=== PATIENT | female | born 1995 | race Caucasian/White ===

== ENCOUNTER 2018-08-06 12:05 | Emergency (ER) | payer OTHER ==
--- NOTE | 2018-08-06 12:29 | ERPHSYRPT ---
- History of Present Illness Time Seen by Provider: 08/06/18 12:22 Historian: patient, family Exam Limitations: no limitations Physician History: The patient is a 22-year-old morbidly obese female with her grandmother complaining of diarrhea and vomiting with abdominal pain that began this morning before going to work. Abdominal pain is in the mid abdomen. She had at least 6 loose stools this morning. She had 2 episodes of vomiting. She denies fever or chills. When she was at work, she was lightheaded. Her past medical history is significant for "stomach issues", polycystic ovarian disease , morbid obesity, GERD, and pilonidal cyst removal. Timing/Duration: today Activities at Onset: none Quality: aching Abdominal Pain Onset Location: epigastric Pain Radiation: no radiation Severity of Pain-Max: moderate Severity of Pain-Current: mild Modifying Factors: Improves With: nothing Associated Symptoms: diarrhea, nausea, vomiting, No fever/chills Previous symptoms: no prior history - Review of Systems Constitutional: No Fever, No Chills Eyes: No Symptoms Ears, Nose, & Throat: No Symptoms Respiratory: No Cough, No Dyspnea Cardiac: No Chest Pain, No Edema, No Syncope Abdominal/Gastrointestinal: Abdominal Pain, Nausea, Vomiting, Diarrhea Genitourinary Symptoms: No Dysuria Musculoskeletal: No Back Pain, No Neck Pain Skin: No Symptoms Neurological: No Dizziness, No Focal Weakness, No Sensory Changes Psychological: No Symptoms Endocrine: No Symptoms Hematologic/Lymphatic: No Symptoms Immunological/Allergic: No Symptoms All Other Systems: Reviewed and Negative - Nursing Vital Signs Nursing Vital Signs: Initial Vital Signs Temperature 98.4 F 08/06/18 12:20 Pulse Rate 106 H 08/06/18 12:20 Respiratory Rate 18 08/06/18 12:20 Blood Pressure 139/88 08/06/18 12:20 O2 Sat by Pulse Oximetry 98 08/06/18 12:20 Pain Scale Pain Intensity 2 - Physical Exam General Appearance: no apparent distress, alert, obese Eye Exam: PERRL/EOMI, eyes nml inspection Ears, Nose, Throat Exam: normal ENT inspection, pharynx normal, moist mucous membranes Neck Exam: normal inspection, non-tender, supple, full range of motion Respiratory Exam: normal breath sounds, lungs clear, No respiratory distress Cardiovascular Exam: regular rate/rhythm, normal heart sounds Gastrointestinal/Abdomen Exam: tenderness (epigastric) Pelvic Exam: not done Rectal Exam: not done Back Exam: normal inspection, normal range of motion, No CVA tenderness, No vertebral tenderness Extremity Exam: normal inspection, normal range of motion, pelvis stable Neurologic Exam: alert, 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, cooperative, normal mood/affect, nml cerebellar function, sensation nml, No motor deficits Skin Exam: normal color, warm, dry SpO2 Interpretation: normal Oxygen Delivery: Room Air Ordered Tests: Active Orders 24 hr Category Date Time Status IV Insertion STAT Care 08/06/18 12:33 Active BMP Stat Lab 08/06/18 13:10 Completed CBC W DIFF Stat Lab 08/06/18 13:10 Completed CULTURE,URINE Stat Lab 08/06/18 12:36 Received HCG QUALITATIVE,SERUM Stat Lab 08/06/18 13:10 Completed Lactic Acid Stat Lab 08/06/18 12:33 Completed UA W/RFX UR CULTURE Stat Lab 08/06/18 12:36 Completed Medication Summary Discontinued Medications Generic Name Dose Route Start Last Admin Trade Name Freq PRN Reason Stop Dose Admin Diphenoxylate HCl/Atropine 1 tablet 08/06/18 12:34 08/06/18 13:11 Lomotil PO 08/06/18 12:35 1 tablet STAT ONE Administration Diphenoxylate HCl/Atropine Confirm 08/06/18 13:05 Lomotil Administered 08/06/18 13:06 Dose 1 tablet .ROUTE .STK-MED ONE Sodium Chloride 1,000 mls @ 999 mls/hr 08/06/18 12:33 08/06/18 13:12 Sodium Chloride 0.9% 1000 Ml IV 08/06/18 13:33 999 mls/hr .Q1H1M STA Administration Sodium Chloride Confirm 08/06/18 13:05 Sodium Chloride 0.9% 1000 Ml Administered 08/06/18 13:06 Dose 1,000 mls @ ud .ROUTE .STK-MED ONE Morphine Sulfate 4 mg 08/06/18 13:02 08/06/18 13:11 Morphine Sulfate 4 Mg Inj IV 08/06/18 13:03 4 mg STAT ONE Administration Morphine Sulfate Confirm 08/06/18 13:05 Morphine Sulfate 4 Mg Inj Administered 08/06/18 13:06 Dose 4 mg .ROUTE .STK-MED ONE Ondansetron HCl 4 mg 08/06/18 12:33 08/06/18 13:12 Zofran 4 Mg/2 Ml Vial IV 08/06/18 12:34 4 mg STAT ONE Administration Ondansetron HCl Confirm 08/06/18 13:05 Zofran 4 Mg/2 Ml Vial Administered 08/06/18 13:06 Dose 4 mg .ROUTE .STK-MED ONE Lab/Rad Data: Laboratory Result Diagrams 08/06/18 13:10 08/06/18 13:10 Laboratory Results 08/06/18 08/06/18 08/06/18 Range/Units 13:10 13:10 13:10 WBC 12.5 H (4.0-10.5) K/mm3 RBC 5.47 H (4.1-5.4) M/mm3 Hgb 14.7 (12.0-16.0) gm/dl Hct 43.7 (35-47) % MCV 79.9 (78-100) fl MCH 26.8 (26-32) pg MCHC 33.6 (32-36) g/dl RDW 13.6 (11.5-14.0) % Plt Count 350 (150-450) K/mm3 MPV 9.9 H (6-9.5) fl Gran % 60.5 (36.0-66.0) % Eos # (Auto) 0.71 H (0-0.5) Absolute Lymphs (auto) 3.69 (1.0-4.6) Absolute Monos (auto) 0.50 (0.0-1.3) Lymphocytes % 29.6 (24.0-44.0) % Monocytes % 4.0 (0.0-12.0) % Eosinophils % 5.7 H (0.00-5.0) % Basophils % 0.2 (0.0-0.4) % Absolute Granulocytes 7.54 H (1.4-6.9) Basophils # 0.02 (0-0.4) Sodium 138 (137-145) mmol/L Potassium 4.2 (3.5-5.1) mmol/L Chloride 104 (98-107) mmol/L Carbon Dioxide 24 (22-30) mmol/L Anion Gap 14.5 (5-15) MEQ/L BUN 19 H (7-17) mg/dL Creatinine 0.78 (0.52-1.04) mg/dL Estimated GFR > 60.0 ML/MIN Glucose 90 (74-106) mg/dL Lactic Acid (0.4-2.0) Calcium 9.4 (8.4-10.2) mg/dL Serum , Qual NEGATIVE (Negative) Urine Color (YELLOW) Urine Appearance (CLEAR) Urine pH (5-6) Ur Specific [place] (1.005-1.025) Urine Protein (Negative) Urine Ketones (NEGATIVE) Urine Blood (0-5) Raman/ul Urine Nitrite (NEGATIVE) Urine Bilirubin (NEGATIVE) Urine Urobilinogen (0-1) mg/dL Ur Leukocyte Esterase (NEGATIVE) Urine WBC (Auto) (0-5) /HPF Urine RBC (Auto) (0-2) /HPF U Epithel Cells (Auto) (FEW) /HPF Urine Bacteria (Auto) (NEGATIVE) /HPF Urine Mucus (Auto) (NEGATIVE) /HPF Urine Culture Reflexed (NO) Urine Glucose (NEGATIVE) mg/dL 08/06/18 08/06/18 Range/Units 12:36 12:33 WBC (4.0-10.5) K/mm3 RBC (4.1-5.4) M/mm3 Hgb (12.0-16.0) gm/dl Hct (35-47) % MCV (78-100) fl MCH (26-32) pg MCHC (32-36) g/dl RDW (11.5-14.0) % Plt Count (150-450) K/mm3 MPV (6-9.5) fl Gran % (36.0-66.0) % Eos # (Auto) (0-0.5) Absolute Lymphs (auto) (1.0-4.6) Absolute Monos (auto) (0.0-1.3) Lymphocytes % (24.0-44.0) % Monocytes % (0.0-12.0) % Eosinophils % (0.00-5.0) % Basophils % (0.0-0.4) % Absolute Granulocytes (1.4-6.9) Basophils # (0-0.4) Sodium (137-145) mmol/L Potassium (3.5-5.1) mmol/L Chloride (98-107) mmol/L Carbon Dioxide (22-30) mmol/L Anion Gap (5-15) MEQ/L BUN (7-17) mg/dL Creatinine (0.52-1.04) mg/dL Estimated GFR ML/MIN Glucose (74-106) mg/dL Lactic Acid 1.3 (0.4-2.0) Calcium (8.4-10.2) mg/dL Serum , Qual (Negative) Urine Color YELLOW (YELLOW) Urine Appearance SLIGHTLY CLOUDY (CLEAR) Urine pH 6.0 (5-6) Ur Specific [place] 1.021 (1.005-1.025) Urine Protein NEGATIVE (Negative) Urine Ketones NEGATIVE (NEGATIVE) Urine Blood NEGATIVE (0-5) Raman/ul Urine Nitrite NEGATIVE (NEGATIVE) Urine Bilirubin NEGATIVE (NEGATIVE) Urine Urobilinogen NEGATIVE (0-1) mg/dL Ur Leukocyte Esterase TRACE (NEGATIVE) Urine WBC (Auto) 3-5 (0-5) /HPF Urine RBC (Auto) 0-2 (0-2) /HPF U Epithel Cells (Auto) RARE (FEW) /HPF Urine Bacteria (Auto) FEW (NEGATIVE) /HPF Urine Mucus (Auto) SLIGHT (NEGATIVE) /HPF Urine Culture Reflexed YES (NO) Urine Glucose NEGATIVE (NEGATIVE) mg/dL - Progress Progress: improved Counseled pt/family regarding: lab results, diagnosis - Departure Time of Disposition: 15:34 Departure Disposition: Home Clinical Impression: Gastroenteritis Condition: Stable Critical Care Time: No Referrals: SOLIS LANGSTON MD [Primary Care Provider] - Additional Instructions: You have vomiting and diarrhea. You were given loperamide, Zofran 4 mg, morphine 4 mg, and fluids by IV in the ER. Follow-up with your primary medical doctor as needed. Begin your diet with of liquid diet and advance as tolerated.
[2018-08-06] MEDS ORDERED: Zofran 4 MG/2 ML VIAL IV ONE (12:33)
[2018-08-06] MEDS ORDERED: Sodium Chloride 0.9% 1000 ML 1,000 ML IV STA (12:33)
[2018-08-06] MEDS ORDERED: Lomotil PO ONE (12:34)
[2018-08-06] MEDS ORDERED: MORPHINE SULFATE 4 MG INJ IV ONE (13:02)
[2018-08-06] MEDS ORDERED: Sodium Chloride 0.9% 1000 ML 1,000 ML ONE (13:05)
[2018-08-06] MEDS ORDERED: MORPHINE SULFATE 4 MG INJ ONE (13:05)
[2018-08-06] MEDS ORDERED: Lomotil ONE (13:05)
[2018-08-06] MEDS ORDERED: Zofran 4 MG/2 ML VIAL ONE (13:05)
[2018-08-06 13:25] LABS: BASOPHIL % 0.2 % (0.0-0.4); Basophil (Absolute #) 0.02 (0-0.4); Eosinophil % 5.7 % (0.00-5.0); Eosinophil (Absolute #) 0.71 (0-0.5); Granulocyte Absolute (ANC) 7.54 (1.4-6.9); Granulocytes % 60.5 % (36.0-66.0); Hematocrit 43.7 % (35-47); Hemoglobin 14.7 gm/dl (12.0-16.0); Lymphocyte (Absolute #) 3.69 (1.0-4.6); Lymphocytes % 29.6 % (24.0-44.0); Mean Cell Volume 79.9 fl (78-100); Mean Corpuscular Hgb Concent. 33.6 g/dl (32-36); Mean Platelet Volume 9.9 fl (6-9.5); Platelet Count 350 K/mm3 (150-450); Red Blood Count 5.47 M/mm3 (4.1-5.4); Red Cell Distribution Width 13.6 % (11.5-14.0); White Blood Count 12.5 K/mm3 (4.0-10.5)
[2018-08-06 13:29] LABS: Appearance SLIGHTLY CLOUDY (CLEAR); Bilirubin NEGATIVE (NEGATIVE); Blood NEGATIVE Ery/ul (0-5); Glucose NEGATIVE (NEGATIVE); Ketones NEGATIVE (NEGATIVE); Leukocyte Esterase TRACE (NEGATIVE); Nitrite NEGATIVE (NEGATIVE); Protein,Urine Dip NEGATIVE (Negative); Specific Gravity 1.021 (1.005-1.025); Urobilinogen NEGATIVE mg/dL (0-1)
[2018-08-06 13:30] LABS: Mean Corpuscular Hemoglobin 26.8 pg (26-32)
[2018-08-06 13:48] LABS: ANION GAP 14.5 MEQ/L (5-15); BLOOD UREA NITROGEN 19 mg/dL (7-17); CHLORIDE 104 mmol/L (98-107); Calcium 9.4 mg/dL (8.4-10.2); Carbon Dioxide 24 mmol/L (22-30); Creatinine 1 0.78 mg/dL (0.52-1.04); Glucose 90 mg/dL (74-106); Potassium 4.2 mmol/L (3.5-5.1); SODIUM 138 mmol/L (137-145)
[2018-08-06 15:15] VITALS: O2SAT 99
[2018-08-06 15:44] VITALS: BP 120/53; PULSE 84
== END 2018-08-06 15:45 | disposition home or self-care (01) ==
LOC: ED 12:05
DX: K52.9 Noninfective gastroenteritis and colitis, unspecified (principal); R11.2 Nausea with vomiting, unspecified; R10.13 Epigastric pain
CPT/HCPCS: 36000; 36415; 80048; 81001; 83605; 84703; 85025; 87086; 96360; 96361; 96374; 96375; 99284; J2270; J2405; A9270-GY

== ENCOUNTER 2019-07-01 10:10 | Emergency (ER) | payer OTHER ==
[2019-07-01 10:24] VITALS: BP 115/74; PULSE 102; O2SAT 97
--- NOTE | 2019-07-01 10:40 | ERPHSYRPT ---
- History of Present Illness Time Seen by Provider: 07/01/19 10:25 Source: patient Exam Limitations: no limitations Patient Subjective Stated Complaint: Began coughing yesterday, yellow sputum, small amount, hard to catch breath, has made her vomit due to coughing so hard Triage Nursing Assessment: Pt walked into the ER, coughing, tachycardic, afebrile, posterior lung sounds clear throughout, pulses normal, denies pain, denies any other symptoms except cough causing her to be short of breath Physician History: 23 y/o obese white female smoker presents with productive cough of yellow sputum for one day. pt gets bronchitis and pneumonia frequently. denies cp, denies fever, denies abd pain. Timing/Duration: day(s) (1) Cough Quality/Degree: mild, productive cough (yellow) Possible Cause: frequent episodes (5 times a year) Modifying Factors: Improves With: coughing, deep breath Associated Symptoms: cough, No shortness of breath Allergies/Adverse Reactions: ciprofloxacin [From Cipro] Allergy (Verified 07/01/19 10:24) famotidine [From Pepcid] Allergy (Verified 07/01/19 10:24) omeprazole Allergy (Verified 07/01/19 10:24) ranitidine Allergy (Verified 07/01/19 10:24) - Review of Systems Constitutional: No Symptoms Eyes: No Symptoms Ears, Nose, & Throat: No Symptoms Respiratory: Cough Cardiac: No Symptoms Abdominal/Gastrointestinal: No Symptoms Genitourinary Symptoms: No Symptoms Musculoskeletal: No Symptoms Skin: No Symptoms Neurological: No Symptoms Psychological: No Symptoms Endocrine: No Symptoms Hematologic/Lymphatic: No Symptoms Immunological/Allergic: No Symptoms All Other Systems: Reviewed and Negative - Past Medical History Pertinent Past Medical History: Yes Neurological History: No Pertinent History ENT History: No Pertinent History Cardiac History: No Pertinent History Respiratory History: No Pertinent History Endocrine Medical History: No Pertinent History Musculoskeletal History: No Pertinent History GI Medical History: GERD History: No Pertinent History Psycho-Social History: No Pertinent History Female Reproductive Disorders: No Pertinent History - Past Surgical History Past Surgical History: Yes Neuro Surgical History: No Pertinent History Cardiac: No Pertinent History Respiratory: No Pertinent History Gastrointestinal: No Pertinent History Genitourinary: No Pertinent History Musculoskeletal: No Pertinent History Female Surgical History: No Pertinent History Other Surgical History: EGG,Colonoscopy, polynoidal cyst removed - Social History Smoking Status: Current every day smoker How long have you smoked: 8 years Exposure to second hand smoke: Yes Drug Use: none Patient Lives Alone: No - Female History Hx Last Menstrual Period: doesn't have periods Hx Now: No (unsure) - Nursing Vital Signs Nursing Vital Signs: Initial Vital Signs Temperature 97.9 F 07/01/19 10:14 Pulse Rate 102 H 07/01/19 10:14 Blood Pressure 115/74 07/01/19 10:14 O2 Sat by Pulse Oximetry 97 07/01/19 10:14 Pain Scale Pain Intensity 0 - Physical Exam General Appearance: no apparent distress, alert, obese Eye Exam: PERRL/EOMI, eyes nml inspection Ears, Nose, Throat Exam: normal ENT inspection, moist mucous membranes Neck Exam: normal inspection, non-tender, supple, full range of motion Respiratory Exam: normal breath sounds, lungs clear, airway intact, No chest tenderness, No respiratory distress Cardiovascular Exam: regular rate/rhythm, normal heart sounds, normal peripheral pulses Gastrointestinal/Abdomen Exam: soft, normal bowel sounds, No tenderness, No guarding Pelvic Exam: not done Rectal Exam: not done Back Exam: normal inspection, normal range of motion, No CVA tenderness, No vertebral tenderness Extremity Exam: normal inspection, normal range of motion, pelvis stable Neurologic Exam: alert, 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, cooperative, discharge coordinator II-XII nml as tested Skin Exam: normal color, warm, dry Lymphatic Exam: No adenopathy SpO2 Interpretation: normal SpO2: 97 O2 Delivery: Room Air - Progress Progress: unchanged Air Movement: good Blood Culture(s) Obtained: No Antibiotics given: No Counseled pt/family regarding: diagnosis, need for follow-up - Departure Departure Disposition: Home Clinical Impression: Bronchitis Condition: Stable Critical Care Time: No Additional Instructions: stop smoking. drink plenty of fluids. follow up with primary doctor for further management Forms: Work/School Release Form Prescriptions: Azithromycin 250 mg [Zithromax 250 MG TABLET] 250 mg PO ZPACK #6 tablet Hydrocodone Bit/Acetaminophen [Hydrocodone-Acetaminophen Soln] 10 ml PO Q6H # 120 ml Prednisone 10 mg [Deltasone 10 mg] 10 mg PO TID #12 tablet
== END 2019-07-01 10:53 | disposition home or self-care (01) ==
LOC: ED 10:10
DX: J40 Bronchitis, not specified as acute or chronic (principal)
CPT/HCPCS: 99283

== ENCOUNTER 2019-08-05 10:19 | Emergency (ER) | payer OTHER ==
[2019-08-05 10:41] VITALS: BP 120/73; PULSE 73; O2SAT 97
[2019-08-05] MEDS ORDERED: TORAdol 30 mg Injection IM ONE (10:43)
[2019-08-05] MEDS ORDERED: Norflex 60 MG/2 ML IM ONE (10:45)
--- NOTE | 2019-08-05 10:46 | ERPHSYRPT ---
- History of Present Illness Time Seen by Provider: 08/05/19 10:45 Source: patient Exam Limitations: no limitations Patient Subjective Stated Complaint: pt reports headache beginning 12/19, states she woke with a sore throat, states she did see a doctor and had a negative strep screen. pt reports pain is to the frontal head and left temporal region. pt reports possibility of . Triage Nursing Assessment: pt is aox3, pt speech is clear, appropriate, pupils perrl, afebrile, resps easy and non labored, radial pulses strong and equal, pt skin pink warm dry. Physician History: pt reports headache beginning tuesday08/01/19, states she woke with a sore throat, states she did see a doctor and had a negative strep screen. pt reports pain is to the frontal head and left temporal region. pt reports possibility of . Quality: aching Head Pain Location: frontal Severity of Pain-Max: moderate Severity of Pain-Current: moderate Recent Head Trauma: frequent headaches Allergies/Adverse Reactions: ciprofloxacin [From Cipro] Allergy (Verified 08/05/19 10:41) famotidine [From Pepcid] Allergy (Verified 08/05/19 10:41) omeprazole Allergy (Verified 08/05/19 10:41) ranitidine Allergy (Verified 08/05/19 10:41) Hx Tetanus, Diphtheria Vaccination/Date Given: (unk) Hx Influenza Vaccination/Date Given: No Hx Pneumococcal Vaccination/Date Given: No Immunizations Up to Date: Yes - Review of Systems Constitutional: No Fever, No Chills Eyes: No Symptoms Ears, Nose, & Throat: No Symptoms Respiratory: No Cough, No Dyspnea Cardiac: No Chest Pain, No Edema, No Syncope Abdominal/Gastrointestinal: No Abdominal Pain, No Nausea, No Vomiting, No Diarrhea Genitourinary Symptoms: No Dysuria Musculoskeletal: No Back Pain, No Neck Pain Skin: No Rash Neurological: Headache, No Dizziness, No Focal Weakness, No Sensory Changes Psychological: No Symptoms Endocrine: No Symptoms All Other Systems: Reviewed and Negative - Past Medical History Pertinent Past Medical History: Yes Neurological History: No Pertinent History ENT History: No Pertinent History Cardiac History: No Pertinent History Respiratory History: No Pertinent History Endocrine Medical History: No Pertinent History Musculoskeletal History: No Pertinent History GI Medical History: GERD History: No Pertinent History Psycho-Social History: No Pertinent History Female Reproductive Disorders: No Pertinent History Other Medical History: pt reports hormonal imbalance, states she does not menstruate, has seen a specialist and her hormones are at "menopause level" - Past Surgical History Past Surgical History: Yes Neuro Surgical History: No Pertinent History Cardiac: No Pertinent History Respiratory: No Pertinent History Gastrointestinal: No Pertinent History Genitourinary: No Pertinent History Musculoskeletal: No Pertinent History Female Surgical History: No Pertinent History Other Surgical History: EGG,Colonoscopy, polynoidal cyst removed - Social History Smoking Status: Current every day smoker How long have you smoked: 8 years Exposure to second hand smoke: Yes Drug Use: none Patient Lives Alone: No - Female History Hx Now: Yes (possible) - Nursing Vital Signs Nursing Vital Signs: Initial Vital Signs Temperature 98.1 F 08/05/19 10:25 Pulse Rate 73 08/05/19 10:25 Respiratory Rate 20 08/05/19 10:25 Blood Pressure 120/73 08/05/19 10:25 O2 Sat by Pulse Oximetry 97 08/05/19 10:25 Pain Scale Pain Intensity 9 - Physical Exam General Appearance: no apparent distress Eye Exam: PERRL/EOMI Ears, Nose, Throat Exam: normal ENT inspection, moist mucous membranes Neck Exam: normal inspection, supple, full range of motion, No meningismus Respiratory Exam: normal breath sounds, lungs clear Cardiovascular Exam: regular rate/rhythm, normal heart sounds Gastrointestinal/Abdominal Exam: soft, No tenderness, No distention Back Exam: normal inspection, normal range of motion Mental Status 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: alert, 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, 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 Exam: normal speech, PERRL, No facial droop Coordination/Gait Exam: normal cerebellar function Motor/Sensory Exam: no motor deficit, no sensory deficit Skin Exam: normal color, warm, dry, No rash SpO2: 97 - Course Nursing assessment & vital signs reviewed: Yes Ordered Tests: Active Orders 24 hr Category Date Time Status CBC W DIFF Stat Lab 08/05/19 11:10 Completed HCG QUALITATIVE,SERUM Stat Lab 08/05/19 11:10 Completed UA W/RFX UR CULTURE Stat Lab 08/05/19 11:06 Completed Medication Summary Discontinued Medications Generic Name Dose Route Start Last Admin Trade Name Freq PRN Reason Stop Dose Admin Ketorolac Tromethamine 60 mg 08/05/19 10:43 08/05/19 10:56 Toradol 30 Mg Injection IM 10/06/19 10:44 60 mg STAT ONE Administration Ketorolac Tromethamine Confirm 08/05/19 10:51 Toradol 30 Mg Injection Administered 08/05/19 10:52 Dose 60 mg .ROUTE .STK-MED ONE Nalbuphine HCl 5 mg 08/05/19 11:48 Nalbuphine Hcl 10 Mg/1 Ml Injection IM 08/05/19 11:49 STAT ONE Orphenadrine Citrate 60 mg 08/05/19 10:45 08/05/19 10:56 Norflex 60 Mg/2 Ml IM 08/05/19 10:46 60 mg STAT ONE Administration Orphenadrine Citrate Confirm 08/05/19 10:52 Norflex 60 Mg/2 Ml Administered 08/05/19 10:53 Dose 60 mg .ROUTE .STK-MED ONE Lab/Rad Data: Laboratory Result Diagrams 08/05/19 11:10 Laboratory Results 08/05/19 08/05/19 08/05/19 Range/Units 11:10 11:10 11:06 WBC 7.8 (4.0-10.5) K/mm3 RBC 5.44 H (4.1-5.4) M/mm3 Hgb 15.2 (12.0-16.0) gm/dl Hct 45.1 (35-47) % MCV 82.9 (78-100) fl MCH 27.9 (26-32) pg MCHC 33.7 (32-36) g/dl RDW 13.9 (11.5-14.0) % Plt Count 290 (150-450) K/mm3 MPV 9.4 (6-9.5) fl Gran % 53.2 (36.0-66.0) % Eos # (Auto) 0.20 (0-0.5) Absolute Lymphs (auto) 2.77 (1.0-4.6) Absolute Monos (auto) 0.64 (0.0-1.3) Lymphocytes % 35.6 (24.0-44.0) % Monocytes % 8.2 (0.0-12.0) % Eosinophils % 2.6 (0.00-5.0) % Basophils % 0.4 (0.0-0.4) % Absolute Granulocytes 4.15 (1.4-6.9) Basophils # 0.03 (0-0.4) Serum , Qual NEGATIVE (Negative) Urine Color YELLOW (YELLOW) Urine Appearance CLEAR (CLEAR) Urine pH 5.0 (5-6) Ur Specific [place] 1.024 (1.005-1.025) Urine Protein NEGATIVE (Negative) Urine Ketones NEGATIVE (NEGATIVE) Urine Blood NEGATIVE (0-5) Raman/ul Urine Nitrite NEGATIVE (NEGATIVE) Urine Bilirubin NEGATIVE (NEGATIVE) Urine Urobilinogen NEGATIVE (0-1) mg/dL Ur Leukocyte Esterase NEGATIVE (NEGATIVE) Urine WBC (Auto) 6-10 (0-5) /HPF Urine RBC (Auto) 0-2 (0-2) /HPF U Epithel Cells (Auto) RARE (FEW) /HPF Urine Bacteria (Auto) RARE (NEGATIVE) /HPF Urine Mucus (Auto) SLIGHT (NEGATIVE) /HPF Urine Culture Reflexed NO (NO) Urine Glucose NEGATIVE (NEGATIVE) mg/dL - Progress Progress: improved Counseled pt/family regarding: lab results, diagnosis, need for follow-up - Departure Departure Disposition: Home Clinical Impression: UTI (urinary tract infection) Qualifiers: Urinary tract infection type: site unspecified Hematuria presence: without hematuria Qualified Code(s): N39.0 - Urinary tract infection, site not specified Migraine Qualifiers: Migraine type: with aura Status migrainosus presence: without status migrainosus Intractability: intractable Qualified Code(s): G43.119 - Migraine with aura, intractable, without status migrainosus Condition: Stable Critical Care Time: No Referrals: Provider,Unknown [Primary Care Provider] - Instructions: Headache, Adult (DC), Migraine Headache (DC), Urinary Tract Infection, Adult (DC) Additional Instructions: HEADACHE 1. After discharge from the emergency department, you should rest at home in a cool, dark, quiet place for 12-24 hours. 2. If any of the following signs or symptoms are noticed, you should be re- evaluated right away: A. Visual changes B. Stiff Neck C. Change in quality or location of pain D. Fever E. Recurrent vomiting 3. If pain medications were prescribed or given, they may cause drowsiness. URINARY TRACT INFECTION 1. You will need to drink plenty of fluids in order to keep your urinary system flushed. These fluids should mainly consist of water and juices. 2. Take medications as directed. You need to completely finish any antiobiotic prescription given. 3. Try to avoid coffee, tea, alcohol, and seasoned foods as they may cause bladder irritation. 4. If signs and symptoms persist after 3-4 days, you will need to follow up with your family physician. 5. Female Patients: A. Avoid intercourse for 3-4 days. B. Empty bladder before and after intercourse to reduce risk of re- infection. C. After emptying bladder, wipe from front to back to reduce the risk of re- infection. Discharge/Care Plan MONTY TOWNSEND was seen on 08/05/19 in the Emergency Room. The patient was counseled regarding Diagnosis,Lab results, Imaging studies, need for follow up and when to return to the Emergency Room. Prescriptions given: Discharge Note I have spoken with the patient and/or caregivers. I have explained the patient' s condition, diagnosis and treatment plan based on the information available to me at this time. I have answered the patient's and/or caregiver's questions and addressed any concerns. The patient and/or caregivers have as good understanding of the patient's diagnosis, condition and treatment plan as can be expected at this point. The vital signs have been stable. The patient's condition is stable and appropriate for discharge from the emergency department. The patient will pursue further outpatient evaluation with the primary care physician or other designated or consulting physician as outlined in the discharge instructions. The patient and/or caregivers are agreeable to this plan of care and follow-up instructions have been explained in detail. The patient and/or caregivers have received these instruction. The patient/and or caregivers are aware that any significant change in condition or worsening of symptoms should prompt an immediate return to this or the closest emergency department or call 911. MONTY TOWNSEND was seen on 08/05/19 n the Emergency Room. At that time you were treated for an emergent condition, during your visit Laboratory, Radiology and/ or other procedures may have been ordered. It is very important that you follow- up with your Primary Care Physician Unknown Provider within the next 24-48 hours to review your Emergency Room visit and the final results of testing that was ordered. Some test results such as Urine Cultures, Blood Cultures, and other cultures if ordered will not be finalized for 24-48 hours. If you do not have a Primary Care Provider please call the medical records department at [phone] ext [phone] to obtain a copy of your results or you may sign into our patient portal to obtain these results by visiting us @ [email or web address] and completing the following steps: 1. Click on the Patient Portal link 2. Click the Patient Self Enrollment Link to complete the enrollment form and entering your 3. Once the enrollment form is completed you will receive an email with a temporary ID and password at the email address you provided. 4. Next choose a user name and password. Your user name must be at least 4 characters long and your password must be at least 4 characters long. 5. Choose a security question from the list and provide your answer to the question. If you already have signed into the Health Portal you may access your Health Care Information 23/05 by the following steps: 1. Login to our website @ [email or web address] 2. Enter your original user name and password. FAQS The [facility] Health Portal is an online tool that contains your Lab Results, Radiology Reports, Visit History, Discharge Instructions and Health Summary Lab and Radiology Results will not be available for 72 hours on the portal. The Portal is a secure site, passwords are encryted and URLs are re-written so they cannot be copied and pasted. You and authorized family members are the only ones who can access your Portal. Also there is a timeout feature that protects your information if you leave the Portal page open. If you have technical difficulty please use the Contact Us link on the page this will allow you to submit any questions you have regarding the Portal or you may contact the Medical Record Department at [phone]. Prescriptions: Smz/Tmp Ds Tablet [Bactrim Ds Tablet] 1 udtab PO BID #20 tablet Naproxen 375 mg [Naprosyn 375 mg] 375 mg PO Q8H #30 tablet
[2019-08-05] MEDS ORDERED: TORAdol 30 mg Injection ONE (10:51)
[2019-08-05] MEDS ORDERED: Norflex 60 MG/2 ML ONE (10:52)
[2019-08-05 11:29] LABS: Absolute Neutrophil Ct (ANC) 4.15 (1.4-6.9); BASOPHIL % 0.4 % (0.0-0.4); Basophil (Absolute #) 0.03 (0-0.4); Eosinophil % 2.6 % (0.00-5.0); Hematocrit 45.1 % (35-47); Hemoglobin 15.2 gm/dl (12.0-16.0); Lymphocyte (Absolute #) 2.77 (1.0-4.6); Lymphocytes % 35.6 % (24.0-44.0); Mean Cell Volume 82.9 fl (78-100); Mean Corpuscular Hemoglobin 27.9 pg (26-32); Mean Corpuscular Hgb Concent. 33.7 g/dl (32-36); Mean Platelet Volume 9.4 fl (6-9.5); Monocyte (Absolute #) 0.64 (0.0-1.3); Monocytes % 8.2 % (0.0-12.0); Neutrophil % 53.2 % (36.0-66.0); Platelet Count 290 K/mm3 (150-450); Red Blood Count 5.44 M/mm3 (4.1-5.4); Red Cell Distribution Width 13.9 % (11.5-14.0); White Blood Count 7.8 K/mm3 (4.0-10.5)
[2019-08-05 11:36] LABS: Appearance CLEAR (CLEAR); Bacteria RARE /HPF (NEGATIVE); Bilirubin NEGATIVE (NEGATIVE); Blood NEGATIVE Ery/ul (0-5); Epithelial Cells RARE /HPF (FEW); Glucose NEGATIVE (NEGATIVE); Ketones NEGATIVE (NEGATIVE); Leukocyte Esterase NEGATIVE (NEGATIVE); Mucus SLIGHT /HPF (NEGATIVE); Nitrite NEGATIVE (NEGATIVE); Protein,Urine Dip NEGATIVE (Negative); RBC 0-2 /HPF (0-2); Specific Gravity 1.024 (1.005-1.025); Urobilinogen NEGATIVE mg/dL (0-1)
[2019-08-05] MEDS ORDERED: NALBUPHINE HCL 10 MG/1 ML INJECTION IM ONE (11:48)
== END 2019-08-05 12:09 | disposition home or self-care (01) ==
LOC: ED 10:19
DX: N39.0 Urinary tract infection, site not specified (principal); G43.119 Migraine with aura, intractable, without status migrainosus
CPT/HCPCS: 36415; 81001; 81025; 85025; 96372; 99284; J1885; J2360

== ENCOUNTER 2019-10-14 06:43 | Emergency (ER) | payer OTHER ==
[2019-10-14] MEDS ORDERED: Norflex 60 MG/2 ML IM ONE (07:16)
[2019-10-14] MEDS ORDERED: TORAdol 30 mg Injection IM ONE (07:16)
--- NOTE | 2019-10-14 07:20 | ERPHSYRPT ---
- History of Present Illness Time Seen by Provider: 10/14/19 07:18 Source: patient Exam Limitations: no limitations Patient Subjective Stated Complaint: pt states that she had a headache for the past 3 days, pt states that she has taken OTC medication with no relief, pt states that she went to her PCP on tuesday and had fever, pt states that she has had a headache like this in the past that last for 7 days and did not want it to last that long, pt states that light and sound affect her headache, pt states that headache is worse with sudden movement Triage Nursing Assessment: pt ambulated into the er, pt axo x4, pt states 7/10 pain to head, pt is holding her head, pupils 3 mm and PERRL, vital wnl Physician History: pt states that she had a headache for the past 3 days, pt states that she has taken OTC medication with no relief, pt states that she went to her PCP on tuesday and had fever, pt states that she has had a headache like this in the past that last for 7 days and did not want it to last that long, pt states that light and sound affect her headache, pt states that headache is worse with sudden movement Timing/Duration: day(s) (3 days) Quality: throbbing Head Pain Location: global Severity of Pain-Max: moderate Severity of Pain-Current: moderate Recent Head Trauma: frequent headaches Associated Symptoms: denies symptoms Previous symptoms: same symptoms as today Allergies/Adverse Reactions: ciprofloxacin [From Cipro] Allergy (Verified 10/14/19 07:08) famotidine [From Pepcid] Allergy (Verified 10/14/19 07:08) omeprazole Allergy (Verified 10/14/19 07:08) ranitidine Allergy (Verified 10/14/19 07:08) Hx Tetanus, Diphtheria Vaccination/Date Given: (unk) Hx Influenza Vaccination/Date Given: No Hx Pneumococcal Vaccination/Date Given: No - Review of Systems Constitutional: No Fever, No Chills Eyes: No Symptoms Ears, Nose, & Throat: No Symptoms Respiratory: No Cough, No Dyspnea Cardiac: No Chest Pain, No Edema, No Syncope Abdominal/Gastrointestinal: No Abdominal Pain, No Nausea, No Vomiting, No Diarrhea Genitourinary Symptoms: No Dysuria Musculoskeletal: No Back Pain, No Neck Pain Skin: No Rash Neurological: Headache, No Dizziness, No Focal Weakness, No Sensory Changes Psychological: No Symptoms Endocrine: No Symptoms All Other Systems: Reviewed and Negative - Past Medical History Pertinent Past Medical History: Yes Neurological History: No Pertinent History ENT History: No Pertinent History Cardiac History: No Pertinent History, Other Respiratory History: No Pertinent History Endocrine Medical History: No Pertinent History Musculoskeletal History: No Pertinent History GI Medical History: GERD History: No Pertinent History Psycho-Social History: No Pertinent History Female Reproductive Disorders: No Pertinent History Other Medical History: pt reports hormonal imbalance, states she does not menstruate, has seen a specialist and her hormones are at "menopause level", heart murmur - Past Surgical History Past Surgical History: Yes Neuro Surgical History: No Pertinent History Cardiac: No Pertinent History Respiratory: No Pertinent History Gastrointestinal: No Pertinent History Genitourinary: No Pertinent History Musculoskeletal: No Pertinent History Female Surgical History: No Pertinent History Other Surgical History: EGG,Colonoscopy, polynoidal cyst removed - Social History Smoking Status: Current every day smoker How long have you smoked: 8 years Exposure to second hand smoke: Yes Drug Use: marijuana Patient Lives Alone: No - Female History Hx Last Menstrual Period: unknown Hx Now: (possible) - Nursing Vital Signs Nursing Vital Signs: Initial Vital Signs Temperature 97.7 F 10/14/19 06:49 Pulse Rate 92 H 10/14/19 06:49 Respiratory Rate 16 10/14/19 06:49 Blood Pressure 132/71 10/14/19 06:49 Pain Scale Pain Intensity 7 - Physical Exam General Appearance: no apparent distress Eye Exam: PERRL/EOMI Ears, Nose, Throat Exam: normal ENT inspection, moist mucous membranes Neck Exam: normal inspection, supple, full range of motion, No meningismus Respiratory Exam: normal breath sounds, lungs clear Cardiovascular Exam: regular rate/rhythm, normal heart sounds Gastrointestinal/Abdominal Exam: soft, No tenderness, No distention Back Exam: normal inspection, normal range of motion Mental 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, 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, 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 Exam: normal speech, PERRL, No facial droop Coordination/Gait Exam: normal cerebellar function Motor/Sensory Exam: no motor deficit, no sensory deficit Skin Exam: normal color, warm, dry, No rash - Course Nursing assessment & vital signs reviewed: Yes Ordered Tests: Medication Summary Discontinued Medications Generic Name Dose Route Start Last Admin Trade Name Freq PRN Reason Stop Dose Admin Ketorolac Tromethamine 60 mg 10/14/19 07:16 10/14/19 07:30 Toradol 30 Mg Injection IM 10/14/19 07:17 60 mg STAT ONE Administration Ketorolac Tromethamine Confirm 10/14/19 07:25 Toradol 30 Mg Injection Administered 10/14/19 07:26 Dose 60 mg .ROUTE .STK-MED ONE Orphenadrine Citrate 60 mg 10/14/19 07:16 10/14/19 07:29 Norflex 60 Mg/2 Ml IM 10/14/19 07:17 60 mg STAT ONE Administration Orphenadrine Citrate Confirm 10/14/19 07:25 Norflex 60 Mg/2 Ml Administered 10/14/19 07:26 Dose 60 mg .ROUTE .STK-MED ONE - Progress Progress: improved Air Movement: good Blood Culture(s) Obtained: No Antibiotics given: No Counseled pt/family regarding: diagnosis, need for follow-up - Departure Departure Disposition: Home Clinical Impression: Migraine Qualifiers: Migraine type: unspecified Status migrainosus presence: without status migrainosus Intractability: not intractable Qualified Code(s): G43.909 - Migraine, unspecified, not intractable, without status migrainosus Condition: Stable Critical Care Time: No Referrals: Provider,Unknown [Primary Care Provider] - Instructions: Headache, Adult (DC), Migraine Headache (DC) Additional Instructions: Discharge/Care Plan MONTY TOWNSEND was seen on 10/14/19 in the Emergency Room. The patient was counseled regarding Diagnosis,Lab results, Imaging studies, need for follow up and when to return to the Emergency Room. Prescriptions given: Discharge Note I have spoken with the patient and/or caregivers. I have explained the patient' s condition, diagnosis and treatment plan based on the information available to me at this time. I have answered the patient's and/or caregiver's questions and addressed any concerns. The patient and/or caregivers have as good understanding of the patient's diagnosis, condition and treatment plan as can be expected at this point. The vital signs have been stable. The patient's condition is stable and appropriate for discharge from the emergency department. The patient will pursue further outpatient evaluation with the primary care physician or other designated or consulting physician as outlined in the discharge instructions. The patient and/or caregivers are agreeable to this plan of care and follow-up instructions have been explained in detail. The patient and/or caregivers have received these instruction. The patient/and or caregivers are aware that any significant change in condition or worsening of symptoms should prompt an immediate return to this or the closest emergency department or call 911. Forms: Work/School Release Form Prescriptions: Naproxen 375 mg [Naprosyn 375 mg] 375 mg PO Q8H #30 tablet
[2019-10-14] MEDS ORDERED: TORAdol 30 mg Injection ONE (07:25)
[2019-10-14] MEDS ORDERED: Norflex 60 MG/2 ML ONE (07:25)
[2019-10-14 09:43] VITALS: BP 131/73; PULSE 78; O2SAT 99
== END 2019-10-14 08:04 | disposition home or self-care (01) ==
LOC: ED 06:43
DX: G43.909 Migraine, unspecified, not intractable, without status migrainosus (principal)
CPT/HCPCS: 96372; 99284; J1885; J2360

== ENCOUNTER 2020-05-13 22:05 | Emergency (ER) | payer OTHER ==
--- NOTE | 2020-05-13 22:10 | ERPHSYRPT ---
- History of Present Illness Time Seen by Provider: 05/13/20 22:10 Source: patient Exam Limitations: no limitations Physician History: This is an obese 24-year-old white female who presents with left earache that woke her up yesterday morning. Patient was seen at an urgent care clinic. She was given a prescription for Augmentin. She started that yesterday. She has had 3 doses of the antibiotic. Plain Tylenol is not helping with the pain. Patient happened to be given a shot intramuscularly of a steroid. Is unclear whether she received a long-acting steroid injection versus a short acting steroid injection. Timing/Duration: abrupt onset (Yesterday morning) Severity: moderate ENT Location: ear (L) Associated Symptoms: ear pain (L), No cough, No fever, No sore throat (This is) Allergies/Adverse Reactions: ranitidine Allergy (Mild, Verified 05/13/20 22:23) ciprofloxacin [From Cipro] Allergy (Verified 05/13/20 22:23) famotidine [From Pepcid] Allergy (Verified 05/13/20 22:23) omeprazole Allergy (Verified 05/13/20 22:23) Home Medications: Amoxicillin/Potassium Clav [Augmentin 875-125 Tablet] 1 tab PO BID 05/13/20 [History] Hx Tetanus, Diphtheria Vaccination/Date Given: (unk) Hx Influenza Vaccination/Date Given: No Hx Pneumococcal Vaccination/Date Given: No Travel Risk - International Travel Have you traveled outside of the country in past 3 weeks: No - Coronavirus Screening Are you exhibiting any of the following symptoms?: No Close contact with a COVID-19 positive Pt in past 14-21 Days: No - Review of Systems Constitutional: No Symptoms Eyes: No Symptoms Ears, Nose, & Throat: Ear Pain Respiratory: No Symptoms Cardiac: No Symptoms Abdominal/Gastrointestinal: No Symptoms Genitourinary Symptoms: No Symptoms Musculoskeletal: No Symptoms Skin: No Symptoms Neurological: No Symptoms Psychological: No Symptoms Endocrine: No Symptoms Hematologic/Lymphatic: No Symptoms Immunological/Allergic: No Symptoms All Other Systems: Reviewed and Negative - Past Medical History Pertinent Past Medical History: Yes Neurological History: No Pertinent History ENT History: No Pertinent History Cardiac History: No Pertinent History, Other Respiratory History: No Pertinent History Endocrine Medical History: No Pertinent History Musculoskeletal History: No Pertinent History GI Medical History: GERD History: No Pertinent History Psycho-Social History: No Pertinent History Female Reproductive Disorders: No Pertinent History Other Medical History: pt reports hormonal imbalance, states she does not menstruate, has seen a specialist and her hormones are at "menopause level", heart murmur - Past Surgical History Past Surgical History: Yes Neuro Surgical History: No Pertinent History Cardiac: No Pertinent History Respiratory: No Pertinent History Gastrointestinal: No Pertinent History Genitourinary: No Pertinent History Musculoskeletal: No Pertinent History Female Surgical History: No Pertinent History Other Surgical History: EGG,Colonoscopy, polynoidal cyst removed - Social History Smoking Status: Current every day smoker How long have you smoked: 8 years Exposure to second hand smoke: Yes Drug Use: marijuana Patient Lives Alone: No - Nursing Vital Signs Nursing Vital Signs: Initial Vital Signs Temperature 97.1 F 05/13/20 22:14 Pulse Rate 93 H 05/13/20 22:14 Respiratory Rate 18 05/13/20 22:14 Blood Pressure 178/117 05/13/20 22:14 O2 Sat by Pulse Oximetry 96 05/13/20 22:14 Pain Scale Pain Intensity 6 - Physical Exam General Appearance: mild distress, alert, anxiety, obese Eye Exam: bilateral eye: normal inspection, PERRL, EOMI Ear Exam: right ear: other (Cerumen obscuring the canal and tympanic membrane), left ear: auricle normal, TM red Nasal Exam: normal inspection Throat Exam: normal, pharynx normal, moist mucus membranes, No dental tenderness Neck Exam: normal inspection, non-tender, supple, full range of motion, trachea midline Cardiovascular/Respiratory Exam: chest non-tender, normal breath sounds, regular rate/rhythm, heart sounds normal, no respiratory distress Abdominal Exam: non-tender, soft, No guarding, No tenderness Neurologic Exam: alert, 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, cooperative, sanitary chemist II-XII nml as tested, normal mood/affect, nml cerebellar function, nml station & gait, sensation nml Skin Exam: normal color, warm, dry O2 Delivery: Room Air - Course Nursing assessment & vital signs reviewed: Yes - Progress Progress: improved, pain not gone completely Counseled pt/family regarding: diagnosis, need for follow-up - Departure Departure Disposition: Home Clinical Impression: Left otitis media Condition: Stable Critical Care Time: No Referrals: Provider,Unknown [Primary Care Provider] - Additional Instructions: Take your antibiotic as prescribed. May add ibuprofen 600 mg orally with food 3 times a day for the next 5 days if there are no contraindications and you are not allergic. Follow-up with your primary care physician for further management of your symptoms. Prescriptions: Hydrocodone/APAP 5/325 [[place] 5/325 mg] 1 each PO Q8H PRN PRN #6 tablet MDD 3 PRN Reason: Pain
[2020-05-13 22:23] VITALS: BP 178/117; PULSE 93; O2SAT 96
[2020-05-13] MEDS ORDERED: Rocephin 1000 MG INJ IM ONE (22:35)
[2020-05-13] MEDS ORDERED: NORCO 5/325 MG PO ONE ×2 (22:35→22:36)
[2020-05-13] MEDS ORDERED: Rocephin 1000 MG INJ ONE (22:36)
[2020-05-13] MEDS ORDERED: NORCO 5/325 MG ONE (22:36)
== END 2020-05-13 22:57 ==
LOC: ED 22:05
DX: H66.92 Otitis media, unspecified, left ear (principal)
CPT/HCPCS: 96372; 99283; J0696; A9270-GY

== ENCOUNTER 2020-07-30 09:30 | Emergency (ER) | payer OTHER ==
[2020-07-30 09:58] VITALS: O2SAT 98
--- NOTE | 2020-07-30 10:57 | XRAY ---
Indication: Pain following injury. Comparison: None 3 nonweightbearing views left foot obtained. No bony, articular, or soft tissue abnormalities.
--- NOTE | 2020-07-30 11:36 | ERPHSYRPT ---
- History of Present Illness Time Seen by Provider: 07/30/20 09:55 Source: patient Exam Limitations: no limitations Patient Subjective Stated Complaint: L foot injury Triage Nursing Assessment: pt to ED c/o L foot pain after having yady laboy dropped on her foot 0200 this morning. states pain and swelling have worsened since injury. pt is ambulatory to ED but walks with limp. rates 7/10 aching pain that occasionally shoots down to L big toe when ambulating. swelling noted and brusing to top of foot. extremely tender to touch. Method of Injury: direct blow (Talon hitch fell on it.) Occurred: just prior to arrival Quality: constant Severity of Pain-Max: moderate Severity of Pain-Current: moderate Lower Extremities Pain: hip: left, leg: left, knee: left, thigh: left, foot: left, ankle: left, heel: left, 1st toe: left, 2nd toe: left, 3rd toe: left, 4th toe: left, 5th toe: left, other: left Allergies/Adverse Reactions: ranitidine Allergy (Mild, Verified 05/13/20 22:23) ciprofloxacin [From Cipro] Allergy (Verified 05/13/20 22:23) famotidine [From Pepcid] Allergy (Verified 05/13/20 22:23) omeprazole Allergy (Verified 05/13/20 22:23) Home Medications: Amoxicillin/Potassium Clav [Augmentin 875-125 Tablet] 1 tab PO BID 05/13/20 [History] Hx Tetanus, Diphtheria Vaccination/Date Given: No (unk) Hx Influenza Vaccination/Date Given: Yes Hx Pneumococcal Vaccination/Date Given: No Travel Risk - International Travel Have you traveled outside of the country in past 3 weeks: No - Coronavirus Screening Are you exhibiting any of the following symptoms?: No Close contact with a COVID-19 positive Pt in past 14-21 Days: No - Review of Systems Constitutional: No Symptoms Eyes: No Symptoms Ears, Nose, & Throat: No Symptoms Respiratory: No Symptoms Cardiac: No Symptoms Abdominal/Gastrointestinal: No Symptoms Genitourinary Symptoms: No Symptoms Musculoskeletal: No Symptoms, Joint Pain (Left foot today) Skin: No Symptoms Neurological: No Symptoms, Sensory Changes Endocrine: No Symptoms Hematologic/Lymphatic: No Symptoms Immunological/Allergic: No Symptoms All Other Systems: Reviewed and Negative - Past Medical History Pertinent Past Medical History: Yes Neurological History: No Pertinent History ENT History: No Pertinent History Cardiac History: No Pertinent History, Other Respiratory History: Asthma Endocrine Medical History: No Pertinent History Musculoskeletal History: No Pertinent History GI Medical History: GERD History: No Pertinent History Psycho-Social History: No Pertinent History Female Reproductive Disorders: No Pertinent History Other Medical History: pt reports hormonal imbalance, states she does not menstruate, has seen a specialist and her hormones are at "menopause level", heart murmur - Past Surgical History Past Surgical History: Yes Neuro Surgical History: No Pertinent History Cardiac: No Pertinent History Respiratory: No Pertinent History Gastrointestinal: No Pertinent History Genitourinary: No Pertinent History Musculoskeletal: No Pertinent History Female Surgical History: No Pertinent History Other Surgical History: EGG,Colonoscopy, polynoidal cyst removed - Social History Smoking Status: Current every day smoker How long have you smoked: 8 years Exposure to second hand smoke: Yes Drug Use: none Patient Lives Alone: No - Female History Hx Last Menstrual Period: 3 days ago Hx Now: (unknown) - Nursing Vital Signs Nursing Vital Signs: Initial Vital Signs Temperature 97.9 F 07/30/20 09:51 Pulse Rate 68 07/30/20 09:51 Respiratory Rate 18 07/30/20 09:51 Blood Pressure 126/75 07/30/20 09:51 O2 Sat by Pulse Oximetry 98 07/30/20 09:51 Pain Scale Pain Intensity 5 - Physical Exam General Appearance: mild distress, alert Eyes, Ears, Nose, Throat Exam: normal ENT inspection Neck Exam: normal inspection Cardiovascular/Respiratory Exam: chest non-tender, normal breath sounds, regular rate/rhythm Gastrointestinal/Abdominal Exam: non-tender Back Exam: normal inspection Hips Exam: bilateral: non-tender, normal inspection, normal range of motion, no evidence of injury Legs Exam: bilateral leg: non-tender, normal inspection, normal range of motion, no evidence of injury Knees Exam: bilateral knee: non-tender, normal inspection, normal range of motion, no evidence of injury Ankle Exam: bilateral ankle: non-tender, normal inspection, normal range of motion, no evidence of injury Foot Exam: right foot: non-tender, normal inspection, normal range of motion, no evidence of injury, left foot: bone tenderness (TTP dorsal left foot), limited range of motion, pain, soft tissue tenderness, swelling Neuro/Tendon Exam: normal sensation, normal motor functions, normal tendon functions, no evidence tendon injury Mental Status Exam: alert, 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, cooperative Skin Exam: normal color SpO2 Interpretation: normal SpO2: 98 O2 Delivery: Room Air Procedures - Splinting Location of Splint: Foot Type of Splint: Other (Arian wrap) Splint Applied By: ED Nurse Pre-Proc Neuro Vasc Exam: normal Post-Proc Neuro Vasc Exam: neurovascular intact - Course Nursing assessment & vital signs reviewed: Yes - Radiology Exams Foot X-ray Interpretation: Reviewed by me, Negative, No Fracture Ordered Tests: Active Orders 24 hr Category Date Time Status Arian Bandage Application -[facility] STAT Care 07/30/20 11:38 Completed FOOT (MINIMUM 3 VIEWS) Stat Exams 07/30/20 10:36 Completed HCG,QUALITATIVE URINE Stat Lab 07/30/20 10:00 Completed Lab/Rad Data: Laboratory Results 07/30/20 Range/Units 10:00 Urine HCG, Qual NEGATIVE (Negative) - Progress Progress: unchanged Progress Note: 07/30/20 11:37 She declines any tx other than arian wrap, no Rx desired. Counseled pt/family regarding: diagnosis, rad results - Departure Departure Disposition: Home Clinical Impression: Foot contusion Qualifiers: Encounter type: initial encounter Laterality: left Qualified Code(s): S90.32XA - Contusion of left foot, initial encounter Condition: Stable Critical Care Time: No Referrals: DOCTOR,NO FAMILY [Primary Care Provider] - Instructions: Foot Sprain (DC) Additional Instructions: Arian wrap for comfort. Elevate, ice, OTC pain med, resume activity as tolerated, recheck as needed. Forms: Work/School Release Form
[2020-07-30 11:57] VITALS: BP 121/84; PULSE 69
== END 2020-07-30 12:03 | disposition home or self-care (01) ==
LOC: ED 09:30
DX: S90.32XA Contusion of left foot, initial encounter (principal); W22.8XXA Striking against or struck by other objects, initial encounter; Y92.9 Unspecified place or not applicable
CPT/HCPCS: 73630; 84703; 99284

== ENCOUNTER 2022-01-09 22:26 | Emergency (ER) | payer OTHER ==
[2022-01-09 22:33] VITALS: O2SAT 99
[2022-01-09] MEDS ORDERED: Reglan 10 MG/2 ML IV ONE (22:46)
[2022-01-09] MEDS ORDERED: Sodium Chloride 0.9% 1000 ML 1,000 ML IV STA (22:46)
[2022-01-09] MEDS ORDERED: Reglan 10 MG/2 ML ONE (22:49)
[2022-01-09] MEDS ORDERED: Sodium Chloride 0.9% 1000 ML 1,000 ML ONE (22:49)
[2022-01-09 23:00] LABS: Absolute Neutrophil Ct (ANC) 8.31 (1.4-6.9); Basophil (Absolute #) 0.02 (0-0.4); Eosinophil % 1.4 % (0.00-5.0); Eosinophil (Absolute #) 0.16 (0-0.5); Hematocrit 45.1 % (35-47); Hemoglobin 15.5 gm/dl (12.0-16.0); Lymphocyte (Absolute #) 1.79 (1.0-4.6); Lymphocytes % 16.2 % (24.0-44.0); Mean Cell Volume 82.8 fl (78-100); Mean Corpuscular Hemoglobin 28.4 pg (26-32); Mean Corpuscular Hgb Concent. 34.4 g/dl (32-36); Monocyte (Absolute #) 0.78 (0.0-1.3); Monocytes % 7.1 % (0.0-12.0); Neutrophil % 75.1 % (36.0-66.0); Platelet Count 280 K/mm3 (150-450); Red Blood Count 5.45 M/mm3 (4.1-5.4); White Blood Count 11.1 K/mm3 (4.0-10.5)
--- NOTE | 2022-01-09 23:05 | ERPHSYRPT ---
- History of Present Illness Time Seen by Provider: 01/09/22 23:01 Historian: patient Exam Limitations: no limitations Patient Subjective Stated Complaint: nausea, diarrhea, bloated Triage Nursing Assessment: pt c/o nausea and bloated and having gas x4 days, diarrhea x3 days. No diarrhea since early this morning and no vomiting. Pt c/o abd cramps. Abd lg, obese with active bs x4 quad, tender on palpation. Physician History: Patient is 26-year-old female came to the emergency room with the history of abdominal pain cramping in nature, diarrhea for last 3 days. Patient was seen in the acute care facility today and was given Zofran and Bentyl for symptomatic relief but patient symptoms did not relieve. Patient was also complaining of fever with chills yesterday. Fever was about 103 F. Patient did not have the same type of symptoms before. Patient denies any other symptoms. Patient was tested negative for COVID at acute care Timing/Duration: day(s) (three days) Activities at Onset: none Quality: cramping Abdominal Pain Onset Location: epigastric, periumbilical Pain Radiation: no radiation Severity of Pain-Max: moderate Severity of Pain-Current: moderate Modifying Factors: Improves With: nothing Associated Symptoms: diarrhea, loss of appetite, nausea Previous symptoms: no prior history Allergies/Adverse Reactions: ranitidine Allergy (Mild, Verified 05/13/20 22:23) ciprofloxacin [From Cipro] Allergy (Verified 05/13/20 22:23) famotidine [From Pepcid] Allergy (Verified 05/13/20 22:23) omeprazole Allergy (Verified 05/13/20 22:23) Home Medications: Dicyclomine HCl 20 mg [Bentyl 20 mg] 1 tab PO Q6HPRN PRN 01/09/22 [History] Diphenoxylate HCl/Atropine [Diphenoxylate-Atrop 2.5-0.025] 1 tab PO Q8HPRN PRN 01/09/22 [History] Ondansetron [Zuplenz] 1 tab PO Q8HPRN PRN 01/09/22 [History] Hx Tetanus, Diphtheria Vaccination/Date Given: Yes Hx Influenza Vaccination/Date Given: Yes Hx Pneumococcal Vaccination/Date Given: No Immunizations Up to Date: Yes Travel Risk - International Travel Have you traveled outside of the country in past 3 weeks: No - Coronavirus Screening Are you exhibiting any of the following symptoms?: Yes Symptoms: Fever, Vomiting/Diarrhea, Headaches/Body Aches/Fatigue Close contact with a COVID-19 positive Pt in past 14-21 Days: No - Vaccine Status Have you recieved a Covid-19 vaccination: No - Review of Systems Constitutional: No Fever, No Chills Eyes: No Symptoms Ears, Nose, & Throat: No Symptoms Respiratory: No Cough, No Dyspnea Cardiac: No Chest Pain, No Edema, No Syncope Abdominal/Gastrointestinal: Abdominal Pain, Nausea, Diarrhea, No Vomiting Genitourinary Symptoms: No Dysuria Musculoskeletal: No Back Pain, No Neck Pain Skin: No Rash Neurological: No Dizziness, No Focal Weakness, No Sensory Changes Psychological: No Symptoms Endocrine: No Symptoms All Other Systems: Reviewed and Negative - Past Medical History Pertinent Past Medical History: Yes Neurological History: No Pertinent History ENT History: No Pertinent History Cardiac History: Other Respiratory History: Asthma Endocrine Medical History: No Pertinent History Musculoskeletal History: No Pertinent History GI Medical History: GERD History: Other Psycho-Social History: Depression Female Reproductive Disorders: No Pertinent History Other Medical History: pt reports hormonal imbalance, states she does not menstruate, has seen a specialist and her hormones are at "menopause level", heart murmur, kidney stones - Past Surgical History Past Surgical History: Yes Neuro Surgical History: No Pertinent History Cardiac: No Pertinent History Respiratory: No Pertinent History Gastrointestinal: No Pertinent History Genitourinary: No Pertinent History Musculoskeletal: No Pertinent History Female Surgical History: No Pertinent History Other Surgical History: EGG,Colonoscopy, polynoidal cyst removed - Social History Smoking Status: Current every day smoker How long have you smoked: 10 yrs Exposure to second hand smoke: Yes Drug Use: none Patient Lives Alone: No - Female History Hx Now: No - Nursing Vital Signs Nursing Vital Signs: Initial Vital Signs Temperature 98.1 F 01/09/22 22:30 Pulse Rate 114 H 01/09/22 22:30 Respiratory Rate 20 01/09/22 22:30 Blood Pressure 122/87 01/09/22 22:30 O2 Sat by Pulse Oximetry 99 01/09/22 22:30 Pain Scale Pain Intensity 6 - Physical Exam General Appearance: no apparent distress, alert Eye Exam: PERRL/EOMI, eyes nml inspection Ears, Nose, Throat Exam: normal ENT inspection, pharynx normal, moist mucous membranes Neck Exam: normal inspection, non-tender, supple, full range of motion Respiratory Exam: normal breath sounds, lungs clear, No respiratory distress Cardiovascular Exam: regular rate/rhythm, normal heart sounds Gastrointestinal/Abdomen Exam: soft, normal bowel sounds, tenderness, distention, No mass, No rebound Back Exam: normal inspection, normal range of motion, No CVA tenderness, No vert ebral tenderness Extremity Exam: normal inspection, normal range of motion, pelvis stable Neurologic Exam: alert, 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, cooperative, normal mood/affect, nml cerebellar function, sensation nml, No motor deficits Skin Exam: normal color, warm, dry SpO2: 99 - Course Nursing assessment & vital signs reviewed: Yes - CT Exams Abdomen/Pelvis CT Interpretation: Tele-radiologist Report (colitis) Ordered Tests: Active Orders 24 hr Category Date Time Status IV Insertion STAT Care 01/09/22 22:41 Active ABDOMEN AND PELVIS W/0 CONTRAS [CT] Stat Exams 01/09/22 23:14 Taken AMYLASE Stat Lab 01/09/22 22:35 Completed CBC W DIFF Stat Lab 01/09/22 22:35 Completed CMP Stat Lab 01/09/22 22:35 Completed CULTURE,URINE Stat Lab 01/09/22 23:59 Received HCG QUALITATIVE,SERUM Stat Lab 01/09/22 22:35 Completed LIPASE Stat Lab 01/09/22 22:35 Completed UA W/RFX UR CULTURE Stat Lab 01/09/22 23:59 Completed Medication Summary Generic Name Dose Route Start Last Admin Trade Name Freq PRN Reason Stop Dose Admin Metronidazole 500 mg in 100 mls @ 200 mls/hr 01/10/22 00:19 01/10/22 00:21 Flagyl 500 Mg Ivpb IV 01/10/22 00:48 200 mls/hr STAT STA 200 mls/hr Administration Discontinued Medications Generic Name Dose Route Start Last Admin Trade Name Freq PRN Reason Stop Dose Admin Sodium Chloride 1,000 mls @ 999 mls/hr 01/09/22 22:46 01/10/22 00:03 Sodium Chloride 0.9% 1000 Ml IV 01/09/22 23:46 Infused .Q1H1M STA Infusion Sodium Chloride Confirm 01/09/22 22:49 Sodium Chloride 0.9% 1000 Ml Administered 01/09/22 22:50 Dose 1,000 mls @ ud .ROUTE .STK-MED ONE Metoclopramide HCl 10 mg 01/09/22 22:46 01/09/22 22:51 Metoclopramide Hcl 10 Mg/2 Ml Vial IV 01/09/22 22:47 10 mg STAT ONE Administration Metoclopramide HCl Confirm 01/09/22 22:49 Metoclopramide Hcl 10 Mg/2 Ml Vial Administered 01/09/22 22:50 Dose 10 mg .ROUTE .STK-MED ONE Lab/Rad Data: Laboratory Result Diagrams 01/09/22 22:35 01/09/22 22:35 Laboratory Results 01/09/22 01/09/22 01/09/22 Range/Units 23:59 22:35 22:35 WBC (4.0-10.5) K/mm3 RBC (4.1-5.4) M/mm3 Hgb (12.0-16.0) gm/dl Hct (35-47) % MCV (78-100) fl MCH (26-32) pg MCHC (32-36) g/dl RDW (11.5-14.0) % Plt Count (150-450) K/mm3 MPV (7.5-11.0) fl Gran % (36.0-66.0) % Eos # (Auto) (0-0.5) Absolute Lymphs (auto) (1.0-4.6) Absolute Monos (auto) (0.0-1.3) Lymphocytes % (24.0-44.0) % Monocytes % (0.0-12.0) % Eosinophils % (0.00-5.0) % Basophils % (0.0-0.4) % Absolute Granulocytes (1.4-6.9) Basophils # (0-0.4) Sodium 136 L (137-145) mmol/L Potassium 4.0 (3.5-5.1) mmol/L Chloride 105 (98-107) mmol/L Carbon Dioxide 22 (22-30) mmol/L Anion Gap 13.1 (5-15) MEQ/L BUN 14 (7-17) mg/dL Creatinine 0.79 (0.52-1.04) mg/dL Estimated GFR > 60.0 ML/MIN Glucose 113 H (74-106) mg/dL Calcium 9.2 (8.4-10.2) mg/dL Total Bilirubin 0.50 (0.2-1.3) mg/dL AST 25 (14-36) U/L ALT 21 (0-35) U/L Alkaline Phosphatase 77 (38-126) U/L Serum Total Protein 7.1 (6.3-8.2) g/dL Albumin 3.8 (3.5-5.0) g/dL Amylase 40 (30-110) U/L Lipase 45 (23-300) U/L Serum , Qual NEGATIVE (Negative) Urine Color YELLOW (YELLOW) Urine Appearance SLIGHTLY CLOUDY (CLEAR) Urine pH 5.0 (5-6) Ur Specific [place] 1.023 (1.005-1.025) Urine Protein 30 (Negative) Urine Ketones NEGATIVE (NEGATIVE) Urine Blood MODERATE (0-5) Raman/ul Urine Nitrite NEGATIVE (NEGATIVE) Urine Bilirubin NEGATIVE (NEGATIVE) Urine Urobilinogen NEGATIVE (0-1) mg/dL Ur Leukocyte Esterase TRACE (NEGATIVE) Urine WBC (Auto) 6-10 (0-5) /HPF Urine RBC (Auto) NONE (0-2) /HPF U Epithel Cells (Auto) RARE (FEW) /HPF Urine Bacteria (Auto) NONE (NEGATIVE) /HPF Urine Mucus (Auto) SLIGHT (NEGATIVE) /HPF Urine Culture Reflexed YES (NO) Urine Glucose NEGATIVE (NEGATIVE) mg/dL 01/09/22 Range/Units 22:35 WBC 11.1 H (4.0-10.5) K/mm3 RBC 5.45 H (4.1-5.4) M/mm3 Hgb 15.5 (12.0-16.0) gm/dl Hct 45.1 (35-47) % MCV 82.8 (78-100) fl MCH 28.4 (26-32) pg MCHC 34.4 (32-36) g/dl RDW 13.0 (11.5-14.0) % Plt Count 280 (150-450) K/mm3 MPV 10.0 (7.5-11.0) fl Gran % 75.1 H (36.0-66.0) % Eos # (Auto) 0.16 (0-0.5) Absolute Lymphs (auto) 1.79 (1.0-4.6) Absolute Monos (auto) 0.78 (0.0-1.3) Lymphocytes % 16.2 L (24.0-44.0) % Monocytes % 7.1 (0.0-12.0) % Eosinophils % 1.4 (0.00-5.0) % Basophils % 0.2 (0.0-0.4) % Absolute Granulocytes 8.31 H (1.4-6.9) Basophils # 0.02 (0-0.4) Sodium (137-145) mmol/L Potassium (3.5-5.1) mmol/L Chloride (98-107) mmol/L Carbon Dioxide (22-30) mmol/L Anion Gap (5-15) MEQ/L BUN (7-17) mg/dL Creatinine (0.52-1.04) mg/dL Estimated GFR ML/MIN Glucose (74-106) mg/dL Calcium (8.4-10.2) mg/dL Total Bilirubin (0.2-1.3) mg/dL AST (14-36) U/L ALT (0-35) U/L Alkaline Phosphatase (38-126) U/L Serum Total Protein (6.3-8.2) g/dL Albumin (3.5-5.0) g/dL Amylase (30-110) U/L Lipase (23-300) U/L Serum , Qual (Negative) Urine Color (YELLOW) Urine Appearance (CLEAR) Urine pH (5-6) Ur Specific [place] (1.005-1.025) Urine Protein (Negative) Urine Ketones (NEGATIVE) Urine Blood (0-5) Raman/ul Urine Nitrite (NEGATIVE) Urine Bilirubin (NEGATIVE) Urine Urobilinogen (0-1) mg/dL Ur Leukocyte Esterase (NEGATIVE) Urine WBC (Auto) (0-5) /HPF Urine RBC (Auto) (0-2) /HPF U Epithel Cells (Auto) (FEW) /HPF Urine Bacteria (Auto) (NEGATIVE) /HPF Urine Mucus (Auto) (NEGATIVE) /HPF Urine Culture Reflexed (NO) Urine Glucose (NEGATIVE) mg/dL - Progress Progress: improved, pain not gone completely Counseled pt/family regarding: lab results, diagnosis, need for follow-up, rad results - Departure Departure Disposition: Home Clinical Impression: Colitis without complication Condition: Stable Critical Care Time: No Referrals: SOLIS LANGSTON MD [Primary Care Provider] - Follow Up with PCP/3 days Instructions: Acute Abdomen (Belly Pain), Adult (DC), Colitis Additional Instructions: Discharge/Care Plan MONTY TOWNSEND was seen on 01/10/22 in the Emergency Room. The patient was counseled regarding Diagnosis,Lab results, Imaging studies, need for follow up and when to return to the Emergency Room. Prescriptions given: Discharge Note I have spoken with the patient and/or caregivers. I have explained the patient's condition, diagnosis and treatment plan based on the information available to me at this time. I have answered the patient's and/or caregiver's questions and addressed any concerns. The patient and/or caregivers have as good understanding of the patient's diagnosis, condition and treatment plan as can be expected at this point. The vital signs have been stable. The patient's condition is stable and appropriate for discharge from the emergency department. The patient will pursue further outpatient evaluation with the primary care physician or other designated or consulting physician as outlined in the discharge instructions. The patient and/or caregivers are agreeable to this plan of care and follow-up instructions have been explained in detail. The patient and/or caregivers have received these instruction. The patient/and or caregivers are aware that any significant change in condition or worsening of symptoms shou ld prompt an immediate return to this or the closest emergency department or call 911. MONTY TOWNSEND was seen on 01/10/22 n the Emergency Room. At that time you were treated for an emergent condition, during your visit Laboratory, Radiology and/or other procedures may have been ordered. It is very important that you follow-up with your Primary Care Physician SOLIS LANGSTON within the next 24-48 hours to review your Emergency Room visit and the final results of testing that was ordered. Some test results such as Urine Cultures, Blood Cultures, and other cultures if ordered will not be finalized for 24-48 hours. If you do not have a Primary Care Provider please call the medical records department at [phone] to obtain a copy of your results or you may sign into our patient portal to obtain these results by visiting us @ [email or web address] and completing the following steps: 1. Click on the Patient Portal link 2. Click the Patient Self Enrollment Link to complete the enrollment form and entering your 3. Once the enrollment form is completed you will receive an email with a temporary ID and password at the email address you provided. 4. Next choose a user name and password. Your user name must be at least 4 characters long and your password must be at least 4 characters long. 5. Choose a security question from the list and provide your answer to the question. If you already have signed into the Health Portal you may access your Health Care Information 23/05 by the following steps: 1. Login to our website @ [email or web address] 2. Enter your original user name and password. FAQS The [facility] Health Portal is an online tool that contains your Lab Results, Radiology Reports, Visit History, Discharge Instructions and Health Summary Lab and Radiology Results will not be available for 72 hours on the portal. The Portal is a secure site, passwords are encryted and URLs are re-written so they cannot be copied and pasted. You and authorized family members are the only ones who can access your Portal. Also there is a timeout feature that protects your information if you leave the Portal page open. If you have technical difficulty please use the Contact Us link on the page this will allow you to submit any questions you have regarding the Portal or you may contact the Medical Record Department at [phone]. Prescriptions: Metronidazole 500 mg [Flagyl 500 MG] 500 mg PO TID #30 tablet
[2022-01-09 23:11] LABS: ALBUMIN 3.8 g/dL (3.5-5.0); ALKALINE PHOSPHATASE 77 U/L (38-126); AMYLASE 40 U/L (30-110); ANION GAP 13.1 MEQ/L (5-15); BLOOD UREA NITROGEN 14 mg/dL (7-17); CHLORIDE 105 mmol/L (98-107); Calcium 9.2 mg/dL (8.4-10.2); Carbon Dioxide 22 mmol/L (22-30); Creatinine 1 0.79 mg/dL (0.52-1.04); EST GLOMERULAR FILTRATION RATE > 60.0 ML/MIN; Glucose 113 mg/dL (74-106); LIPASE 45 U/L (23-300); SGOT/AST 25 U/L (14-36); SGPT/ALT 21 U/L (0-35); SODIUM 136 mmol/L (137-145); Total Protein 7.1 g/dL (6.3-8.2)
[2022-01-10 00:06] LABS: Appearance SLIGHTLY CLOUDY (CLEAR); Bilirubin NEGATIVE (NEGATIVE); Blood MODERATE Ery/ul (0-5); Epithelial Cells RARE /HPF (FEW); Glucose NEGATIVE (NEGATIVE); Ketones NEGATIVE (NEGATIVE); Leukocyte Esterase TRACE (NEGATIVE); Mucus SLIGHT /HPF (NEGATIVE); Nitrite NEGATIVE (NEGATIVE); Protein,Urine Dip 30 (Negative); Specific Gravity 1.023 (1.005-1.025); Urobilinogen NEGATIVE mg/dL (0-1)
[2022-01-10] MEDS ORDERED: FLAGYL 500 MG IVPB 500 MG/100 ML BAG IV STA (00:19)
[2022-01-10] MEDS ORDERED: FLAGYL 500 MG IVPB 500 MG/100 ML BAG IV ONE (00:20)
[2022-01-10 00:30] VITALS: BP 132/84; PULSE 100
--- NOTE | 2022-01-10 08:18 | XRAY ---
Indication: Periumbilical pain for days. Cramping. Multiple contiguous axial images obtained through the abdomen and pelvis without contrast. Comparison: None Lung bases are clear. Heart not enlarged. Noncontrasted stomach and bowel loops appear nonobstructed. Normal appendix. Ascending and proximal transverse colon demonstrates minimal pericolonic stranding favoring colitis. No free fluid/air. Fatty liver and 13.3 cm splenomegaly. Nonobstructing right renal punctate calculus. Remaining liver, gallbladder, pancreas, spleen, adrenal glands, kidneys, ureters, bladder, uterus, and aorta are unremarkable for noncontrast exam. Osseous structures intact. No ventral or inguinal hernias. Impression: 1. Minimal right hemicolon colitis. 2. Incidental fatty liver, splenomegaly, and nonobstructing right renal micro-calculus. Comment: Preliminary interpretation made by [facility]. No critical discrepancy.
== END 2022-01-10 00:57 | disposition home or self-care (01) ==
LOC: ED 22:26
DX: K52.9 Noninfective gastroenteritis and colitis, unspecified (principal); R10.13 Epigastric pain; R10.33 Periumbilical pain; R50.9 Fever, unspecified; R11.0 Nausea; K21.9 Gastro-esophageal reflux disease without esophagitis; Z87.442 Personal history of urinary calculi; Z72.0 Tobacco use
CPT/HCPCS: 36000; 36415; 74176; 80053; 81001; 81025; 82150; 83690; 85025; 87077; 87086; 87186; 96374; 99284

== ENCOUNTER 2022-02-15 06:56 | Emergency (ER) | payer OTHER ==
[2022-02-15] MEDS ORDERED: MORPHINE SULFATE 4 MG INJ IV ONE (07:05)
[2022-02-15] MEDS ORDERED: Zofran 4 MG/2 ML VIAL IV ONE (07:05)
[2022-02-15] MEDS ORDERED: Sodium Chloride 0.9% 1000 ML 1,000 ML IV STA (07:05)
--- NOTE | 2022-02-15 07:11 | ERPHSYRPT ---
- History of Present Illness Time Seen by Provider: 02/15/22 07:20 Historian: patient Exam Limitations: no limitations Physician History: Patient is a 26-year-old female presents to emergency department for evaluation of abdominal pain. Patient states he is experiencing right lower quadrant pain. Pain described as a sharp sensation. Patient states the pain awoke her from her sleep. Patient was very nauseous. No trauma. No fever. Symptoms are moderate in intensity. Patient denies a history of the same. Family at bedside. Patient states he is otherwise healthy. She voices no other complaints or concerns at this time. Timing/Duration: today Activities at Onset: none Quality: aching Abdominal Pain Onset Location: RLQ Pain Radiation: no radiation Severity of Pain-Max: moderate Severity of Pain-Current: mild Modifying Factors: Improves With: movement, palpation Associated Symptoms: denies symptoms Previous symptoms: no prior history Allergies/Adverse Reactions: ranitidine Allergy (Mild, Verified 02/15/22 07:06) ciprofloxacin [From Cipro] Allergy (Verified 02/15/22 07:06) famotidine [From Pepcid] Allergy (Verified 02/15/22 07:06) omeprazole Allergy (Verified 02/15/22 07:06) Hx Tetanus, Diphtheria Vaccination/Date Given: Yes Hx Influenza Vaccination/Date Given: Yes Hx Pneumococcal Vaccination/Date Given: No Travel Risk - Vaccine Status Have you recieved a Covid-19 vaccination: No - Review of Systems Constitutional: No Symptoms, No Fever, No Chills Eyes: No Symptoms Ears, Nose, & Throat: No Symptoms Respiratory: No Symptoms, No Cough, No Dyspnea Cardiac: No Symptoms, No Chest Pain, No Edema, No Syncope Abdominal/Gastrointestinal: No Symptoms, No Abdominal Pain, No Nausea, No Vomiting, No Diarrhea Genitourinary Symptoms: No Symptoms, No Dysuria Musculoskeletal: No Symptoms, No Back Pain, No Neck Pain Skin: No Symptoms, No Rash Neurological: No Symptoms, No Dizziness, No Focal Weakness, No Sensory Changes Psychological: No Symptoms Endocrine: No Symptoms Hematologic/Lymphatic: No Symptoms Immunological/Allergic: No Symptoms All Other Systems: Reviewed and Negative - Past Medical History Pertinent Past Medical History: Yes Neurological History: No Pertinent History ENT History: No Pertinent History Cardiac History: Other Respiratory History: Asthma Endocrine Medical History: No Pertinent History Musculoskeletal History: No Pertinent History GI Medical History: GERD History: Other Psycho-Social History: Depression Female Reproductive Disorders: No Pertinent History Other Medical History: pt reports hormonal imbalance, states she does not menstruate, has seen a specialist and her hormones are at "menopause level", heart murmur, kidney stones - Past Surgical History Past Surgical History: Yes Neuro Surgical History: No Pertinent History Cardiac: No Pertinent History Respiratory: No Pertinent History Gastrointestinal: No Pertinent History Genitourinary: No Pertinent History Musculoskeletal: No Pertinent History Female Surgical History: No Pertinent History Other Surgical History: EGG,Colonoscopy, polynoidal cyst removed - Social History Smoking Status: Current every day smoker How long have you smoked: 10 yrs Exposure to second hand smoke: Yes Drug Use: none Patient Lives Alone: No - Female History Hx Now: No - Nursing Vital Signs Nursing Vital Signs: Initial Vital Signs Temperature 97.3 F 02/15/22 07:09 Pulse Rate 97 H 02/15/22 07:09 Respiratory Rate 18 02/15/22 07:09 Blood Pressure 135/95 02/15/22 07:09 O2 Sat by Pulse Oximetry 99 02/15/22 07:09 Pain Scale Pain Intensity 1 - Physical Exam General Appearance: no apparent distress, alert Eye Exam: PERRL/EOMI, eyes nml inspection Ears, Nose, Throat Exam: normal ENT inspection, TMs normal, pharynx normal, moist mucous membranes Neck Exam: normal inspection, non-tender, supple, full range of motion Respiratory Exam: normal breath sounds, lungs clear, airway intact, No chest tenderness, No respiratory distress Cardiovascular Exam: regular rate/rhythm, normal heart sounds, normal peripheral pulses Gastrointestinal/Abdomen Exam: soft, tenderness (Right lower quadrant abdominal pain and tenderness), guarding, rebound, No mass Back Exam: normal inspection, normal range of motion, No CVA tenderness, No vertebral tenderness Extremity Exam: normal inspection, normal range of motion, pelvis stable Neurologic Exam: alert, 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, cooperative, 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 Incidental observation of a fatty liver) Ordered Tests: Active Orders 24 hr Category Date Time Status EKG-ER Only STAT Care 02/15/22 07:05 Active IV Insertion STAT Care 02/15/22 07:05 Active ABDOMEN AND PELVIS W/0 CONTRAS [CT] Stat Exams 02/15/22 09:01 Completed CBC W DIFF Stat Lab 02/15/22 07:15 Completed CMP Stat Lab 02/15/22 07:15 Completed CULTURE,URINE Stat Lab 02/15/22 07:51 Received HCG QUALITATIVE,SERUM Stat Lab 02/15/22 07:19 Completed HCG,QUALITATIVE URINE Stat Lab 02/15/22 07:51 Completed LIPASE Stat Lab 02/15/22 07:15 Completed Manual Differential NC Stat Lab 02/15/22 07:15 Completed TROPONIN Q3H Lab 02/15/22 07:15 Completed TROPONIN Q3H Lab 02/15/22 19:15 Ordered Medication Summary Discontinued Medications Generic Name Dose Route Start Last Admin Trade Name Willyq PRN Reason Stop Dose Admin Ceftriaxone Sodium 1,000 mg 02/15/22 10:51 02/15/22 10:56 Ceftriaxone Sodium 1000 Mg Inj Vial IM 02/15/22 10:52 1,000 mg STAT ONE Administration Ceftriaxone Sodium Confirm 02/15/22 10:54 Ceftriaxone Sodium 1000 Mg Inj Vial Administered 02/15/22 10:55 Dose 1,000 mg .ROUTE .STK-MED ONE Sodium Chloride 1,000 mls @ 999 mls/hr 02/15/22 07:05 02/15/22 08:35 Sodium Chloride 0.9% 1000 Ml IV 02/15/22 08:05 Infused .Q1H1M STA Infusion Sodium Chloride Confirm 02/15/22 07:14 Sodium Chloride 0.9% 1000 Ml Administered 02/15/22 07:15 Dose 1,000 mls @ ud .ROUTE .STK-MED ONE Ketorolac Tromethamine Confirm 02/15/22 08:04 Ketorolac Tromethamine 30 Mg/Ml Inj Administered 02/15/22 08:05 Dose 30 mg .ROUTE .STK-MED ONE Ketorolac Tromethamine 30 mg 02/15/22 08:05 02/15/22 08:08 Ketorolac Tromethamine 30 Mg/Ml Inj IV 02/15/22 08:06 30 mg STAT ONE Administration Lidocaine HCl Confirm 02/15/22 10:54 Lidocaine Hcl 1% 20 Ml Mdv 20 Ml Ml Administered 02/15/22 10:55 Dose 3 ml .ROUTE .STK-MED ONE Morphine Sulfate 4 mg 02/15/22 07:05 02/15/22 07:19 Morphine Sulfate 4 Mg/Ml Injection IV 02/15/22 07:06 4 mg STAT ONE Administration Morphine Sulfate Confirm 02/15/22 07:13 Morphine Sulfate 4 Mg/Ml Injection Administered 02/15/22 07:14 Dose 4 mg .ROUTE .STK-MED ONE Ondansetron HCl 4 mg 02/15/22 07:05 02/15/22 07:19 Ondansetron Hcl 4 Mg/2 Ml Vial IV 02/15/22 07:06 4 mg STAT ONE Administration Ondansetron HCl Confirm 02/15/22 07:13 Ondansetron Hcl 4 Mg/2 Ml Vial Administered 02/15/22 07:14 Dose 4 mg .ROUTE .STK-MED ONE Tamsulosin HCl 0.4 mg 02/15/22 10:51 02/15/22 10:56 Tamsulosin Hcl 0.4 Mg Cap PO 02/15/22 10:52 0.4 mg DAILY STA Administration Tamsulosin HCl Confirm 02/15/22 10:54 Tamsulosin Hcl 0.4 Mg Cap Administered 02/15/22 10:55 Dose 0.4 mg .ROUTE .STK-MED ONE Lab/Rad Data: Laboratory Result Diagrams 02/15/22 07:15 02/15/22 07:15 Laboratory Results 02/15/22 02/15/22 02/15/22 Range/Units 07:51 07:51 07:19 WBC (4.0-10.5) K/mm3 RBC (4.1-5.4) M/mm3 Hgb (12.0-16.0) gm/dl Hct (35-47) % MCV (78-100) fl MCH (26-32) pg MCHC (32-36) g/dl RDW (11.5-14.0) % Plt Count (150-450) K/mm3 MPV (7.5-11.0) fl Gran % (36.0-66.0) % Eos # (Auto) (0-0.5) Absolute Lymphs (auto) (1.0-4.6) Absolute Monos (auto) (0.0-1.3) Lymphocytes % (24.0-44.0) % Monocytes % (0.0-12.0) % Eosinophils % (0.00-5.0) % Basophils % (0.0-0.4) % Absolute Granulocytes (1.4-6.9) Segmented Neutrophils (36.0-66.0) % Lymphocytes (Manual) (24-44) % Monocytes (Manual) (0.0-12.0) % Eosinophils (Manual) (0.00-3.0) % Basophils # (0-0.4) Platelet Estimate (NORMAL) RBC Morphology Sodium (137-145) mmol/L Potassium (3.5-5.1) mmol/L Chloride (98-107) mmol/L Carbon Dioxide (22-30) mmol/L Anion Gap (5-15) MEQ/L BUN (7-17) mg/dL Creatinine (0.52-1.04) mg/dL Estimated GFR ML/MIN Glucose (74-106) mg/dL Calcium (8.4-10.2) mg/dL Total Bilirubin (0.2-1.3) mg/dL AST (14-36) U/L ALT (0-35) U/L Alkaline Phosphatase (38-126) U/L Troponin I (0.000-0.034) ng/mL Serum Total Protein (6.3-8.2) g/dL Albumin (3.5-5.0) g/dL Lipase (23-300) U/L Serum , Qual NEGATIVE (Negative) Urinalys Dipstick Clnc MAIN LAB Urine Color YELLOW (YELLOW) Urine Appearance CLOUDY (CLEAR) Urine pH 5.5 (5-6) Ur Specific [place] >=1.030 (1.005-1.025) POC Urine Protein Conf 30 (Negative) Urine Ketones NEGATIVE (NEGATIVE) Urine Nitrite NEGATIVE (NEGATIVE) Urine Bilirubin NEGATIVE (NEGATIVE) Urine Urobilinogen 0.2 (0-1) mg/dL Urine Leukocytes NEGATIVE (NEGATIVE) Urine WBC (Auto) 26-50 (0-5) /HPF Urine RBC (Auto) 51-100 (0-2) /HPF U Hyaline Cast (Auto) 6-10 (0-2) /LPF U Epithel Cells (Auto) PACKED (FEW) /HPF Urine Bacteria (Auto) FEW (NEGATIVE) /HPF Urine RBC LARGE (0-5) Raman/ul Urine Mucus (Auto) MANY (NEGATIVE) /HPF Ur Culture Indicated? YES Urine Glucose NEGATIVE (NEGATIVE) mg/dL Urine HCG, Qual NEGATIVE (Negative) 02/15/22 02/15/22 02/15/22 Range/Units 07:15 07:15 07:15 WBC 18.3 H (4.0-10.5) K/mm3 RBC 5.09 (4.1-5.4) M/mm3 Hgb 14.7 (12.0-16.0) gm/dl Hct 42.7 (35-47) % MCV 83.9 (78-100) fl MCH 28.9 (26-32) pg MCHC 34.4 (32-36) g/dl RDW 13.6 (11.5-14.0) % Plt Count 353 (150-450) K/mm3 MPV 9.7 (7.5-11.0) fl Gran % 46.2 (36.0-66.0) % Eos # (Auto) 0.49 (0-0.5) Absolute Lymphs (auto) 7.74 H (1.0-4.6) Absolute Monos (auto) 1.58 H (0.0-1.3) Lymphocytes % 42.2 (24.0-44.0) % Monocytes % 8.6 (0.0-12.0) % Eosinophils % 2.7 (0.00-5.0) % Basophils % 0.3 (0.0-0.4) % Absolute Granulocytes 8.47 H (1.4-6.9) Segmented Neutrophils 51 (36.0-66.0) % Lymphocytes (Manual) 36 (24-44) % Monocytes (Manual) 9 (0.0-12.0) % Eosinophils (Manual) 4 H (0.00-3.0) % Basophils # 0.06 (0-0.4) Platelet Estimate NORMAL (NORMAL) RBC Morphology NORMAL Sodium 139 (137-145) mmol/L Potassium 3.4 L (3.5-5.1) mmol/L Chloride 104 (98-107) mmol/L Carbon Dioxide 23 (22-30) mmol/L Anion Gap 14.8 (5-15) MEQ/L BUN 19 H (7-17) mg/dL Creatinine 0.93 (0.52-1.04) mg/dL Estimated GFR > 60.0 ML/MIN Glucose 103 (74-106) mg/dL Calcium 9.3 (8.4-10.2) mg/dL Total Bilirubin 0.60 (0.2-1.3) mg/dL AST 26 (14-36) U/L ALT 27 (0-35) U/L Alkaline Phosphatase 64 (38-126) U/L Troponin I < 0.012 (0.000-0.034) ng/mL Serum Total Protein 6.8 (6.3-8.2) g/dL Albumin 3.8 (3.5-5.0) g/dL Lipase 154 (23-300) U/L Serum , Qual (Negative) Urinalys Dipstick Clnc Urine Color (YELLOW) Urine Appearance (CLEAR) Urine pH (5-6) Ur Specific [place] (1.005-1.025) POC Urine Protein Conf (Negative) Urine Ketones (NEGATIVE) Urine Nitrite (NEGATIVE) Urine Bilirubin (NEGATIVE) Urine Urobilinogen (0-1) mg/dL Urine Leukocytes (NEGATIVE) Urine WBC (Auto) (0-5) /HPF Urine RBC (Auto) (0-2) /HPF U Hyaline Cast (Auto) (0-2) /LPF U Epithel Cells (Auto) (FEW) /HPF Urine Bacteria (Auto) (NEGATIVE) /HPF Urine RBC (0-5) Raman/ul Urine Mucus (Auto) (NEGATIVE) /HPF Ur Culture Indicated? Urine Glucose (NEGATIVE) mg/dL Urine HCG, Qual (Negative) - Progress Progress: improved Progress Note: Patient reassessed. Pain significantly improved. CT reveals a 1 to 2 mm right UVJ ureterolithiasis with mild hydronephrosis. Incidental fatty liver. Urinalysis reveals a urinary tract infection with microscopic hematuria. Patient does have a leukocytosis of 18,000. She is currently afebrile. Urology on page 02/15/22 10:37 Urology consulted. I discussed the case with Dr. Rendon. He is aware that dede diez has a 1 to 2 mm right UVJ stone with mild hydronephrosis and leukocytosis. No fever. He advised discharge. Patient to be discharged home with a urine strainer Flomax antibiotics and pain control. If the stone does not pass within [address] Rendon will remove the stone operatively. Plan of care discussed with patient. She agrees to follow-up with Dr. Rendon within 48 hours for evaluation. Patient received Flomax in our ED. IM antibiotics administered in our ED. Patient is aware of the importance of good hydration. Patient given a urine strainer for home as well. Patient will follow up with Dr. Rendon in 48 hours for reevaluation. She voices no other complaints or concerns at this time. Portions of this note were created with voice recognition technology. There may be grammatical, spelling, punctuation or sound alike errors 02/15/22 10:[address] Hercules address and contact information. 02/15/22 10:[address] Other (Dr. Hercules of urology) Will see patient in: office Counseled pt/family regarding: lab results, diagnosis, need for follow-up, rad results - Departure Departure Disposition: Home Clinical Impression: Abdominal pain, Urinary tract infection, Leukocytosis, Hypokalemia, Microscopic hematuria, Ureterolithiasis, Hydronephrosis, Fatty liver Condition: Stable Critical Care Time: No Referrals: SOLIS LANGSTON MD [Primary Care Provider] - Follow up/PCP as directed ANGEL HERCULES DO [NON-STAFF PHY W/O PRIVILEGES] - Follow up/PCP as directed Instructions: Kidney Stones (DC) Additional Instructions: Dr. Hercules of urology advises a wait time of 24 to 48 hours for the stone to pass. Dr. Hercules want to see you in his office in 48 hours for a reevaluation. Dr. Hercules contact information is provided to you in this packet. Call today for 48-hour follow-up Discharge/Care Plan MONTY TOWNSEND was seen on 02/15/22 in the Emergency Room. The patient was counseled regarding Diagnosis,Lab results, Imaging studies, need for follow up and when to return to the Emergency Room. Prescriptions given: Discharge Note I have spoken with the patient and/or caregivers. I have explained the patient's condition, diagnosis and treatment plan based on the information available to me at this time. I have answered the patient's and/or caregiver's questions and addressed any concerns. The patient and/or caregivers have as good understanding of the patient's diagnosis, condition and treatment plan as can be expected at this point. The vital signs have been stable. The patient's condition is stable and appropriate for discharge from the emergency department. The patient will pursue further outpatient evaluation with the primary care physician or other designated or consulting physician as outlined in the discharge instructions. The patient and/or caregivers are agreeable to this plan of care and follow-up instructions have been explained in detail. The patient and/or caregivers have received these instruction. The patient/and or caregivers are aware that any significant change in condition or worsening of symptoms should prompt an immediate return to this or the closest emergency department or call 911. Prescriptions: Tamsulosin HCl 0.4 mg [Flomax 0.4 MG] 0.4 mg PO DAILY 14 Days #14 cap Cephalexin Mh 500 mg [Keflex 500 mg] 500 mg PO QID 7 Days #28 cap
[2022-02-15] MEDS ORDERED: Zofran 4 MG/2 ML VIAL ONE (07:13)
[2022-02-15] MEDS ORDERED: MORPHINE SULFATE 4 MG INJ ONE (07:13)
[2022-02-15] MEDS ORDERED: Sodium Chloride 0.9% 1000 ML 1,000 ML ONE (07:14)
[2022-02-15 07:25] LABS: Absolute Neutrophil Ct (ANC) 8.47 (1.4-6.9); Basophil (Absolute #) 0.06 (0-0.4); Eosinophil % 2.7 % (0.00-5.0); Eosinophil (Absolute #) 0.49 (0-0.5); Hematocrit 42.7 % (35-47); Hemoglobin 14.7 gm/dl (12.0-16.0); Lymphocyte (Absolute #) 7.74 (1.0-4.6); Lymphocytes % 42.2 % (24.0-44.0); Mean Cell Volume 83.9 fl (78-100); Mean Corpuscular Hemoglobin 28.9 pg (26-32); Mean Corpuscular Hgb Concent. 34.4 g/dl (32-36); Mean Platelet Volume 9.7 fl (7.5-11.0); Monocyte (Absolute #) 1.58 (0.0-1.3); Monocytes % 8.6 % (0.0-12.0); Neutrophil % 46.2 % (36.0-66.0); Platelet Count 353 K/mm3 (150-450); Red Blood Count 5.09 M/mm3 (4.1-5.4); Red Cell Distribution Width 13.6 % (11.5-14.0); White Blood Count 18.3 K/mm3 (4.0-10.5)
[2022-02-15 08:04] LABS: Eosinophil 4 % (0.00-3.0); Lymphocytes 36 % (24-44); Monocyte 9 % (0.0-12.0); Neutrophils 51 % (36.0-66.0); Total Cells Counted 100
[2022-02-15] MEDS ORDERED: TORAdol 30 mg Injection ONE (08:04)
[2022-02-15 08:05] LABS: Platelet Estimate NORMAL (NORMAL)
[2022-02-15] MEDS ORDERED: TORAdol 30 mg Injection IV ONE (08:05)
[2022-02-15 09:15] LABS: ALBUMIN 3.8 g/dL (3.5-5.0); ALKALINE PHOSPHATASE 64 U/L (38-126); ANION GAP 14.8 MEQ/L (5-15); BLOOD UREA NITROGEN 19 mg/dL (7-17); CHLORIDE 104 mmol/L (98-107); Calcium 9.3 mg/dL (8.4-10.2); Carbon Dioxide 23 mmol/L (22-30); Creatinine 1 0.93 mg/dL (0.52-1.04); EST GLOMERULAR FILTRATION RATE > 60.0 ML/MIN; Glucose 103 mg/dL (74-106); LIPASE 154 U/L (23-300); Potassium 3.4 mmol/L (3.5-5.1); SGOT/AST 26 U/L (14-36); SGPT/ALT 27 U/L (0-35); SODIUM 139 mmol/L (137-145); Total Protein 6.8 g/dL (6.3-8.2)
--- NOTE | 2022-02-15 09:27 | XRAY ---
Indication: Right lower quadrant pain. Elevated WBC. Multiple contiguous axial images obtained through the abdomen and pelvis without contrast. Comparison: January 09, 2022 Lung bases remain clear. Heart not enlarged. Noncontrasted stomach and bowel loops remain nonobstructed again with normal appendix. No bowel wall thickening or inflammatory changes. Previous 1-2 mm right renal calculus now seen at the level of the UVJ with mild hydronephrosis. No free fluid/air. Again fatty liver. Remaining liver, gallbladder, pancreas, spleen, adrenal glands, kidneys, ureters, bladder, uterus, and aorta are unremarkable for noncontrast exam. Osseous structures intact. Impression: 1. New right UVJ punctate calculus with mild hydronephrosis. 2. Again incidental fatty liver. 3. Remaining CT abdomen/pelvis without contrast exam is negative.
[2022-02-15 09:52] LABS: Bacteria FEW /HPF (NEGATIVE); Epithelial Cells PACKED /HPF (FEW); Mucus MANY /HPF (NEGATIVE); RBC 51-100 /HPF (0-2); WBC 26-50 /HPF (0-5)
[2022-02-15 09:54] LABS: Appearance CLOUDY (CLEAR); Bilirubin NEGATIVE (NEGATIVE); Glucose NEGATIVE (NEGATIVE); Ketones NEGATIVE (NEGATIVE); Nitrite NEGATIVE (NEGATIVE); Ph 5.5 (5-6); Protein,Urine Dip 30 (Negative); RBC LARGE Ery/ul (0-5); Specific Gravity >=1.030 (1.005-1.025); Urobilinogen 0.2 mg/dL (0-1)
[2022-02-15 09:55] LABS: Urine Cultured Indicated? YES
[2022-02-15 09:56] LABS: Dipstick done @ ? MAIN LAB
[2022-02-15] MEDS ORDERED: Flomax 0.4 MG PO STA (10:51)
[2022-02-15] MEDS ORDERED: Rocephin 1000 MG INJ IM ONE (10:51)
[2022-02-15] MEDS ORDERED: Rocephin 1000 MG INJ ONE (10:54)
[2022-02-15] MEDS ORDERED: XYLOCAINE 1% HCL 20 ML MDV ONE (10:54)
[2022-02-15] MEDS ORDERED: Flomax 0.4 MG ONE (10:54)
[2022-02-15 11:03] VITALS: BP 141/87; PULSE 75
[2022-02-15 11:07] VITALS: O2SAT 98
[2022-02-15] MEDS ORDERED: NORCO 5/325 MG PO ONE (11:10)
[2022-02-15] MEDS ORDERED: NORCO 5/325 MG ONE (11:11)
== END 2022-02-15 11:17 | disposition home or self-care (01) ==
LOC: ED 06:56
DX: N39.0 Urinary tract infection, site not specified (principal); N13.2 Hydronephrosis with renal and ureteral calculous obstruction; K76.0 Fatty (change of) liver, not elsewhere classified; R10.31 Right lower quadrant pain; D72.829 Elevated white blood cell count, unspecified; E87.6 Hypokalemia; R31.29 Other microscopic hematuria; R11.0 Nausea; Z87.442 Personal history of urinary calculi; K21.9 Gastro-esophageal reflux disease without esophagitis; Z72.0 Tobacco use
CPT/HCPCS: 36000; 36415; 74176; 80053; 81015; 81025; 83690; 84484; 84703; 85025; 87086; 93005; 96360; 96372; 96374; 96375; 99285; J0696; J1885; J2270; J2405; A9270-GY

== ENCOUNTER 2022-09-08 11:39 | Emergency (ER) | payer OTHER ==
--- NOTE | 2022-09-08 11:42 | ERPHSYRPT ---
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 She immediately had pain but continued to work. Later in the evening she started having some increased pain and this morning the pain is present even when not moving. She has no anterior chest pain. She has no shortness of breath. Patient can move her right shoulder but it hurts to do so. Patient has a history of asthma, gastroesophageal reflux disease, depression. She is a current daily smoker of cigarettes. Occurred: yesterday Method of Injury: twisted Quality: constant, aching Severity of Pain-Max: moderate Severity of Pain-Current: moderate Extremities Pain Location: shoulder: right Modifying Factors: Improves With: movement Associated Symptoms: none, No chest discomfort, No chest pain, No dyspnea, No short of breath Allergies/Adverse Reactions: ranitidine Allergy (Mild, Verified 02/15/22 07:06) ciprofloxacin [From Cipro] Allergy (Verified 02/15/22 07:06) famotidine [From Pepcid] Allergy (Verified 02/15/22 07:06) omeprazole Allergy (Verified 02/15/22 07:06) azithromycin Adverse Reaction (Intermediate, Verified 09/08/22 11:50) bradycardia and syncope Hx Tetanus, Diphtheria Vaccination/Date Given: Yes Hx Influenza Vaccination/Date Given: Yes Hx Pneumococcal Vaccination/Date Given: No Travel Risk - International Travel Have you traveled outside of the country in past 3 weeks: No - Coronavirus Screening Are you exhibiting any of the following symptoms?: No Close contact with a COVID-19 positive Pt in past 14-21 Days: No - Vaccine Status Have you recieved a Covid-19 vaccination: No - Review of Systems Constitutional: No Symptoms Eyes: No Symptoms Ears, Nose, & Throat: No Symptoms Respiratory: No Symptoms Cardiac: No Symptoms Abdominal/Gastrointestinal: No Symptoms Genitourinary Symptoms: No Symptoms Musculoskeletal: Injury (Shoulder) Skin: No Symptoms Neurological: No Symptoms Psychological: No Symptoms Endocrine: No Symptoms Hematologic/Lymphatic: No Symptoms Immunological/Allergic: No Symptoms All Other Systems: Reviewed and Negative - Past Medical History Pertinent Past Medical History: Yes Neurological History: No Pertinent History ENT History: No Pertinent History Cardiac History: Other Respiratory History: Asthma Endocrine Medical History: No Pertinent History Musculoskeletal History: No Pertinent History GI Medical History: GERD History: Other Psycho-Social History: Depression Female Reproductive Disorders: No Pertinent History Other Medical History: pt reports hormonal imbalance, states she does not menstruate, has seen a specialist and her hormones are at "menopause level", heart murmur, kidney stones - Past Surgical History Past Surgical History: Yes Neuro Surgical History: No Pertinent History Cardiac: No Pertinent History Respiratory: No Pertinent History Gastrointestinal: No Pertinent History Genitourinary: No Pertinent History Musculoskeletal: No Pertinent History Female Surgical History: No Pertinent History Other Surgical History: EGG,Colonoscopy, polynoidal cyst removed - Social History Smoking Status: Current every day smoker How long have you smoked: 10 yrs Exposure to second hand smoke: Yes Drug Use: none Patient Lives Alone: No - Nursing Vital Signs Nursing Vital Signs: Initial Vital Signs Temperature 97.5 F 09/08/22 11:45 Pulse Rate 102 H 09/08/22 11:45 Respiratory Rate 18 09/08/22 11:45 Blood Pressure 128/77 09/08/22 11:45 O2 Sat by Pulse Oximetry 98 09/08/22 11:45 Pain Scale Pain Intensity 5 - Physical Exam General Appearance: no apparent distress, alert, anxiety, obese Eyes, Ears, Nose, Throat Exam: normal ENT inspection, moist mucous membranes Neck Exam: normal inspection, non-tender, supple, full range of motion Cardiovascular/Respiratory Exam: chest non-tender, no respiratory distress Abdominal Exam: non-tender Back Exam: normal inspection, normal range of motion, No CVA tenderness, No vertebral tenderness Shoulder Exam: normal inspection, no evidence of injury, normal ROM, soft tissue tenderness, No deformity Elbow/Forearm Exam: normal inspection, non-tender, no evidence of injury, normal ROM, No deformity Wrist Exam: normal inspection, non-tender, no evidence of injury, normal ROM, No deformity Hand Exam: normal inspection, non-tender, no evidence of injury, normal ROM, No deformity Neuro/Tendon Exam: normal sensation, normal motor functions, normal tendon functions Mental Status Exam: alert, 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, cooperative Skin Exam: normal color, warm, dry SpO2 Interpretation: normal O2 Delivery: Room Air - Course Nursing assessment & vital signs reviewed: Yes Ordered Tests: Active Orders 24 hr Category Date Time Status Sling Application STAT Care 09/08/22 12:47 Ordered SHOULDER Stat Exams 09/08/22 12:08 Taken - Progress Progress: improved, pain not gone completely Progress Note: 09/08/22 12:50 X-ray right shoulder shows no acute fracture or dislocation. Counseled pt/family regarding: diagnosis, need for follow-up, rad results - Departure Departure Disposition: Home Clinical Impression: Right shoulder pain Condition: Stable Critical Care Time: No Referrals: SOLIS LANGSTON MD [Primary Care Provider] - Follow up/PCP as directed Additional Instructions: Wear sling for comfort. Take your medications as prescribed. Follow-up in the [facility] orthopedic clinic if pain persist beyond 48 hours. The clinic hours are from 8 AM to 10 AM Tuesday through Tuesday. It is a walk-in clinic. You do not need to have an appointment. Prescriptions: Oxycodone HCl/Acetaminophen [Percocet 5-325 mg Tablet] 1 each PO Q8H PRN PRN #6 tablet MDD 3 PRN Reason: Moderate To Severe Pain Prednisone 10 mg [Deltasone 10 mg] 10 mg PO TID #12 tablet
--- NOTE | 2022-09-08 12:50 | XRAY ---
Indication: Pain after shoveling. Comparison: None 3 the right shoulder obtained. No bony, articular, or soft tissue abnormalities.
[2022-09-08] MEDS ORDERED: Sterile H2O 10 ml IJ ONE (13:07)
[2022-09-08] MEDS ORDERED: Norflex 60 MG/2 ML ONE (13:07)
[2022-09-08] MEDS ORDERED: solu-MEDROL ONE (13:08)
[2022-09-08] MEDS ORDERED: OXYCODONE-ACETAMINOPHEN 10-325 ONE (13:08)
[2022-09-08 13:10] VITALS: BP 120/70; PULSE 100; O2SAT 99
[2022-09-08] MEDS: OXYCODONE-ACETAMINOPHEN 10-325 PO STA (13:10)
[2022-09-08] MEDS: solu-MEDROL 125 MG, Sterile H2O 10 ml 2 ML IM ONE ×2 (13:11)
[2022-09-08] MEDS: Norflex 60 MG/2 ML IM ONE (13:12)
== END 2022-09-08 13:24 | disposition home or self-care (01) ==
LOC: ED 11:39
DX: M25.511 Pain in right shoulder (principal); Z72.0 Tobacco use; Z79.891 Long term (current) use of opiate analgesic; Z79.52 Long term (current) use of systemic steroids; Z28.310 Unvaccinated for COVID-19
CPT/HCPCS: 73030; 96372; 99284; J2360; J2930; A9270-GY

== ENCOUNTER 2022-09-17 11:41 | Emergency (ER) | payer OTHER ==
[2022-09-17] MEDS ORDERED: TORAdol 30 mg Injection IM ONE (12:20)
[2022-09-17 12:23] LABS: Appearance CLEAR (CLEAR); Bilirubin NEGATIVE (NEGATIVE); Dipstick done @ ? MAIN LAB; Glucose NEGATIVE (NEGATIVE); Ketones NEGATIVE (NEGATIVE); Nitrite NEGATIVE (NEGATIVE); Ph 5.5 (5-6); Protein,Urine Dip NEGATIVE (Negative); RBC LARGE Ery/ul (0-5); Specific Gravity 1.025 (1.005-1.025); Urobilinogen 0.2 mg/dL (0-1)
[2022-09-17 12:24] LABS: Bacteria RARE /HPF (NEGATIVE); Epithelial Cells FEW /HPF (FEW); Mucus SLIGHT /HPF (NEGATIVE)
--- NOTE | 2022-09-17 12:25 | ERPHSYRPT ---
- History of Present Illness Historian: patient Exam Limitations: no limitations Patient Subjective Stated Complaint: pt here for right lower abd with radiation to flank area since last night, [place] Triage Nursing Assessment: pt alert, walked in, co buring with urination, face mask in place, resp easy, no cough, abd soft, skin w/d/p Physician History: 27 yo wf w R flank pain which radiates to her R inguinal area x 2days. Pain is 6/10, and nothing makes it better or worse. She has had nausea w minimal vomiting. Pt states that it feels like when she had kidney stones in the past. She has dysuria wo hematuria/frequency. Pt denies fever. Timing/Duration: other (2 days) Quality: sharpness, stabbing Abdominal Pain Onset Location: flank (R flank) Pain Radiation: groin (R groin) Severity of Pain-Max: severe Severity of Pain-Current: moderate Modifying Factors: Improves With: nothing Associated Symptoms: denies symptoms, nausea, vomiting Previous symptoms: same symptoms as today Allergies/Adverse Reactions: ranitidine Allergy (Mild, Verified 09/17/22 12:01) ciprofloxacin [From Cipro] Allergy (Verified 09/17/22 12:01) famotidine [From Pepcid] Allergy (Verified 09/17/22 12:01) omeprazole Allergy (Verified 09/17/22 12:01) azithromycin Adverse Reaction (Intermediate, Verified 09/17/22 12:01) bradycardia and syncope Hx Tetanus, Diphtheria Vaccination/Date Given: Yes Hx Influenza Vaccination/Date Given: No Hx Pneumococcal Vaccination/Date Given: No Immunizations Up to Date: Yes Travel Risk - International Travel Have you traveled outside of the country in past 3 weeks: No - Coronavirus Screening Are you exhibiting any of the following symptoms?: No Close contact with a COVID-19 positive Pt in past 14-21 Days: No - Vaccine Status Have you recieved a Covid-19 vaccination: No - Review of Systems Constitutional: No Symptoms Eyes: No Symptoms Ears, Nose, & Throat: No Symptoms Respiratory: No Symptoms Cardiac: No Symptoms Abdominal/Gastrointestinal: No Symptoms, Abdominal Pain (R flank pain) Genitourinary Symptoms: No Symptoms, Dysuria Musculoskeletal: No Symptoms Skin: No Symptoms Neurological: No Symptoms Psychological: No Symptoms Endocrine: No Symptoms Hematologic/Lymphatic: No Symptoms Immunological/Allergic: No Symptoms - Past Medical History Pertinent Past Medical History: Yes Neurological History: No Pertinent History ENT History: No Pertinent History Cardiac History: Other Respiratory History: Asthma Endocrine Medical History: No Pertinent History Musculoskeletal History: No Pertinent History GI Medical History: GERD History: Other Psycho-Social History: Depression Female Reproductive Disorders: No Pertinent History Other Medical History: pt reports hormonal imbalance, states she does not menstruate, has seen a specialist and her hormones are at "menopause level", heart murmur, kidney stones,pcos - Past Surgical History Past Surgical History: Yes Neuro Surgical History: No Pertinent History Cardiac: No Pertinent History Respiratory: No Pertinent History Gastrointestinal: No Pertinent History Genitourinary: No Pertinent History Musculoskeletal: No Pertinent History Female Surgical History: No Pertinent History Other Surgical History: EGG,Colonoscopy, polynoidal cyst removed - Social History Smoking Status: Current every day smoker How long have you smoked: 10 yrs Exposure to second hand smoke: Yes Drug Use: marijuana Patient Lives Alone: No - Female History Hx Last Menstrual Period: unsure Hx Now: No (unsure) - Nursing Vital Signs Nursing Vital Signs: Initial Vital Signs Temperature 98 F 09/17/22 11:55 Pulse Rate 78 09/17/22 11:55 Blood Pressure 138/86 09/17/22 11:55 O2 Sat by Pulse Oximetry 98 09/17/22 11:55 Pain Scale Pain Intensity 3 WNL - Physical Exam General Appearance: no apparent distress Eye Exam: PERRL/EOMI, eyes nml inspection Ears, Nose, Throat Exam: normal ENT inspection, TMs normal, pharynx normal, moist mucous membranes Neck Exam: normal inspection, non-tender, supple, full range of motion, No meningismus, No mass, No Brudzinski, No Kernig's Respiratory Exam: normal breath sounds, lungs clear, airway intact Cardiovascular Exam: regular rate/rhythm, normal heart sounds, normal peripheral pulses, capillary refill <2 sec, No murmur Gastrointestinal/Abdomen Exam: soft, normal bowel sounds, No tenderness Back Exam: normal inspection, normal range of motion, No CVA tenderness Extremity Exam: normal inspection, normal range of motion Neurologic Exam: alert, 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, cooperative, online project manager II-XII nml as tested, normal mood/affect, nml cerebellar function, nml station & gait, sensation nml Skin Exam: normal color, warm, dry Lymphatic Exam: No adenopathy SpO2 Interpretation: normal SpO2: 98 O2 Delivery: Room Air - Course Nursing assessment & vital signs reviewed: Yes - CT Exams Abdomen/Pelvis CT Interpretation: Discussed w/radiologist (No ureterolithiasis) Ordered Tests: Active Orders 24 hr Category Date Time Status ABDOMEN AND PELVIS W/0 CONTRAS [CT] Stat Exams 09/17/22 12:43 Completed CULTURE,URINE Stat Lab 09/17/22 12:01 Received HCG,QUALITATIVE URINE Stat Lab 09/17/22 12:33 Completed UA W/RFX CULTURE Stat Lab 09/17/22 12:01 Completed Medication Summary Discontinued Medications Generic Name Dose Route Start Last Admin Trade Name Freq PRN Reason Stop Dose Admin Ketorolac Tromethamine 30 mg 09/17/22 12:20 09/17/22 12:31 Ketorolac Tromethamine 30 Mg/Ml Inj IM 09/17/22 12:21 30 mg STAT ONE Administration Ketorolac Tromethamine Confirm 09/17/22 12:26 Ketorolac Tromethamine 30 Mg/Ml Inj Administered 09/17/22 12:27 Dose 30 mg .ROUTE .STK-MED ONE Lab/Rad Data: Laboratory Results 09/17/22 09/17/22 Range/Units 12:33 12:01 Urinalys Dipstick Clnc MAIN LAB Urine Color YELLOW (YELLOW) Urine Appearance CLEAR (CLEAR) Urine pH 5.5 (5-6) Ur Specific [place] 1.025 (1.005-1.025) POC Urine Protein Conf NEGATIVE (Negative) Urine Ketones NEGATIVE (NEGATIVE) Urine Nitrite NEGATIVE (NEGATIVE) Urine Bilirubin NEGATIVE (NEGATIVE) Urine Urobilinogen 0.2 (0-1) mg/dL Urine Leukocytes TRACE A (NEGATIVE) Urine WBC (Auto) 11-15 A (0-5) /HPF Urine RBC (Auto) 6-10 A (0-2) /HPF U Epithel Cells (Auto) FEW (FEW) /HPF Urine Bacteria (Auto) RARE (NEGATIVE) /HPF Urine RBC LARGE A (0-5) Raman/ul Urine Mucus (Auto) SLIGHT A (NEGATIVE) /HPF Ur Culture Indicated? YES Urine Glucose NEGATIVE (NEGATIVE) mg/dL Urine HCG, Qual NEGATIVE (Negative) - Progress Progress Note: 09/17/22 13:32 30mg IM Toradol w improvement 09/17/22 14:46 Pt refused pain meds before discharge and Rx for pain meds Counseled pt/family regarding: lab results, diagnosis, need for follow-up, rad results - Departure Departure Disposition: Home Clinical Impression: UTI (urinary tract infection) Condition: Stable Critical Care Time: No Referrals: SOLIS LANGSTON MD [Primary Care Provider] - Follow up/PCP as directed Instructions: Urinary Tract Infection, Adult (DC) Additional Instructions: Fluids Start Bactrim twice a day Follow up with your family MD or urologist Return to ER for increasing pain or temperature greater than 100.5 Prescriptions: Sulfamethoxazole/Trimethoprim [Bactrim Ds Tablet] 1 each PO BID 5 Days #10 tablet
[2022-09-17 12:26] LABS: Urine Cultured Indicated? YES
[2022-09-17] MEDS ORDERED: TORAdol 30 mg Injection ONE (12:26)
[2022-09-17 12:46] VITALS: BP 134/68
[2022-09-17 13:01] VITALS: PULSE 58
--- NOTE | 2022-09-17 13:30 | XRAY ---
Indication: Hematuria. Painful urination. Multiple contiguous images obtained through abdomen and pelvis without contrast using renal stone protocol. Comparison: February 15, 2022. Lung bases remain clear. Heart not enlarged. Right kidney demonstrates new 2 mm nonobstructing calculus. No other renal calculus or evidence for obstructive uropathy in either system. Noncontrasted stomach and bowel loops remain nonobstructed again with normal appendix. Stable mild fatty liver. No free fluid/air. Remaining liver, gallbladder, pancreas, spleen, adrenal glands, kidneys, ureters, bladder, uterus, and aorta are unremarkable for noncontrast exam. Osseous structures intact. Impression: 1. New nonobstructing right renal micro-calculus. 2. Stable fatty liver. 3. Remaining CT abdomen/pelvis without contrast exam is negative.
[2022-09-17 13:36] VITALS: O2SAT 98
== END 2022-09-17 13:41 | disposition home or self-care (01) ==
LOC: ED 11:41
DX: N39.0 Urinary tract infection, site not specified (principal); R10.9 Unspecified abdominal pain; R11.2 Nausea with vomiting, unspecified; R30.0 Dysuria; Z72.0 Tobacco use; Z28.310 Unvaccinated for COVID-19
CPT/HCPCS: 74176; 81015; 81025; 87086; 96372; 99283; J1885

== ENCOUNTER 2022-10-01 11:56 | Emergency (ER) | payer OTHER ==
--- NOTE | 2022-10-01 12:02 | ERPHSYRPT ---
- History of Present Illness Time Seen by Provider: 10/01/22 12:01 Historian: patient Exam Limitations: no limitations Physician History: This is an obese 27-year-old white female who presents with sudden onset of severe abdominal pain after taking a doxycycline medication this morning. Patient was being treated for bronchitis after she took Tamiflu for treatment of influenza a bronchitis. She did not feel that the Tamiflu helped her symptoms of cough and therefore she was given a prescription for the doxycycline. Patient does have a history of gastroesophageal reflux disease, polycystic ovary syndrome and asthma. Patient had abdominal pain and right flank pain on 09/17/2022 was diagnosed with a urinary tract infection. A CAT scan of the abdomen pelvis without contrast on that day was negative for any ureterolithiasis or other acute intra-abdominal or intrapelvic process. Timing/Duration: today, sudden Activities at Onset: none Abdominal Pain Onset Location: generalized abdomen Severity of Pain-Max: moderate Severity of Pain-Current: moderate Modifying Factors: Improves With: nothing Previous symptoms: no prior history Allergies/Adverse Reactions: ranitidine Allergy (Mild, Verified 10/01/22 12:18) ciprofloxacin [From Cipro] Allergy (Verified 10/01/22 12:18) famotidine [From Pepcid] Allergy (Verified 10/01/22 12:18) omeprazole Allergy (Verified 10/01/22 12:18) azithromycin Adverse Reaction (Intermediate, Verified 10/01/22 12:18) bradycardia and syncope Hx Tetanus, Diphtheria Vaccination/Date Given: Yes Hx Influenza Vaccination/Date Given: No Hx Pneumococcal Vaccination/Date Given: No Travel Risk - International Travel Have you traveled outside of the country in past 3 weeks: No - Coronavirus Screening Are you exhibiting any of the following symptoms?: No Close contact with a COVID-19 positive Pt in past 14-21 Days: No - Vaccine Status Have you recieved a Covid-19 vaccination: No - Review of Systems Constitutional: No Symptoms Eyes: No Symptoms Ears, Nose, & Throat: No Symptoms Respiratory: No Symptoms Cardiac: No Symptoms Abdominal/Gastrointestinal: Abdominal Pain Genitourinary Symptoms: No Symptoms Musculoskeletal: No Symptoms Skin: No Symptoms Neurological: No Symptoms Psychological: No Symptoms Endocrine: No Symptoms Hematologic/Lymphatic: No Symptoms Immunological/Allergic: No Symptoms All Other Systems: Reviewed and Negative - Past Medical History Pertinent Past Medical History: Yes Neurological History: No Pertinent History ENT History: No Pertinent History Cardiac History: Other Respiratory History: Asthma Endocrine Medical History: No Pertinent History Musculoskeletal History: No Pertinent History GI Medical History: GERD History: Other Psycho-Social History: Depression Female Reproductive Disorders: No Pertinent History Other Medical History: pt reports hormonal imbalance, states she does not menstruate, has seen a specialist and her hormones are at "menopause level", heart murmur, kidney stones,pcos - Past Surgical History Past Surgical History: Yes Neuro Surgical History: No Pertinent History Cardiac: No Pertinent History Respiratory: No Pertinent History Gastrointestinal: No Pertinent History Genitourinary: No Pertinent History Musculoskeletal: No Pertinent History Female Surgical History: No Pertinent History Other Surgical History: EGG,Colonoscopy, polynoidal cyst removed - Social History Smoking Status: Current every day smoker How long have you smoked: 10 yrs Exposure to second hand smoke: Yes Drug Use: marijuana Patient Lives Alone: No - Nursing Vital Signs Nursing Vital Signs: Initial Vital Signs Temperature 97.2 F 10/01/22 11:59 Pulse Rate 86 10/01/22 11:59 Respiratory Rate 20 10/01/22 11:59 Blood Pressure 148/91 10/01/22 11:59 O2 Sat by Pulse Oximetry 98 10/01/22 11:59 Pain Scale Pain Intensity 7 - Physical Exam General Appearance: mild distress, alert, anxiety, obese Eye Exam: PERRL/EOMI, eyes nml inspection Ears, Nose, Throat Exam: normal ENT inspection, moist mucous membranes Neck Exam: normal inspection, non-tender, supple, full range of motion Respiratory Exam: normal breath sounds, lungs clear, airway intact, No chest tenderness, No respiratory distress Cardiovascular Exam: regular rate/rhythm, normal heart sounds, normal peripheral pulses Gastrointestinal/Abdomen Exam: soft, normal bowel sounds, tenderness (Generalized), guarding (Mild to palpation) Pelvic Exam: not done Rectal Exam: not done Back Exam: normal inspection, normal range of motion, No CVA tenderness, No vertebral tenderness Extremity Exam: normal inspection, normal range of motion, pelvis stable Neurologic Exam: alert, 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, cooperative, merchandise flow manager II-XII nml as tested, normal mood/affect, nml cerebellar function, nml station & gait, sensation nml Skin Exam: normal color, warm, dry Lymphatic Exam: No adenopathy SpO2 Interpretation: normal O2 Delivery: Room Air - Course Nursing assessment & vital signs reviewed: Yes Ordered Tests: Active Orders 24 hr Category Date Time Status IV Insertion STAT Care 10/01/22 12:13 Active ABDOMEN AND PELVIS W/0 CONTRAS [CT] Stat Exams 10/01/22 12:13 Completed AMYLASE Stat Lab 10/01/22 12:22 Completed CBC W DIFF Stat Lab 10/01/22 12:22 Completed CMP Stat Lab 10/01/22 12:22 Completed HCG QUALITATIVE,SERUM Stat Lab 10/01/22 12:22 Completed LIPASE Stat Lab 10/01/22 12:22 Completed UA W/RFX CULTURE Stat Lab 10/01/22 12:22 Completed Medication Summary Discontinued Medications Generic Name Dose Route Start Last Admin Trade Name Sapna PRN Reason Stop Dose Admin Morphine Sulfate 4 mg 10/01/22 12:13 10/01/22 12:32 Morphine Sulfate 4 Mg/Ml Injection IV 10/01/22 12:14 4 mg STAT ONE Administration Morphine Sulfate Confirm 10/01/22 12:27 Morphine Sulfate 4 Mg/Ml Injection Administered 10/01/22 12:28 Dose 4 mg .ROUTE .STK-MED ONE Ondansetron HCl 4 mg 10/01/22 12:13 10/01/22 12:31 Ondansetron Hcl 4 Mg/2 Ml Vial IV 10/01/22 12:14 4 mg STAT ONE Administration Ondansetron HCl Confirm 10/01/22 12:27 Ondansetron Hcl 4 Mg/2 Ml Vial Administered 10/01/22 12:28 Dose 4 mg .ROUTE .STK-MED ONE Lab/Rad Data: Laboratory Result Diagrams 10/01/22 12:22 10/01/22 12:22 Laboratory Results 10/01/22 10/01/22 10/01/22 Range/Units 12:22 12:22 12:22 WBC (4.0-10.5) x10^3/uL RBC (4.1-5.4) x10^6/uL Hgb (12.0-16.0) g/dL Hct (35-47) % MCV (78-100) fL MCH (26-32) pg MCHC (32-36) g/dL RDW (11.5-14.0) % Plt Count (150-450) x10^3/uL MPV (7.5-11.0) fL Gran % (36.0-66.0) % Immature Gran % (Auto) (0.00-0.4) % Nucleat RBC Rel Count (0.00-0.1) % Eos # (Auto) (0-0.5) x10^3/uL Immature Gran # (Auto) (0.00-0.03) x10^3u/L Absolute Lymphs (auto) (1.0-4.6) x10^3/uL Absolute Monos (auto) (0.0-1.3) x10^3/uL Absolute Nucleated RBC (0.00-0.01) x10^3u/L Lymphocytes % (24.0-44.0) % Monocytes % (0.0-12.0) % Eosinophils % (0.00-5.0) % Basophils % (0.0-0.4) % Absolute Granulocytes (1.4-6.9) x10^3/uL Basophils # (0-0.4) x10^3/uL Sodium 135 L (137-145) mmol/L Potassium 4.6 (3.5-5.1) mmol/L Chloride 103 (98-107) mmol/L Carbon Dioxide 27 (22-30) mmol/L Anion Gap 10.0 (5-15) MEQ/L BUN 19 H (7-17) mg/dL Creatinine 0.77 (0.52-1.04) mg/dL Estimated GFR > 60.0 ML/MIN Glucose 90 (74-106) mg/dL Calcium 9.3 (8.4-10.2) mg/dL Total Bilirubin 0.70 (0.2-1.3) mg/dL AST 33 (14-36) U/L ALT 32 (0-35) U/L Alkaline Phosphatase 65 (38-126) U/L Serum Total Protein 8.2 (6.3-8.2) g/dL Albumin 4.3 (3.5-5.0) g/dL Amylase 76 (30-110) U/L Lipase 103 (23-300) U/L Serum , Qual NEGATIVE (Negative) Urinalys Dipstick Clnc MAIN LAB Urine Color YELLOW (YELLOW) Urine Appearance CLEAR (CLEAR) Urine pH 5.5 (5-6) Ur Specific [place] >=1.030 A (1.005-1.025) POC Urine Protein Conf NEGATIVE (Negative) Urine Ketones NEGATIVE (NEGATIVE) Urine Nitrite NEGATIVE (NEGATIVE) Urine Bilirubin NEGATIVE (NEGATIVE) Urine Urobilinogen 0.2 (0-1) mg/dL Urine Leukocytes NEGATIVE (NEGATIVE) Urine WBC (Auto) 3-5 A (0-5) /HPF Urine RBC (Auto) 0-2 (0-2) /HPF U Epithel Cells (Auto) RARE (FEW) /HPF Urine Bacteria (Auto) RARE (NEGATIVE) /HPF Urine RBC LARGE A (0-5) Raman/ul Urine Mucus (Auto) SLIGHT A (NEGATIVE) /HPF Ur Culture Indicated? NO Urine Glucose NEGATIVE (NEGATIVE) mg/dL 10/01/22 Range/Units 12:22 WBC 9.6 (4.0-10.5) x10^3/uL RBC 5.54 H (4.1-5.4) x10^6/uL Hgb 15.7 (12.0-16.0) g/dL Hct 46.7 (35-47) % MCV 84.3 (78-100) fL MCH 28.3 (26-32) pg MCHC 33.6 (32-36) g/dL RDW 13.0 (11.5-14.0) % Plt Count 305 (150-450) x10^3/uL MPV 9.8 (7.5-11.0) fL Gran % 52.3 (36.0-66.0) % Immature Gran % (Auto) 0.4 (0.00-0.4) % Nucleat RBC Rel Count 0.0 (0.00-0.1) % Eos # (Auto) 0.04 (0-0.5) x10^3/uL Immature Gran # (Auto) 0.04 H (0.00-0.03) x10^3u/L Absolute Lymphs (auto) 3.78 (1.0-4.6) x10^3/uL Absolute Monos (auto) 0.67 (0.0-1.3) x10^3/uL Absolute Nucleated RBC 0.00 (0.00-0.01) x10^3u/L Lymphocytes % 39.3 (24.0-44.0) % Monocytes % 7.0 (0.0-12.0) % Eosinophils % 0.4 (0.00-5.0) % Basophils % 0.6 (0.0-0.4) % Absolute Granulocytes 5.03 (1.4-6.9) x10^3/uL Basophils # 0.06 (0-0.4) x10^3/uL Sodium (137-145) mmol/L Potassium (3.5-5.1) mmol/L Chloride (98-107) mmol/L Carbon Dioxide (22-30) mmol/L Anion Gap (5-15) MEQ/L BUN (7-17) mg/dL Creatinine (0.52-1.04) mg/dL Estimated GFR ML/MIN Glucose (74-106) mg/dL Calcium (8.4-10.2) mg/dL Total Bilirubin (0.2-1.3) mg/dL AST (14-36) U/L ALT (0-35) U/L Alkaline Phosphatase (38-126) U/L Serum Total Protein (6.3-8.2) g/dL Albumin (3.5-5.0) g/dL Amylase (30-110) U/L Lipase (23-300) U/L Serum , Qual (Negative) Urinalys Dipstick Clnc Urine Color (YELLOW) Urine Appearance (CLEAR) Urine pH (5-6) Ur Specific [place] (1.005-1.025) POC Urine Protein Conf (Negative) Urine Ketones (NEGATIVE) Urine Nitrite (NEGATIVE) Urine Bilirubin (NEGATIVE) Urine Urobilinogen (0-1) mg/dL Urine Leukocytes (NEGATIVE) Urine WBC (Auto) (0-5) /HPF Urine RBC (Auto) (0-2) /HPF U Epithel Cells (Auto) (FEW) /HPF Urine Bacteria (Auto) (NEGATIVE) /HPF Urine RBC (0-5) Raman/ul Urine Mucus (Auto) (NEGATIVE) /HPF Ur Culture Indicated? Urine Glucose (NEGATIVE) mg/dL - Progress Progress: improved Progress Note: 10/01/22 14:56 CAT scan of the abdomen pelvis without contrast shows no acute intra-abdominal or intrapelvic process. There are no significant changes when compared to the CAT scan of the abdomen pelvis dated 09/17/2022 Counseled pt/family regarding: lab results, diagnosis, need for follow-up, rad results - Departure Departure Disposition: Home Clinical Impression: Abdominal pain Condition: Stable Critical Care Time: No Referrals: SOLIS LANGSTON MD [Primary Care Provider] - Follow up/PCP as directed Additional Instructions: Avoid fatty greasy spicy foods. Use Tylenol for pain control. Stop your doxycycline. Follow-up with your primary care physician for further evaluation management.
[2022-10-01] MEDS ORDERED: Zofran 4 MG/2 ML VIAL IV ONE (12:13)
[2022-10-01] MEDS ORDERED: MORPHINE SULFATE 4 MG INJ IV ONE (12:13)
[2022-10-01 12:18] VITALS: O2SAT 98
[2022-10-01] MEDS ORDERED: MORPHINE SULFATE 4 MG INJ ONE (12:27)
[2022-10-01] MEDS ORDERED: Zofran 4 MG/2 ML VIAL ONE (12:27)
[2022-10-01 12:29] LABS: Absolute Neutrophil Ct (ANC) 5.03 x10^3/uL (1.4-6.9); Basophil (Absolute #) 0.06 x10^3/uL (0-0.4); Eosinophil % 0.4 % (0.00-5.0); Eosinophil (Absolute #) 0.04 x10^3/uL (0-0.5); Hematocrit 46.7 % (35-47); Hemoglobin 15.7 g/dL (12.0-16.0); Lymphocyte (Absolute #) 3.78 x10^3/uL (1.0-4.6); Lymphocytes % 39.3 % (24.0-44.0); Mean Cell Volume 84.3 fL (78-100); Mean Corpuscular Hemoglobin 28.3 pg (26-32); Mean Corpuscular Hgb Concent. 33.6 g/dL (32-36); Mean Platelet Volume 9.8 fL (7.5-11.0); Monocyte (Absolute #) 0.67 x10^3/uL (0.0-1.3); Neutrophil % 52.3 % (36.0-66.0); Platelet Count 305 x10^3/uL (150-450); Red Blood Count 5.54 x10^6/uL (4.1-5.4); White Blood Count 9.6 x10^3/uL (4.0-10.5)
[2022-10-01 12:41] LABS: Bacteria RARE /HPF (NEGATIVE); Epithelial Cells RARE /HPF (FEW); Mucus SLIGHT /HPF (NEGATIVE); RBC 0-2 /HPF (0-2)
[2022-10-01 12:46] LABS: Appearance CLEAR (CLEAR); Bilirubin NEGATIVE (NEGATIVE); Glucose NEGATIVE (NEGATIVE); Ketones NEGATIVE (NEGATIVE); Ph 5.5 (5-6); Protein,Urine Dip NEGATIVE (Negative); RBC LARGE Ery/ul (0-5); Specific Gravity >=1.030 (1.005-1.025)
[2022-10-01 12:47] LABS: Dipstick done @ ? MAIN LAB; Nitrite NEGATIVE (NEGATIVE); Urobilinogen 0.2 mg/dL (0-1)
[2022-10-01 12:51] LABS: ALBUMIN 4.3 g/dL (3.5-5.0); ALKALINE PHOSPHATASE 65 U/L (38-126); AMYLASE 76 U/L (30-110); BLOOD UREA NITROGEN 19 mg/dL (7-17); CHLORIDE 103 mmol/L (98-107); Calcium 9.3 mg/dL (8.4-10.2); Carbon Dioxide 27 mmol/L (22-30); Creatinine 1 0.77 mg/dL (0.52-1.04); EST GLOMERULAR FILTRATION RATE > 60.0 ML/MIN; Glucose 90 mg/dL (74-106); LIPASE 103 U/L (23-300); SGOT/AST 33 U/L (14-36); SGPT/ALT 32 U/L (0-35); SODIUM 135 mmol/L (137-145); Total Protein 8.2 g/dL (6.3-8.2)
[2022-10-01 12:56] LABS: Potassium 4.6 mmol/L (3.5-5.1)
[2022-10-01 12:58] LABS: Urine Cultured Indicated? NO
[2022-10-01 13:11] VITALS: BP 147/95; PULSE 59
--- NOTE | 2022-10-01 14:52 | XRAY ---
Exam: CT of the abdomen and pelvis without IV contrast from 10/01/2022. CTDI: 31.28 mGy Comparison: CT of the abdomen and pelvis without IV contrast from 09/17/2022. Indication: 27-year-old female with stomach cramps, vomiting, tested positive for flu. Technique: Non-IV contrast axial images were obtained through the abdomen and pelvis. Reconstructed coronal and sagittal images were created and reviewed. No oral contrast was given. Findings: The heart size is normal. The lung bases remain clear. The liver is of unremarkable size and appears uniform. Assessment of the solid organs is limited without the use of IV contrast, but no definite hepatic mass or intrahepatic biliary duct distention is seen. The gallbladder is mildly distended and reveals no dense calcifications within it. The common bile duct does not appear to be distended. The spleen measures a maximum of 12.5 cm in cross section on axial image #22 which is towards the upper limits of normal. No focal splenic mass is seen. The pancreas and adrenal glands appear unremarkable. The kidneys are remarkable for a 2 mm nonobstructing stone within the upper pole of the right kidney representing no change. No other renal calculi, gross renal mass, or hydronephrosis is seen. The ureters appear of normal diameter and reveal no ureterolith. No urinary bladder stone is seen. The abdominal aorta appears of normal diameter without aneurysm. No abnormal retroperitoneal or mesenteric lymphadenopathy is seen. There is no free intraperitoneal air or ventral abdominal hernia. The patient is noted to be very obese. The bowel reveals no evidence of obstruction or definite bowel wall thickening. There may be some scattered diverticula within the colon. There is no evidence of diverticulitis. Some mild scattered stool is seen throughout the colon. The appendix is identified within the right lower quadrant and appears normal. The uterus is anteflexed and appears unremarkable. Both ovaries are identified and appear normal. Incidentally, there is an oval-shaped soft tissue structure just anterior to the right side of the upper sacrum measuring about 2.1 cm in AP dimension and 1.8 cm in width. See axial images #62 through #66. This is asymmetric with respect to the left side. I don't believe this represents a bowel loop. In retrospect, I believe this can be seen in prior CTs dating back to 01/09/2022, although it may be slightly larger on the current study as compared to 01/09/2022. It appears of similar size as compared to 09/17/2022. It measures +39.1 Hounsfield units indicating soft tissue. Differential diagnosis is extensive, but a neurogenic origin such as neurofibroma, schwannoma, or dural ectasia is probably more likely. Consider follow-up with a CT of the abdomen/pelvis in 6 months to a year. No other pelvic mass, abnormal pelvic lymphadenopathy, or free fluid is seen. The bones reveal no acute fracture or aggressive bone lesion. Impression: 1. I again identify a 2 mm nonobstructing stone within the upper pole of the right kidney representing no change from 09/17/2022. There is no evidence of acute obstructive uropathy. 2. The appendix appears normal. 3. I note a 2.1 cm x 1.8 oval-shaped soft tissue structure just anterior to the upper right side of the sacrum. For example, see axial images #64 and #65. This is unchanged from 09/17/2022. See above discussion. I believe this is an incidental finding. 4. No other acute process is seen within the abdomen or pelvis.
== END 2022-10-01 15:25 | disposition home or self-care (01) ==
LOC: ED 11:56
DX: R10.84 Generalized abdominal pain (principal); Z28.310 Unvaccinated for COVID-19; Z72.0 Tobacco use
CPT/HCPCS: 36000; 36415; 74176; 80053; 81015; 82150; 83690; 84703; 85025; 96374; 96375; 99284; J2270; J2405

== ENCOUNTER 2022-11-22 01:57 | Emergency (ER) | payer OTHER ==
[2022-11-22 02:12] VITALS: BP 150/108; PULSE 95; O2SAT 98
--- NOTE | 2022-11-22 02:15 | ERPHSYRPT ---
- History of Present Illness Time Seen by Provider: 11/22/22 02:01 Source: patient Exam Limitations: no limitations Patient Subjective Stated Complaint: pt states she was having pain both ears intermittently and today pain in throat and right ear that has become worse.Pt w as seen in [facility] two weeks ago and was positive for covid Triage Nursing Assessment: pt alert and oriented, dry cough , holding right ear states pain is 10/10 in r ear Physician History: Patient here with right ear pain x3 to 4 hours. Patient states it woke her up from her sleep. Patient states that she had COVID 2 weeks ago. Was seen by her PCP at that time. Patient went on to develop ear pain. No other falls, trauma. Feels somewhat better from COVID. No shortness of breath, chest pain. Patient states that she has chronic right ear issues secondary to earwax buildup. Patient does not see an ear nose and throat doctor for this. She has not followed up anyone for the earwax buildup. Patient also complains of some sore throat Allergies/Adverse Reactions: ranitidine Allergy (Mild, Verified 10/01/22 12:18) ciprofloxacin [From Cipro] Allergy (Verified 10/01/22 12:18) famotidine [From Pepcid] Allergy (Verified 10/01/22 12:18) omeprazole Allergy (Verified 10/01/22 12:18) azithromycin Adverse Reaction (Intermediate, Verified 10/01/22 12:18) bradycardia and syncope Hx Tetanus, Diphtheria Vaccination/Date Given: Yes Hx Influenza Vaccination/Date Given: No Hx Pneumococcal Vaccination/Date Given: No Travel Risk - International Travel Have you traveled outside of the country in past 3 weeks: No - Coronavirus Screening Are you exhibiting any of the following symptoms?: Yes Symptoms: Fever Close contact with a COVID-19 positive Pt in past 14-21 Days: No - Vaccine Status Have you recieved a Covid-19 vaccination: No - Review of Systems Constitutional: No Fever, No Chills Eyes: No Symptoms Ears, Nose, & Throat: Ear Pain, Other (Sore throat) Respiratory: No Cough, No Dyspnea Cardiac: No Chest Pain, No Edema, No Syncope Abdominal/Gastrointestinal: No Abdominal Pain, No Nausea, No Vomiting, No Diarrhea Genitourinary Symptoms: No Dysuria Musculoskeletal: No Back Pain, No Neck Pain Skin: No Rash Neurological: No Dizziness, No Focal Weakness, No Sensory Changes Psychological: No Symptoms Endocrine: No Symptoms All Other Systems: Reviewed and Negative - Past Medical History Pertinent Past Medical History: Yes Neurological History: No Pertinent History ENT History: No Pertinent History Cardiac History: Other Respiratory History: Asthma Endocrine Medical History: No Pertinent History Musculoskeletal History: No Pertinent History GI Medical History: GERD History: Other Psycho-Social History: Depression Female Reproductive Disorders: No Pertinent History Other Medical History: pt reports hormonal imbalance, states she does not menstruate, has seen a specialist and her hormones are at "menopause level", heart murmur, kidney stones,pcos - Past Surgical History Past Surgical History: Yes Neuro Surgical History: No Pertinent History Cardiac: No Pertinent History Respiratory: No Pertinent History Gastrointestinal: No Pertinent History Genitourinary: No Pertinent History Musculoskeletal: No Pertinent History Female Surgical History: No Pertinent History Other Surgical History: EGG,Colonoscopy, polynoidal cyst removed - Social History Smoking Status: Current every day smoker How long have you smoked: 10 yrs Exposure to second hand smoke: Yes Drug Use: marijuana Patient Lives Alone: No - Female History Hx Last Menstrual Period: menopause at 17 Hx Now: No - Nursing Vital Signs Nursing Vital Signs: Initial Vital Signs Temperature 97.4 F 11/22/22 02:00 Pulse Rate 95 H 11/22/22 02:00 Respiratory Rate 18 11/22/22 02:00 Blood Pressure 150/108 11/22/22 02:00 O2 Sat by Pulse Oximetry 98 11/22/22 02:00 Pain Scale Pain Intensity 10 - Physical Exam General Appearance: no apparent distress, alert Eye Exam: PERRL/EOMI, eyes nml inspection Ears, Nose, Throat Exam: normal ENT inspection, TMs normal, moist mucous membranes, other (Some throat redness, no signs of peritonsillar abscess. Left ear is normal. Right ear has lots of waxy buildup.) Neck Exam: normal inspection, non-tender, supple, full range of motion Respiratory Exam: normal breath sounds, lungs clear, No respiratory distress Cardiovascular Exam: regular rate/rhythm, normal heart sounds, normal peripheral pulses Gastrointestinal/Abdomen Exam: soft, normal bowel sounds, No tenderness, No mass Back Exam: normal inspection, normal range of motion, No CVA tenderness, No vertebral tenderness Extremity Exam: normal inspection, normal range of motion, pelvis stable Neurologic Exam: alert, 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, cooperative, normal mood/affect, nml cerebellar function, nml station & gait, sensation nml, No motor deficits Skin Exam: normal color, warm, dry, No rash Lymphatic Exam: No adenopathy SpO2: 98 - Course Nursing assessment & vital signs reviewed: Yes - Progress Progress: unchanged Progress Note: 11/22/22 02:20 Patient is here with right ear pain. Lots of waxy buildup. Most likely needs to see ENT for follow-up. We did attempt to discuss this with the patient patient overall is reluctant to follow-up. Patient ultimately will be prescribed antibiotics. We will have her follow-up with her PCP. She may return here sooner for new or changing symptoms. - Departure Departure Disposition: Home Clinical Impression: Ear pain, right Condition: Stable Critical Care Time: No Referrals: SOLIS LANGSTON MD [Primary Care Provider] - Follow up/PCP as directed Instructions: Ear Infection ED Prescriptions: Amoxicillin 500 mg Cap [Amoxil 500 mg] 500 mg PO BID #20 cap
== END 2022-11-22 02:25 | disposition home or self-care (01) ==
LOC: ED 01:57
DX: H92.01 Otalgia, right ear (principal); J02.9 Acute pharyngitis, unspecified; Z86.16 Personal history of COVID-19; Z28.310 Unvaccinated for COVID-19; Z72.0 Tobacco use
CPT/HCPCS: 99281

== ENCOUNTER 2023-01-16 14:31 | Emergency (ER) | payer OTHER ==
[2023-01-16] MEDS ORDERED: Sodium Chloride 0.9% 1000 ML 1,000 ML IV STA (15:01)
[2023-01-16] MEDS ORDERED: Zofran 4 MG/2 ML VIAL IV ONE (15:01)
--- NOTE | 2023-01-16 15:05 | ERPHSYRPT ---
- History of Present Illness Historian: patient Exam Limitations: no limitations Patient Subjective Stated Complaint: pt here for loose stools and vomiting today Triage Nursing Assessment: pt alert, resp easy, face mask in place, skin w/d/p, abd soft Physician History: 27 yo wf w N/V/D starting at 8:30AM today. Pt denies abdominal pain/hemateme sis/hematochezia/fever/dysuria/hematuria/chest pain/dyspnea. is also denied. Timing/Duration: today (8:30AM) Activities at Onset: sleep Quality: other (No pain) Pain Radiation: no radiation Severity of Pain-Max: none Severity of Pain-Current: none Modifying Factors: Improves With: nothing, vomiting Associated Symptoms: denies symptoms Previous symptoms: no prior history Allergies/Adverse Reactions: ranitidine Allergy (Mild, Verified 01/16/23 14:49) ciprofloxacin [From Cipro] Allergy (Verified 01/16/23 14:49) doxycycline Allergy (Verified 01/16/23 14:50) famotidine [From Pepcid] Allergy (Verified 01/16/23 14:49) omeprazole Allergy (Verified 01/16/23 14:49) azithromycin Adverse Reaction (Intermediate, Verified 01/16/23 14:49) bradycardia and syncope Hx Tetanus, Diphtheria Vaccination/Date Given: Yes Hx Influenza Vaccination/Date Given: Yes Hx Pneumococcal Vaccination/Date Given: No Immunizations Up to Date: Yes Travel Risk - International Travel Have you traveled outside of the country in past 3 weeks: No - Coronavirus Screening Are you exhibiting any of the following symptoms?: No Close contact with a COVID-19 positive Pt in past 14-21 Days: No - Vaccine Status Have you recieved a Covid-19 vaccination: No - Review of Systems Constitutional: No Symptoms Eyes: No Symptoms Ears, Nose, & Throat: No Symptoms Respiratory: No Symptoms Cardiac: No Symptoms Abdominal/Gastrointestinal: No Symptoms, Nausea, Vomiting, Diarrhea Genitourinary Symptoms: No Symptoms Musculoskeletal: No Symptoms Skin: No Symptoms Neurological: No Symptoms Psychological: No Symptoms Endocrine: No Symptoms Hematologic/Lymphatic: No Symptoms Immunological/Allergic: No Symptoms - Past Medical History Pertinent Past Medical History: Yes Neurological History: No Pertinent History ENT History: No Pertinent History Cardiac History: Other Respiratory History: Asthma Endocrine Medical History: No Pertinent History Musculoskeletal History: No Pertinent History GI Medical History: GERD History: Other Psycho-Social History: Depression Female Reproductive Disorders: No Pertinent History Other Medical History: pt reports hormonal imbalance, states she does not menstruate, has seen a specialist and her hormones are at "menopause level", heart murmur, kidney stones,pcos - Past Surgical History Past Surgical History: Yes Neuro Surgical History: No Pertinent History Cardiac: No Pertinent History Respiratory: No Pertinent History Gastrointestinal: No Pertinent History Genitourinary: No Pertinent History Musculoskeletal: No Pertinent History Female Surgical History: No Pertinent History Other Surgical History: EGG,Colonoscopy, polynoidal cyst removed - Social History Smoking Status: Current every day smoker How long have you smoked: 10 yrs Exposure to second hand smoke: Yes Drug Use: marijuana Patient Lives Alone: No - Female History Hx Last Menstrual Period: post Hx Now: No - Nursing Vital Signs Nursing Vital Signs: Initial Vital Signs Temperature 97.5 F 01/16/23 14:49 Pulse Rate 88 01/16/23 14:49 Respiratory Rate 18 01/16/23 14:49 Blood Pressure 117/73 01/16/23 14:49 O2 Sat by Pulse Oximetry 98 01/16/23 14:49 Pain Scale Pain Intensity 0 WNL - Physical Exam General Appearance: no apparent distress Eye Exam: PERRL/EOMI, eyes nml inspection Ears, Nose, Throat Exam: normal ENT inspection, pharynx normal, moist mucous membranes, TM abnormal (R), TM abnormal (L) (L TM occluded by cerumen) Neck Exam: normal inspection, non-tender, supple, full range of motion, No meningismus, No mass, No Brudzinski, No Kernig's, No carotid bruit Respiratory Exam: normal breath sounds, lungs clear, airway intact, No chest tenderness, No respiratory distress Cardiovascular Exam: regular rate/rhythm, normal heart sounds, normal peripheral pulses, capillary refill <2 sec, No murmur Gastrointestinal/Abdomen Exam: soft, normal bowel sounds, No tenderness Back Exam: normal inspection, normal range of motion, No CVA tenderness, No vertebral tenderness Extremity Exam: normal inspection, normal range of motion Neurologic Exam: alert, 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, cooperative, functional tester II-XII nml as tested, normal mood/affect, nml cerebellar function, nml station & gait, sensation nml, No motor deficits, No sensory deficit Skin Exam: normal color, warm, dry, No rash Lymphatic Exam: No adenopathy SpO2 Interpretation: normal SpO2: 98 O2 Delivery: Room Air - Course Nursing assessment & vital signs reviewed: Yes - CT Exams Abdomen/Pelvis CT Interpretation: Tele-radiologist Report (NAD) Ordered Tests: Active Orders 24 hr Category Date Time Status IV Insertion STAT Care 01/16/23 15:01 Completed ABDOMEN AND PELVIS W/0 CONTRAS [CT] Stat Exams 01/16/23 16:38 Taken AMYLASE Stat Lab 01/16/23 15:15 Completed CBC W DIFF Stat Lab 01/16/23 15:15 Completed CMP Stat Lab 01/16/23 15:15 Completed HCG QUALITATIVE,SERUM Stat Lab 01/16/23 15:15 Completed LIPASE Stat Lab 01/16/23 15:15 Completed Medication Summary Discontinued Medications Generic Name Dose Route Start Last Admin Trade Name Freq PRN Reason Stop Dose Admin Sodium Chloride 1,000 mls @ 999 mls/hr 01/16/23 15:01 01/16/23 16:27 Sodium Chloride 0.9% 1000 Ml IV 01/16/23 16:01 Infused .Q1H1M STA Infusion Sodium Chloride Confirm 01/16/23 15:24 Sodium Chloride 0.9% 1000 Ml Administered 01/16/23 15:25 Dose 1,000 mls @ ud .ROUTE .STK-MED ONE Ondansetron HCl 4 mg 01/16/23 15:01 01/16/23 15:26 Ondansetron Hcl 4 Mg/2 Ml Vial IV 01/16/23 15:02 4 mg STAT ONE Administration Ondansetron HCl Confirm 01/16/23 15:24 Ondansetron Hcl 4 Mg/2 Ml Vial Administered 01/16/23 15:25 Dose 4 mg .ROUTE .STK-MED ONE Lab/Rad Data: Laboratory Result Diagrams 01/16/23 15:15 01/16/23 15:15 Laboratory Results 01/16/23 01/16/23 01/16/23 Range/Units Unknown 15:15 15:15 WBC (4.0-10.5) x10^3/uL RBC (4.1-5.4) x10^6/uL Hgb (12.0-16.0) g/dL Hct (35-47) % MCV (78-100) fL MCH (26-32) pg MCHC (32-36) g/dL RDW (11.5-14.0) % Plt Count (150-450) x10^3/uL MPV (7.5-11.0) fL Gran % (36.0-66.0) % Immature Gran % (Auto) (0.00-0.4) % Nucleat RBC Rel Count (0.00-0.1) % Eos # (Auto) (0-0.5) x10^3/uL Immature Gran # (Auto) (0.00-0.03) x10^3u/L Absolute Lymphs (auto) (1.0-4.6) x10^3/uL Absolute Monos (auto) (0.0-1.3) x10^3/uL Absolute Nucleated RBC (0.00-0.01) x10^3u/L Lymphocytes % (24.0-44.0) % Monocytes % (0.0-12.0) % Eosinophils % (0.00-5.0) % Basophils % (0.0-0.4) % Absolute Granulocytes (1.4-6.9) x10^3/uL Basophils # (0-0.4) x10^3/uL Sodium 141 (137-145) mmol/L Potassium 4.7 (3.5-5.1) mmol/L Chloride 108 H (98-107) mmol/L Carbon Dioxide 28 (22-30) mmol/L Anion Gap 10.4 (5-15) MEQ/L BUN 18 H (7-17) mg/dL Creatinine 0.83 (0.52-1.04) mg/dL Estimated GFR > 60.0 ML/MIN Glucose 101 (74-106) mg/dL Calcium 9.0 (8.4-10.2) mg/dL Total Bilirubin 0.50 (0.2-1.3) mg/dL AST 25 (14-36) U/L ALT 29 (0-35) U/L Alkaline Phosphatase 82 (38-126) U/L Serum Total Protein 7.8 (6.3-8.2) g/dL Albumin 4.2 (3.5-5.0) g/dL Amylase 69 (30-110) U/L Lipase 64 (23-300) U/L Serum , Qual NEGATIVE (Negative) Influenza Type A Ag NEGATIVE (NEGATIVE) Influenza Type B Ag NEGATIVE (NEGATIVE) RSV (PCR) NEGATIVE (NEGATIVE) SARS-CoV-2 (PCR) NEGATIVE (NEGATIVE) 01/16/23 Range/Units 15:15 WBC 20.0 H (4.0-10.5) x10^3/uL RBC 5.63 H (4.1-5.4) x10^6/uL Hgb 16.1 H (12.0-16.0) g/dL Hct 49.1 H (35-47) % MCV 87.2 (78-100) fL MCH 28.6 (26-32) pg MCHC 32.8 (32-36) g/dL RDW 12.7 (11.5-14.0) % Plt Count 328 (150-450) x10^3/uL MPV 9.8 (7.5-11.0) fL Gran % 88.1 H (36.0-66.0) % Immature Gran % (Auto) 0.6 H (0.00-0.4) % Nucleat RBC Rel Count 0.0 (0.00-0.1) % Eos # (Auto) 0.27 (0-0.5) x10^3/uL Immature Gran # (Auto) 0.13 H (0.00-0.03) x10^3u/L Absolute Lymphs (auto) 1.23 (1.0-4.6) x10^3/uL Absolute Monos (auto) 0.72 (0.0-1.3) x10^3/uL Absolute Nucleated RBC 0.00 (0.00-0.01) x10^3u/L Lymphocytes % 6.1 L (24.0-44.0) % Monocytes % 3.6 (0.0-12.0) % Eosinophils % 1.3 (0.00-5.0) % Basophils % 0.3 (0.0-0.4) % Absolute Granulocytes 17.61 H (1.4-6.9) x10^3/uL Basophils # 0.06 (0-0.4) x10^3/uL Sodium (137-145) mmol/L Potassium (3.5-5.1) mmol/L Chloride (98-107) mmol/L Carbon Dioxide (22-30) mmol/L Anion Gap (5-15) MEQ/L BUN (7-17) mg/dL Creatinine (0.52-1.04) mg/dL Estimated GFR ML/MIN Glucose (74-106) mg/dL Calcium (8.4-10.2) mg/dL Total Bilirubin (0.2-1.3) mg/dL AST (14-36) U/L ALT (0-35) U/L Alkaline Phosphatase (38-126) U/L Serum Total Protein (6.3-8.2) g/dL Albumin (3.5-5.0) g/dL Amylase (30-110) U/L Lipase (23-300) U/L Serum , Qual (Negative) Influenza Type A Ag (NEGATIVE) Influenza Type B Ag (NEGATIVE) RSV (PCR) (NEGATIVE) SARS-CoV-2 (PCR) (NEGATIVE) - Progress Progress: improved Progress Note: 01/16/23 19:27 Nursing note and vital signs reviewed No food or housing insecurities noted Additional history per nursing Lab and CT results reviewed and shared w pt/ 1L NS bolus/4mg IV Zofran w improvement Pt able to hold down fluids before discharge Abdomen soft and NTTP on serial exams Counseled pt/family regarding: lab results, diagnosis, need for follow-up, rad results - Departure Departure Disposition: Home Clinical Impression: Gastroenteritis Condition: Stable Critical Care Time: No Referrals: SOLIS LANGSTON MD [Primary Care Provider] - Follow up/PCP as directed Instructions: Diarrhea and Travelers' Diarrhea, Adult (DC), Nausea and Vomiting, Adult (DC) Additional Instructions: Fluids Zofran for nausea/vomiting Return to ER for increasing abdominal pain, temperature greater than 100.4, or inability to hold down fluids Prescriptions: Ondansetron ODT 4 MG [Zofran Odt 4 mg] 4 mg PO Q6H PRN PRN #10 tablet PRN Reason: Nausea
[2023-01-16] MEDS ORDERED: Sodium Chloride 0.9% 1000 ML 1,000 ML ONE (15:24)
[2023-01-16] MEDS ORDERED: Zofran 4 MG/2 ML VIAL ONE (15:24)
[2023-01-16 15:28] LABS: Absolute Neutrophil Ct (ANC) 17.61 x10^3/uL (1.4-6.9); BASOPHIL % 0.3 % (0.0-0.4); Basophil (Absolute #) 0.06 x10^3/uL (0-0.4); Eosinophil % 1.3 % (0.00-5.0); Eosinophil (Absolute #) 0.27 x10^3/uL (0-0.5); Hematocrit 49.1 % (35-47); Hemoglobin 16.1 g/dL (12.0-16.0); IMMATURE GRAN # 0.13 x10^3u/L (0.00-0.03); IMMATURE GRAN % 0.6 % (0.00-0.4); Lymphocyte (Absolute #) 1.23 x10^3/uL (1.0-4.6); Lymphocytes % 6.1 % (24.0-44.0); Mean Cell Volume 87.2 fL (78-100); Mean Corpuscular Hemoglobin 28.6 pg (26-32); Mean Corpuscular Hgb Concent. 32.8 g/dL (32-36); Mean Platelet Volume 9.8 fL (7.5-11.0); Monocyte (Absolute #) 0.72 x10^3/uL (0.0-1.3); Monocytes % 3.6 % (0.0-12.0); Neutrophil % 88.1 % (36.0-66.0); Platelet Count 328 x10^3/uL (150-450); Red Blood Count 5.63 x10^6/uL (4.1-5.4); Red Cell Distribution Width 12.7 % (11.5-14.0)
[2023-01-16 15:35] LABS: ALBUMIN 4.2 g/dL (3.5-5.0); ALKALINE PHOSPHATASE 82 U/L (38-126); AMYLASE 69 U/L (30-110); ANION GAP 10.4 MEQ/L (5-15); BLOOD UREA NITROGEN 18 mg/dL (7-17); CHLORIDE 108 mmol/L (98-107); Carbon Dioxide 28 mmol/L (22-30); Creatinine 1 0.83 mg/dL (0.52-1.04); EST GLOMERULAR FILTRATION RATE > 60.0 ML/MIN; Glucose 101 mg/dL (74-106); LIPASE 64 U/L (23-300); Potassium 4.7 mmol/L (3.5-5.1); SGOT/AST 25 U/L (14-36); SGPT/ALT 29 U/L (0-35); SODIUM 141 mmol/L (137-145); Total Protein 7.8 g/dL (6.3-8.2)
[2023-01-16 16:02] LABS: INFLUENZA A NEGATIVE (NEGATIVE); INFLUENZA B NEGATIVE (NEGATIVE); RESPIRATORY SYNCTIAL VIRUS NEGATIVE (NEGATIVE); SARS-CoV-2 Xpert Express NEGATIVE (NEGATIVE)
[2023-01-16 17:12] VITALS: BP 118/58; PULSE 68
[2023-01-16 17:25] VITALS: O2SAT 98
--- NOTE | 2023-01-16 19:39 | XRAY ---
Indication: Nausea, vomiting, and diarrhea. Multiple contiguous axial images obtained through the abdomen and pelvis without contrast. Comparison: October 01, 2022 Lung bases remain clear. Heart not enlarged. Noncontrasted stomach and bowel loops nonobstructed again with normal appendix. Again minimal descending and sigmoid diverticulosis without diverticulitis. No free fluid/air. Stable amount of subcutaneous right renal punctate calculus. Remaining liver, gallbladder, pancreas, spleen, adrenal glands, kidneys, ureters, bladder, uterus, and aorta are unremarkable for noncontrast exam. Osseous structures intact. Impression: 1. Again minimal colonic diverticulosis and nonobstructed right renal punctate calculus. 2. Remaining CT abdomen/pelvis without contrast exam continues to be negative. Comment: Preliminary interpretation made by [facility]. No critical discrepancy.
== END 2023-01-16 17:58 | disposition home or self-care (01) ==
LOC: ED 14:31
DX: K52.9 Noninfective gastroenteritis and colitis, unspecified (principal); R11.2 Nausea with vomiting, unspecified; Z28.310 Unvaccinated for COVID-19; Z72.0 Tobacco use
CPT/HCPCS: 0241U; 36000; 36415; 74176; 80053; 82150; 83690; 84703; 85025; 96360; 96374; 99284; J2405

== ENCOUNTER 2023-04-28 02:04 | Emergency (ER) | payer OTHER ==
[2023-04-28 02:43] LABS: Absolute Neutrophil Ct (ANC) 5.58 x10^3/uL (1.4-6.9); BASOPHIL % 0.6 % (0.0-0.4); Basophil (Absolute #) 0.07 x10^3/uL (0-0.4); Eosinophil % 4.6 % (0.00-5.0); Eosinophil (Absolute #) 0.57 x10^3/uL (0-0.5); Hematocrit 44.7 % (35-47); Hemoglobin 14.7 g/dL (12.0-16.0); IMMATURE GRAN # 0.08 x10^3u/L (0.00-0.03); IMMATURE GRAN % 0.7 % (0.00-0.4); Lymphocyte (Absolute #) 5.28 x10^3/uL (1.0-4.6); Mean Cell Volume 84.2 fL (78-100); Mean Corpuscular Hemoglobin 27.7 pg (26-32); Mean Corpuscular Hgb Concent. 32.9 g/dL (32-36); Monocyte (Absolute #) 0.71 x10^3/uL (0.0-1.3); Monocytes % 5.8 % (0.0-12.0); Neutrophil % 45.3 % (36.0-66.0); Platelet Count 310 x10^3/uL (150-450); Red Blood Count 5.31 x10^6/uL (4.1-5.4); Red Cell Distribution Width 13.1 % (11.5-14.0); White Blood Count 12.3 x10^3/uL (4.0-10.5)
[2023-04-28] MEDS ORDERED: Sodium Chloride 0.9% 1000 ML 1,000 ML ONE (02:54)
[2023-04-28] MEDS ORDERED: TORAdol 30 mg Injection ONE (02:55)
[2023-04-28] MEDS ORDERED: Zofran 4 MG/2 ML VIAL ONE (02:55)
[2023-04-28 02:56] LABS: HCG SERUM TEST NEGATIVE (NEGATIVE)
[2023-04-28] MEDS: Zofran 4 MG/2 ML VIAL IV ONE (02:56)
[2023-04-28] MEDS: Sodium Chloride 0.9% 1000 ML 1,000 ML IV STA (02:56)
[2023-04-28] MEDS: TORAdol 30 mg Injection IV ONE (02:56)
[2023-04-28 02:57] LABS: ALBUMIN 4.1 g/dL (3.5-5.0); ALKALINE PHOSPHATASE 67 U/L (38-126); ANION GAP 12.8 MEQ/L (5-15); BLOOD UREA NITROGEN 22 mg/dL (7-17); CHLORIDE 103 mmol/L (98-107); Calcium 9.2 mg/dL (8.4-10.2); Carbon Dioxide 27 mmol/L (22-30); Creatinine 1 0.92 mg/dL (0.52-1.04); EST GLOMERULAR FILTRATION RATE > 60.0 ML/MIN; Glucose 110 mg/dL (74-106); Potassium 4.3 mmol/L (3.5-5.1); SGOT/AST 32 U/L (14-36); SGPT/ALT 32 U/L (0-35); SODIUM 139 mmol/L (137-145); Total Protein 7.6 g/dL (6.3-8.2)
[2023-04-28 03:20] LABS: Slide Review 1 YES
--- NOTE | 2023-04-28 04:57 | ERPHSYRPT ---
- History of Present Illness Time Seen by Provider: 04/28/23 02:30 Historian: patient Exam Limitations: no limitations Patient Subjective Stated Complaint: rt sided abd pain around to groin and some in flank Triage Nursing Assessment: pt ambulated into ER without diff, pt alert and oriented x4. Pt's spouse at bedside. Pt c/o rt sided abd pain that moves into the rt groin area, has some occasional rt flank pain. Pt states, "I think it's another kidney stone." Abd lg, obese with active bs x4 quad, tender to RLQ and RUQ. LBM 04/28/23. Physician History: Patient is a 27-year-old female presents to our ED for evaluation of right flank pain, mild nausea. Pain started approximately 1 AM. Pain described as an ache that is localized to the right flank. Pain is constant however pain tends to radiate from her flank down to her right groin area. No associated trauma or fever. Patient reports that she has a history of kidney stone. Patient feels her current symptoms are similar to her previous. Patient believes she has a kidney stone currently. No associated trauma. No fever. No nausea vomiting or diaphoresis. Symptoms are moderate in intensity. No specific worsening improving factors. Significant other at bedside. They voiced no other complaints concerns at this time. Portions of this note were created with voice recognition technology. There may be grammatical, spelling, punctuation or sound alike errors Timing/Duration: today Activities at Onset: none Quality: aching Abdominal Pain Onset Location: flank (Pain started out the right flank now radiates to right lower quadrant) Pain Radiation: RLQ Severity of Pain-Max: moderate Severity of Pain-Current: mild Modifying Factors: Improves With: nothing Associated Symptoms: denies symptoms Previous symptoms: same symptoms as today Allergies/Adverse Reactions: ranitidine Allergy (Mild, Verified 04/28/23 02:28) ciprofloxacin [From Cipro] Allergy (Verified 04/28/23 02:28) doxycycline Allergy (Verified 04/28/23 02:28) famotidine [From Pepcid] Allergy (Verified 04/28/23 02:28) omeprazole Allergy (Verified 04/28/23 02:28) azithromycin Adverse Reaction (Intermediate, Verified 04/28/23 02:28) bradycardia and syncope Hx Tetanus, Diphtheria Vaccination/Date Given: Yes Hx Influenza Vaccination/Date Given: No Hx Pneumococcal Vaccination/Date Given: No Travel Risk - International Travel Have you traveled outside of the country in past 3 weeks: No - Coronavirus Screening Are you exhibiting any of the following symptoms?: No Close contact with a COVID-19 positive Pt in past 14-21 Days: No - Vaccine Status Have you recieved a Covid-19 vaccination: No - Review of Systems Constitutional: No Symptoms, No Fever, No Chills Eyes: No Symptoms Ears, Nose, & Throat: No Symptoms Respiratory: No Symptoms, No Cough, No Dyspnea Cardiac: No Symptoms, No Chest Pain, No Edema, No Syncope Abdominal/Gastrointestinal: No Symptoms, No Abdominal Pain, No Nausea, No Vomiting, No Diarrhea Genitourinary Symptoms: No Symptoms, No Dysuria Musculoskeletal: No Symptoms, No Back Pain, No Neck Pain Skin: No Symptoms, No Rash Neurological: No Symptoms, No Dizziness, No Focal Weakness, No Sensory Changes Psychological: No Symptoms Endocrine: No Symptoms Hematologic/Lymphatic: No Symptoms Immunological/Allergic: No Symptoms All Other Systems: Reviewed and Negative - Past Medical History Pertinent Past Medical History: Yes Neurological History: No Pertinent History ENT History: No Pertinent History Cardiac History: Other Respiratory History: Asthma Endocrine Medical History: No Pertinent History Musculoskeletal History: No Pertinent History GI Medical History: GERD History: Other Psycho-Social History: Depression Female Reproductive Disorders: Other Other Medical History: pt reports hormonal imbalance, states she does not menstruate, has seen a specialist and her hormones are at "menopause level", heart murmur, kidney stones,pcos - Past Surgical History Past Surgical History: Yes Neuro Surgical History: No Pertinent History Cardiac: No Pertinent History Respiratory: No Pertinent History Gastrointestinal: No Pertinent History Genitourinary: No Pertinent History Musculoskeletal: No Pertinent History Female Surgical History: No Pertinent History Other Surgical History: EGG,Colonoscopy, polynoidal cyst removed - Social History Smoking Status: Current every day smoker How long have you smoked: 14 yrs Exposure to second hand smoke: Yes Drug Use: none Patient Lives Alone: No - Female History Hx Now: No - Nursing Vital Signs Nursing Vital Signs: Initial Vital Signs Temperature 96.8 F 04/28/23 02:11 Pulse Rate 91 H 04/28/23 02:11 Respiratory Rate 20 04/28/23 02:11 Blood Pressure 167/111 04/28/23 02:11 O2 Sat by Pulse Oximetry 98 04/28/23 02:11 Pain Scale Pain Intensity 0 - Physical Exam General Appearance: no apparent distress, alert Eye Exam: PERRL/EOMI, eyes nml inspection Ears, Nose, Throat Exam: normal ENT inspection, pharynx normal, moist mucous membranes Neck Exam: normal inspection, non-tender, supple, full range of motion Respiratory Exam: normal breath sounds, lungs clear, airway intact, No respiratory distress Cardiovascular Exam: regular rate/rhythm, normal heart sounds, normal peripheral pulses Gastrointestinal/Abdomen Exam: soft, tenderness (Mild right CVA tenderness), No mass Back Exam: normal inspection, normal range of motion, No CVA tenderness, No vertebral tenderness Extremity Exam: normal inspection, normal range of motion, pelvis stable Neurologic Exam: alert, 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, cooperative, normal mood/affect, sensation nml, No motor deficits Skin Exam: normal color, warm, dry Lymphatic Exam: No adenopathy SpO2 Interpretation: normal SpO2: 94 O2 Delivery: Room Air - Course Nursing assessment & vital signs reviewed: Yes - CT Exams Abdomen/Pelvis CT Interpretation: Tele-radiologist Report (Small 2.1 mm nonobstructing calculus in the right kidney) Ordered Tests: Active Orders 24 hr Category Date Time Status IV Insertion STAT Care 04/28/23 02:58 Active ABDOMEN AND PELVIS W/0 CONTRAS [CT] Stat Exams 04/28/23 02:37 Taken CBC W DIFF Stat Lab 04/28/23 02:35 Completed CMP Stat Lab 04/28/23 02:35 Completed CULTURE,URINE Stat Lab 04/28/23 04:00 Received HCG QUALITATIVE, SERUM Stat Lab 04/28/23 02:35 Completed UA W/RFX UR CULTURE Stat Lab 04/28/23 04:00 Received Medication Summary Generic Name Dose Route Start Last Admin Trade Name Freq PRN Reason Stop Dose Admin Ceftriaxone Sodium/Dextrose 1 g in 50 mls @ 100 mls/hr 04/28/23 05:16 04/28/23 05:21 Rocephin 1 Gm-D5w 50 Ml Bag IV 04/28/23 05:45 100 mls/hr STAT STA 100 mls/hr Administration Discontinued Medications Generic Name Dose Route Start Last Admin Trade Name Freq PRN Reason Stop Dose Admin Sodium Chloride 1,000 mls @ 999 mls/hr 04/28/23 02:38 04/28/23 02:56 Sodium Chloride 0.9% 1000 Ml IV 04/28/23 03:38 999 mls/hr .Q1H1M STA Administration Sodium Chloride Confirm 04/28/23 02:54 Sodium Chloride 0.9% 1000 Ml Administered 04/28/23 02:55 Dose 1,000 mls @ ud .ROUTE .STK-MED ONE Ceftriaxone Sodium/Dextrose Confirm 04/28/23 05:17 Rocephin 1 Gm-D5w 50 Ml Bag Administered 04/28/23 05:18 Dose 1 g in 50 mls @ ud IV .STK-MED ONE Ketorolac Tromethamine 30 mg 04/28/23 02:41 04/28/23 02:56 Ketorolac Tromethamine 30 Mg/Ml Inj IV 04/28/23 02:42 30 mg STAT ONE Administration Ketorolac Tromethamine Confirm 04/28/23 02:55 Ketorolac Tromethamine 30 Mg/Ml Inj Administered 04/28/23 02:56 Dose 30 mg .ROUTE .STK-MED ONE Ondansetron HCl 4 mg 04/28/23 02:40 04/28/23 02:56 Ondansetron Hcl 4 Mg/2 Ml Vial IV 04/28/23 02:41 4 mg STAT ONE Administration Ondansetron HCl Confirm 04/28/23 02:55 Ondansetron Hcl 4 Mg/2 Ml Vial Administered 04/28/23 02:56 Dose 4 mg .ROUTE .STK-MED ONE Lab/Rad Data: Laboratory Result Diagrams 04/28/23 02:35 04/28/23 02:35 Laboratory Results 04/28/23 04/28/23 04/28/23 Range/Units 04:00 02:35 02:35 WBC (4.0-10.5) x10^3/uL RBC (4.1-5.4) x10^6/uL Hgb (12.0-16.0) g/dL Hct (35-47) % MCV (78-100) fL MCH (26-32) pg MCHC (32-36) g/dL RDW (11.5-14.0) % Plt Count (150-450) x10^3/uL MPV (7.5-11.0) fL Gran % (36.0-66.0) % Immature Gran % (Auto) (0.00-0.4) % Nucleat RBC Rel Count (0.00-0.1) % Eos # (Auto) (0-0.5) x10^3/uL Immature Gran # (Auto) (0.00-0.03) x10^3u/L Absolute Lymphs (auto) (1.0-4.6) x10^3/uL Absolute Monos (auto) (0.0-1.3) x10^3/uL Absolute Nucleated RBC (0.00-0.01) x10^3u/L Lymphocytes % (24.0-44.0) % Monocytes % (0.0-12.0) % Eosinophils % (0.00-5.0) % Basophils % (0.0-0.4) % Absolute Granulocytes (1.4-6.9) x10^3/uL Basophils # (0-0.4) x10^3/uL Sodium 139 (137-145) mmol/L Potassium 4.3 (3.5-5.1) mmol/L Chloride 103 (98-107) mmol/L Carbon Dioxide 27 (22-30) mmol/L Anion Gap 12.8 (5-15) MEQ/L BUN 22 H (7-17) mg/dL Creatinine 0.92 (0.52-1.04) mg/dL Estimated GFR > 60.0 ML/MIN Glucose 110 H (74-106) mg/dL Calcium 9.2 (8.4-10.2) mg/dL Total Bilirubin 0.30 (0.2-1.3) mg/dL AST 32 (14-36) U/L ALT 32 (0-35) U/L Alkaline Phosphatase 67 (38-126) U/L Serum Total Protein 7.6 (6.3-8.2) g/dL Albumin 4.1 (3.5-5.0) g/dL Serum HCG, Qual NEGATIVE (NEGATIVE) Urine Color Yellow (Yellow) Urine Appearance Cloudy A (Clear) Urine pH 6.0 (4.6-8.0) Ur Specific [place] >=1.030 A (1.005-1.030) Urine Protein 30 (Negative) Urine Glucose (UA) Negative (Negative) mg/dL Urine Ketones Trace A (Negative) Urine Blood Trace (Negative) Urine Nitrite Negative (Negative) Urine Bilirubin Negative (Negative) Urine Urobilinogen 0.2 (0.2) mg/dL Ur Leukocyte Esterase Small A (Negative) Urine Microscopic RBC 6-10 A (0-5) /HPF Urine Microscopic WBC 11-20 A (0-5) /HPF Ur Epithelial Cells Many A (None Seen) /HPF Urine Bacteria Moderate A (None Seen) /HPF Urine Yeast (Budding) Rare A (None Seen) /HPF Urine Culture Reflexed YES (NO) Slides for Path Review 04/28/23 Range/Units 02:35 WBC 12.3 H (4.0-10.5) x10^3/uL RBC 5.31 (4.1-5.4) x10^6/uL Hgb 14.7 (12.0-16.0) g/dL Hct 44.7 (35-47) % MCV 84.2 (78-100) fL MCH 27.7 (26-32) pg MCHC 32.9 (32-36) g/dL RDW 13.1 (11.5-14.0) % Plt Count 310 (150-450) x10^3/uL MPV 10.0 (7.5-11.0) fL Gran % 45.3 (36.0-66.0) % Immature Gran % (Auto) 0.7 H (0.00-0.4) % Nucleat RBC Rel Count 0.0 (0.00-0.1) % Eos # (Auto) 0.57 H (0-0.5) x10^3/uL Immature Gran # (Auto) 0.08 H (0.00-0.03) x10^3u/L Absolute Lymphs (auto) 5.28 H (1.0-4.6) x10^3/uL Absolute Monos (auto) 0.71 (0.0-1.3) x10^3/uL Absolute Nucleated RBC 0.00 (0.00-0.01) x10^3u/L Lymphocytes % 43.0 (24.0-44.0) % Monocytes % 5.8 (0.0-12.0) % Eosinophils % 4.6 (0.00-5.0) % Basophils % 0.6 (0.0-0.4) % Absolute Granulocytes 5.58 (1.4-6.9) x10^3/uL Basophils # 0.07 (0-0.4) x10^3/uL Sodium (137-145) mmol/L Potassium (3.5-5.1) mmol/L Chloride (98-107) mmol/L Carbon Dioxide (22-30) mmol/L Anion Gap (5-15) MEQ/L BUN (7-17) mg/dL Creatinine (0.52-1.04) mg/dL Estimated GFR ML/MIN Glucose (74-106) mg/dL Calcium (8.4-10.2) mg/dL Total Bilirubin (0.2-1.3) mg/dL AST (14-36) U/L ALT (0-35) U/L Alkaline Phosphatase (38-126) U/L Serum Total Protein (6.3-8.2) g/dL Albumin (3.5-5.0) g/dL Serum HCG, Qual (NEGATIVE) Urine Color (Yellow) Urine Appearance (Clear) Urine pH (4.6-8.0) Ur Specific [place] (1.005-1.030) Urine Protein (Negative) Urine Glucose (UA) (Negative) mg/dL Urine Ketones (Negative) Urine Blood (Negative) Urine Nitrite (Negative) Urine Bilirubin (Negative) Urine Urobilinogen (0.2) mg/dL Ur Leukocyte Esterase (Negative) Urine Microscopic RBC (0-5) /HPF Urine Microscopic WBC (0-5) /HPF Ur Epithelial Cells (None Seen) /HPF Urine Bacteria (None Seen) /HPF Urine Yeast (Budding) (None Seen) /HPF Urine Culture Reflexed (NO) Slides for Path Review YES - Progress Progress: improved Progress Note: Patient is a 27-year-old female presents to our ED for evaluation of right-sided flank pain. Pain is similar to pain experienced during her previous kidney stone. Physical exam reveals mild right CVA. Physical exam otherwise nonremarkable. Testing includes CT abdomen pelvis which reveals a right nephrolithiasis of 2.1 mm. The calculus is nonobstructing. CBC reveals a leukocytosis of of 12.3. CMP essentially unremarkable. hCG negative for . Urinalysis pending at this time. Our lab reports that the analyzer is down. However a urinalysis result should be available to us soon. Patient received a liter of fluids. Zofran administered for nausea. Toradol administered for pain. Patient reassessed. Pain resolved. Patient resting comfortably. Significant other at bedside. They voiced no other complaints or concerns at this time. Complexity of problem addressed is moderate, acute complicated No critical care time Complexity of data reviewed and analyzed is moderate. Test ordered test reviewed and analyzed. Clinical correlation, imaging study and physical exam completed to finalize diagnosis. No obstructing uropathy/ureterolithiasis observed on CT scan. No hydronephrosis. No evidence of a obstructing kidney stone. At this point it does not appear that patient's flank pain was due to a obstructing kidney stone. No stone observed in the bladder. Risk of complication and or risk morbidity/mortality is moderate. Patient feeling comfortable at this time. It appears Toradol was beneficial in addressing her flank pain. We will forward a prescription to patient's pharmacy for pain control. IV fluids infused. Zofran administered for nausea. We will discharge patient home. Vital stable. Time spent to discharge patient is approximately 10 to 15 minutes. Diagnosis is flank pain. Plan of care established via shared decision making. No social determinants of health present to impede follow-up. Significant other at bedside. They voiced no other complaints or concerns at this time. 04/28/23 05:05 Urinalysis reveals a urinary tract infection. Patient will receive a dose of Rocephin in our ED. A prescription for Macrobid was forwarded to patient's pharmacy. Patient voices no other complaints or concerns at this time. 04/28/23 05:27 Counseled pt/family regarding: lab results, diagnosis, need for follow-up, rad results - Departure Departure Disposition: Home Clinical Impression: Flank pain, Urinary tract infection Condition: Stable Critical Care Time: No Referrals: SOLIS LANGSTON MD [Primary Care Provider] - Follow up/PCP as directed Additional Instructions: Discharge/Care Plan MONTY TOWNSEND was seen on 04/28/23 in the Emergency Room. The patient was counseled regarding Diagnosis,Lab results, Imaging studies, need for follow up and when to return to the Emergency Room. Prescriptions given: Discharge Note I have spoken with the patient and/or caregivers. I have explained the patient's condition, diagnosis and treatment plan based on the information available to me at this time. I have answered the patient's and/or caregiver's questions and addressed any concerns. The patient and/or caregivers have as good understanding of the patient's diagnosis, condition and treatment plan as can be expected at this point. The vital signs have been stable. The patient's condition is stable and appropriate for discharge from the emergency department. The patient will pursue further outpatient evaluation with the primary care physician or other designated or consulting physician as outlined in the discharge instructions. The patient and/or caregivers are agreeable to this plan of care and follow-up instructions have been explained in detail. The patient and/or caregivers have received these instruction. The patient/and or caregivers are aware that any significant change in condition or worsening of symptoms should prompt an immediate return to this or the closest emergency department or call 911. Prescriptions: Nitrofurantoin Macro 100 mg [Macrobid 100MG Capsule] 100 mg PO BID 7 Days #14 cap Ketorolac Trometh 10 mg Tab [TORAdol 10 MG TABLET] 10 mg PO TID 5 Days #15 tablet
[2023-04-28 05:08] LABS: Appearance Cloudy (Clear); Bilirubin Negative (Negative); Blood Trace (Negative); Glucose, Urine Negative (Negative); Ketones Trace (Negative); Leukocyte Esterase Small (Negative); Nitrite Negative (Negative); Protein,Urine Dip 30 (Negative); Specific Gravity >=1.030 (1.005-1.030); Urobilinogen 0.2 mg/dL (0.2)
[2023-04-28 05:09] LABS: ADD URINE CULTURE? YES (NO); Bacteria Moderate /HPF (None Seen); Budding Yeast Rare /HPF (None Seen); Epithelial Cells Many /HPF (None Seen)
[2023-04-28] MEDS ORDERED: ROCEPHIN 1 Gm-D5w 50 ml Bag** 1 G/50 ML IVPB IV ONE (05:17)
[2023-04-28] MEDS: ROCEPHIN 1 Gm-D5w 50 ml Bag** 1 G/50 ML IVPB IV STA (05:21)
[2023-04-28 05:26] VITALS: BP 119/64; PULSE 80
[2023-04-28 05:28] VITALS: O2SAT 94
--- NOTE | 2023-04-28 08:08 | XRAY ---
CLINICAL HISTORY:pain COMPARISON:None TECHNIQUE:Axial sections of CT abdomen and pelvis were obtained without intravenous contrast administration. ;Reformatted coronal and sagittal images were acquired. FINDINGS: The liver is normal in attenuation and size. No definite focal hepatic lesion. No intrahepatic biliary dilatation.The spleen, pancreas and bilateral adrenal glands appear unremarkable. Gallbladder is partially distended. No cholelithiasis or evidence of acute cholecystitis.Both kidneys are normal in size and shape. Nonobstructing calculus measuring 2.1 mm in the right kidney. No evidence of obstructive uropathy.The urinary bladder is suboptimally distended. Uterus and bilateral adnexa appear unremarkable.The stomach is normally distended. Visualized large and small bowel loops appear grossly unremarkable.The appendix is visualized separately. No definite evidence of acute appendicitis.No ascites or pneumoperitoneum. No pathologic lymphadenopathy.The heart is normal in size. No pericardial effusion. No significant abnormality in the visualized lung bases.No acute bony abnormality. IMPRESSION: Small nonobstructing calculus in the right kidney.No other significant abnormality noted. Electronically Signed by: Shayna Gomez MD. (04/28/2023 03:03:25 [employer])
== END 2023-04-28 05:55 | disposition home or self-care (01) ==
LOC: ED 02:04
DX: N39.0 Urinary tract infection, site not specified (principal); R10.9 Unspecified abdominal pain; R11.0 Nausea; Z28.310 Unvaccinated for COVID-19; Z72.0 Tobacco use
CPT/HCPCS: 36000; 36415; 74176; 80053; 81001; 84703; 85025; 87086; 96365; 96374; 96375; 99284; J0696; J1885; J2405

== ENCOUNTER 2023-09-05 11:06 | Emergency (ER) | payer MEDICAID, OTHER ==
[2023-09-05 11:20] VITALS: TEMP 97; O2SAT 98
[2023-09-05] MEDS ORDERED: Sodium Chloride 0.9% 1000 ML 1,000 ML IV STA (11:24)
[2023-09-05 11:43] LABS: Absolute Neutrophil Ct (ANC) 5.14 x10^3/uL (1.4-6.9); BASOPHIL % 0.7 % (0.0-0.4); Basophil (Absolute #) 0.07 x10^3/uL (0-0.4); Eosinophil % 6.1 % (0.00-5.0); Eosinophil (Absolute #) 0.64 x10^3/uL (0-0.5); Hematocrit 43.4 % (35-47); Hemoglobin 14.4 g/dL (12.0-16.0); IMMATURE GRAN # 0.04 x10^3u/L (0.00-0.03); IMMATURE GRAN % 0.4 % (0.00-0.4); Lymphocyte (Absolute #) 4.12 x10^3/uL (1.0-4.6); Lymphocytes % 39.1 % (24.0-44.0); Mean Cell Volume 84.3 fL (78-100); Mean Corpuscular Hgb Concent. 33.2 g/dL (32-36); Mean Platelet Volume 9.8 fL (7.5-11.0); Monocyte (Absolute #) 0.54 x10^3/uL (0.0-1.3); Monocytes % 5.1 % (0.0-12.0); Neutrophil % 48.6 % (36.0-66.0); Platelet Count 290 x10^3/uL (150-450); Red Blood Count 5.15 x10^6/uL (4.1-5.4); Red Cell Distribution Width 12.7 % (11.5-14.0); White Blood Count 10.6 x10^3/uL (4.0-10.5)
[2023-09-05] MEDS ORDERED: Zofran 4 MG/2 ML VIAL ONE (11:54)
[2023-09-05] MEDS ORDERED: Hydromorphone 1 mg/ml Injection ONE (11:54)
[2023-09-05] MEDS ORDERED: Hydromorphone 1 mg/ml Injection IV ONE (11:54)
[2023-09-05] MEDS ORDERED: Sodium Chloride 0.9% 1000 ML 1,000 ML ONE (11:55)
[2023-09-05] MEDS ORDERED: Zofran 4 MG/2 ML VIAL IV ONE (11:55)
[2023-09-05 11:58] LABS: ALBUMIN 3.3 g/dL (3.5-5.0); ANION GAP 9.8 MEQ/L (5-15); BILIRUBIN,TOTAL 0.4 mg/dL (0.2-1.3); Creatinine 1 0.81 mg/dL (0.52-1.04); EST GLOMERULAR FILTRATION RATE 102.6 ML/MIN; Potassium 4.6 mmol/L (3.5-5.1); Total Protein 6.2 g/dL (6.3-8.2)
--- NOTE | 2023-09-05 12:11 | ERPHSYRPT ---
- History of Present Illness Time Seen by Provider: 09/05/23 11:25 Historian: patient Exam Limitations: no limitations Patient Subjective Stated Complaint: pt here for left shoulder pain since tuesday, she has been taking tylenol and motrin, no injury Triage Nursing Assessment: pt alert, walked in, holding left arm, resp easy, skin w/d/p. has tenderness to clavicle area, no bruising or abrasions noted Physician History: Patient is a 28-year-old white female who presents with a complaint of posterior upper chest pain on the left for 2 weeks. She knows of no particular injury pain is worse with a deep breath or with movement of the left arm. She has not had an injury to the left shoulder. She had tried to see her PCP last but found out that she had no health insurance. Timing/Duration: week(s) (2) Activities at Onset: none Quality: aching Location: shoulder, back (Upper chest On the left) Chest Pain Radiation: no radiation Severity of Pain-Max: moderate Severity of Pain-Current: moderate Modifying Factors: Improves With: movement Associated Symptoms: shortness of breath, hurts to breathe, back pain Allergies/Adverse Reactions: ranitidine Allergy (Mild, Verified 09/05/23 11:15) ciprofloxacin [From Cipro] Allergy (Verified 09/05/23 11:15) doxycycline Allergy (Verified 09/05/23 11:15) famotidine [From Pepcid] Allergy (Verified 09/05/23 11:15) omeprazole Allergy (Verified 09/05/23 11:15) azithromycin Adverse Reaction (Intermediate, Verified 09/05/23 11:15) bradycardia and syncope Hx Tetanus, Diphtheria Vaccination/Date Given: Yes Hx Influenza Vaccination/Date Given: No Hx Pneumococcal Vaccination/Date Given: No Immunizations Up to Date: Yes Travel Risk - International Travel Have you traveled outside of the country in past 3 weeks: No - Coronavirus Screening Are you exhibiting any of the following symptoms?: No Close contact with a COVID-19 positive Pt in past 14-21 Days: No - Vaccine Status Have you recieved a Covid-19 vaccination: No - Review of Systems Constitutional: No Fever, No Chills Eyes: No Symptoms Ears, Nose, & Throat: No Symptoms Respiratory: No Cough, No Dyspnea Cardiac: Chest Pain (Left upper posterior chest pain), No Edema, No Syncope Abdominal/Gastrointestinal: No Abdominal Pain, No Nausea, No Vomiting, No Diarrhea Genitourinary Symptoms: No Dysuria Musculoskeletal: No Back Pain, No Neck Pain Skin: No Rash Neurological: No Dizziness, No Focal Weakness, No Sensory Changes Psychological: No Symptoms Endocrine: No Symptoms All Other Systems: Reviewed and Negative - Past Medical History Pertinent Past Medical History: Yes Neurological History: No Pertinent History ENT History: No Pertinent History Cardiac History: Other Respiratory History: Asthma Endocrine Medical History: No Pertinent History Musculoskeletal History: No Pertinent History GI Medical History: GERD History: Other Psycho-Social History: Depression Female Reproductive Disorders: Other Other Medical History: pt reports hormonal imbalance, states she does not menstruate, has seen a specialist and her hormones are at "menopause level", heart murmur, kidney stones,pcos - Past Surgical History Past Surgical History: Yes Neuro Surgical History: No Pertinent History Cardiac: No Pertinent History Respiratory: No Pertinent History Gastrointestinal: No Pertinent History Genitourinary: No Pertinent History Musculoskeletal: No Pertinent History Female Surgical History: No Pertinent History Other Surgical History: EGG,Colonoscopy, polynoidal cyst removed - Social History Smoking Status: Current every day smoker How long have you smoked: 14 yrs Exposure to second hand smoke: Yes Drug Use: marijuana Patient Lives Alone: No - Female History Hx Last Menstrual Period: none Hx Now: No - Nursing Vital Signs Nursing Vital Signs: Initial Vital Signs Temperature 97.0 F 09/05/23 11:19 Pulse Rate 82 09/05/23 11:19 Respiratory Rate 16 09/05/23 11:19 Blood Pressure 136/76 09/05/23 11:19 O2 Sat by Pulse Oximetry 98 09/05/23 11:19 Pain Scale Pain Intensity 4 - Physical Exam General Appearance: no apparent distress, alert Eye Exam: PERRL/EOMI, eyes nml inspection Ears, Nose, Throat Exam: normal ENT inspection, moist mucous membranes Neck Exam: normal inspection, non-tender, supple, full range of motion Respiratory Exam: normal breath sounds, lungs clear, No respiratory distress Cardiovascular Exam: regular rate/rhythm, normal heart sounds Gastrointestinal/Abdomen Exam: soft, No tenderness, No mass Back Exam: normal inspection, No CVA tenderness, No vertebral tenderness Extremity Exam: normal inspection, normal range of motion Neurologic Exam: alert, 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, cooperative, normal mood/affect, sensation nml, No motor deficits Skin Exam: normal color, warm, dry SpO2: 98 - Course Nursing assessment & vital signs reviewed: Yes EKG Interpreted by Me: RATE (83), Sinus Rhythm, NORMAL AXIS, NORMAL INTERVALS, Non-specific ST Changes - CT Exams Chest CT Interpretation: Negative, Other (Reviewed by me) Ordered Tests: Active Orders 24 hr Category Date Time Status EKG-ER Only STAT Care 09/05/23 11:24 Active IV Insertion STAT Care 09/05/23 11:24 Active CHEST WITHOUT CONTRAST [CT] Stat Exams 09/05/23 11:25 Completed CBC W DIFF Stat Lab 09/05/23 11:41 Completed CMP Stat Lab 09/05/23 11:41 Completed D-DIMER QUANTITATIVE Stat Lab 09/05/23 11:41 Completed HCG QUALITATIVE, SERUM Stat Lab 09/05/23 Completed TROPONIN Q4H Lab 09/05/23 11:41 Completed TROPONIN Q4H Lab 09/05/23 15:30 Ordered TROPONIN Q4H Lab 09/05/23 19:30 Ordered Urine Triage Profile Stat Lab 09/05/23 12:39 Completed Medication Summary Discontinued Medications Generic Name Dose Route Start Last Admin Trade Name Freq PRN Reason Stop Dose Admin Hydromorphone HCl 1 mg 09/05/23 11:54 09/05/23 12:10 Hydromorphone 1 Mg/1ml Inj IV 09/05/23 11:55 1 mg STAT ONE Administration Hydromorphone HCl Confirm 09/05/23 11:54 Hydromorphone 1 Mg/1ml Inj Administered 09/05/23 11:55 Dose 1 mg .ROUTE .STK-MED ONE Sodium Chloride 1,000 mls @ 999 mls/hr 09/05/23 11:24 09/05/23 13:46 Sodium Chloride 0.9% 1000 Ml IV 09/05/23 12:24 Infused .Q1H1M STA Infusion Sodium Chloride Confirm 09/05/23 11:55 Sodium Chloride 0.9% 1000 Ml Administered 09/05/23 11:56 Dose 1,000 mls @ ud .ROUTE .STK-MED ONE Ondansetron HCl 4 mg 09/05/23 11:55 09/05/23 12:10 Ondansetron Hcl 4 Mg/2 Ml Vial IV 09/05/23 11:56 4 mg STAT ONE Administration Ondansetron HCl Confirm 09/05/23 11:54 Ondansetron Hcl 4 Mg/2 Ml Vial Administered 09/05/23 11:55 Dose 4 mg .ROUTE .STK-MED ONE Lab/Rad Data: Laboratory Result Diagrams 09/05/23 11:41 09/05/23 11:41 Laboratory Results 09/05/23 09/05/23 09/05/23 Range/Units Unknown 12:39 11:41 WBC (4.0-10.5) x10^3/uL RBC (4.1-5.4) x10^6/uL Hgb (12.0-16.0) g/dL Hct (35-47) % MCV (78-100) fL MCH (26-32) pg MCHC (32-36) g/dL RDW (11.5-14.0) % Plt Count (150-450) x10^3/uL MPV (7.5-11.0) fL Gran % (36.0-66.0) % Immature Gran % (Auto) (0.00-0.4) % Nucleat RBC Rel Count (0.00-0.1) % Eos # (Auto) (0-0.5) x10^3/uL Immature Gran # (Auto) (0.00-0.03) x10^3u/L Absolute Lymphs (auto) (1.0-4.6) x10^3/uL Absolute Monos (auto) (0.0-1.3) x10^3/uL Absolute Nucleated RBC (0.00-0.01) x10^3u/L Lymphocytes % (24.0-44.0) % Monocytes % (0.0-12.0) % Eosinophils % (0.00-5.0) % Basophils % (0.0-0.4) % Absolute Granulocytes (1.4-6.9) x10^3/uL Basophils # (0-0.4) x10^3/uL D-Dimer (0.0-0.50) mg/L Sodium (137-145) mmol/L Potassium (3.5-5.1) mmol/L Chloride (98-107) mmol/L Carbon Dioxide (22-30) mmol/L Anion Gap (5-15) MEQ/L BUN (7-17) mg/dL Creatinine (0.52-1.04) mg/dL Estimated GFR ML/MIN Glucose (74-106) mg/dL Calcium (8.4-10.2) mg/dL Total Bilirubin (0.2-1.3) mg/dL AST (14-36) U/L ALT (0-35) U/L Alkaline Phosphatase (38-126) U/L Troponin I < 0.012 (0.000-0.034) ng/mL Serum Total Protein (6.3-8.2) g/dL Albumin (3.5-5.0) g/dL Serum HCG, Qual NEGATIVE (NEGATIVE) Urine Opiates Level POSITIVE (NEGATIVE) Ur Methadone NEGATIVE (NEGATIVE) Urine Barbiturates NEGATIVE (NEGATIVE) Ur Phencyclidine (PCP) NEGATIVE (NEGATIVE) Urine Amphetamine NEGATIVE (NEGATIVE) U Benzodiazepine Level NEGATIVE (NEGATIVE) Urine Cocaine NEGATIVE (NEGATIVE) Urine Marijuana (THC) POSITIVE (NEGATIVE) 09/05/23 09/05/23 09/05/23 Range/Units 11:41 11:41 11:41 WBC 10.6 H (4.0-10.5) x10^3/uL RBC 5.15 (4.1-5.4) x10^6/uL Hgb 14.4 (12.0-16.0) g/dL Hct 43.4 (35-47) % MCV 84.3 (78-100) fL MCH 28.0 (26-32) pg MCHC 33.2 (32-36) g/dL RDW 12.7 (11.5-14.0) % Plt Count 290 (150-450) x10^3/uL MPV 9.8 (7.5-11.0) fL Gran % 48.6 (36.0-66.0) % Immature Gran % (Auto) 0.4 (0.00-0.4) % Nucleat RBC Rel Count 0.0 (0.00-0.1) % Eos # (Auto) 0.64 H (0-0.5) x10^3/uL Immature Gran # (Auto) 0.04 H (0.00-0.03) x10^3u/L Absolute Lymphs (auto) 4.12 (1.0-4.6) x10^3/uL Absolute Monos (auto) 0.54 (0.0-1.3) x10^3/uL Absolute Nucleated RBC 0.00 (0.00-0.01) x10^3u/L Lymphocytes % 39.1 (24.0-44.0) % Monocytes % 5.1 (0.0-12.0) % Eosinophils % 6.1 H (0.00-5.0) % Basophils % 0.7 (0.0-0.4) % Absolute Granulocytes 5.14 (1.4-6.9) x10^3/uL Basophils # 0.07 (0-0.4) x10^3/uL D-Dimer 0.26 (0.0-0.50) mg/L Sodium 134 L (137-145) mmol/L Potassium 4.6 (3.5-5.1) mmol/L Chloride 106 (98-107) mmol/L Carbon Dioxide 23 (22-30) mmol/L Anion Gap 9.8 (5-15) MEQ/L BUN 20 H (7-17) mg/dL Creatinine 0.81 (0.52-1.04) mg/dL Estimated GFR 102.6 ML/MIN Glucose 93 (74-106) mg/dL Calcium 9.0 (8.4-10.2) mg/dL Total Bilirubin 0.40 (0.2-1.3) mg/dL AST 21 (14-36) U/L ALT 23 (0-35) U/L Alkaline Phosphatase 74 (38-126) U/L Troponin I (0.000-0.034) ng/mL Serum Total Protein 6.2 L (6.3-8.2) g/dL Albumin 3.3 L (3.5-5.0) g/dL Serum HCG, Qual (NEGATIVE) Urine Opiates Level (NEGATIVE) Ur Methadone (NEGATIVE) Urine Barbiturates (NEGATIVE) Ur Phencyclidine (PCP) (NEGATIVE) Urine Amphetamine (NEGATIVE) U Benzodiazepine Level (NEGATIVE) Urine Cocaine (NEGATIVE) Urine Marijuana (THC) (NEGATIVE) - Progress Progress: improved Air Movement: good Blood Culture(s) Obtained: No Antibiotics given: No Medical Desision Making - Diagnostic Testing Diagnostic test were ordered, analyzed, and reviewed by me: Yes Radiological Interpretation: Reviewed by me - Risk of complications Low Risk: Low risk of morbidity from additional dx testing or treatment - Departure Departure Disposition: Home Clinical Impression: Subscapular bursitis Condition: Stable Critical Care Time: No Referrals: SOLIS LANGSTON MD [Primary Care Provider] - Follow up/PCP as directed Instructions: Shoulder Bursitis (DC) Prescriptions: Hydrocodone/Acetaminophen [Hydrocodone-Acetamin 5-325 mg] 1 tab PO Q6HPRN PRN 3 Days #12 tablet MDD 4 PRN Reason: Pain Methylprednisolone Packet [Medrol Dosepack] 4 mg PO UD #1 packet
[2023-09-05 12:20] LABS: HCG SERUM TEST NEGATIVE (NEGATIVE)
--- NOTE | 2023-09-05 13:12 | XRAY ---
Indication: Left pleuritic chest pain. Multiple contiguous axial images obtained through the chest without contrast. Comparison: None Lungs inflated and clear. Heart not enlarged. Aorta is normal in course and caliber. No pathologic mediastinal lymphadenopathy. Bony thorax intact. Limited upper abdomen demonstrates nonobstructing punctate calculus unchanged from CT abdomen/pelvis April 28, 2023. Impression: Nonobstructing right renal punctate calculus. Remaining CT chest without contrast exam is normal.
[2023-09-05 13:30] LABS: Amphetamine,Urine NEGATIVE (NEGATIVE); Barbiturate,Urine NEGATIVE (NEGATIVE); Benzodiazepine,Urine NEGATIVE (NEGATIVE); Cocaine,Urine NEGATIVE (NEGATIVE); Methadone,Urine NEGATIVE (NEGATIVE); Opiate,Urine POSITIVE (NEGATIVE); PCP,Urine NEGATIVE (NEGATIVE); THC,Urine POSITIVE (NEGATIVE)
[2023-09-05 14:11] VITALS: BP 118/58; PULSE 68
[2023-09-05] MEDS ORDERED: PERCOCET TABLET 5/325MG PO ONE (14:14)
[2023-09-05] MEDS ORDERED: NORCO 5/325 MG PO ONE (14:22)
[2023-09-05] MEDS ORDERED: NORCO 5/325 MG ONE (14:25)
[2023-09-05 14:44] VITALS: RESP 16
[2023-09-06] MEDS ORDERED: Medrol Dosepack PO SCH (10:00)
== END 2023-09-05 14:45 | disposition home or self-care (01) ==
LOC: ED 11:06
DX: M75.52 Bursitis of left shoulder (principal); R07.9 Chest pain, unspecified; Z79.52 Long term (current) use of systemic steroids; Z79.891 Long term (current) use of opiate analgesic; Z28.310 Unvaccinated for COVID-19; Z72.0 Tobacco use
CPT/HCPCS: 36000; 36415; 71250; 80053; 80307; 84484; 84703; 85025; 85379; 93005; 96360; 96374; 96375; 99284; J1170; J2405; A9270-GY

== ENCOUNTER 2023-10-31 19:40 | Emergency (ER) | payer SELFPAY ==
--- NOTE | 2023-10-31 19:43 | ERPHSYRPT ---
- History of Present Illness Time Seen by Provider: 10/31/23 19:43 Source: patient, family (Spouse) Exam Limitations: no limitations Physician History: This is a morbidly obese 28-year-old white female patient of Dr. Langston who presents with pain in her right foot and ankle. Patient played cards last evening and was sitting for many hours but then got up and noticed significant amount of pain today in those areas. Patient had no significant injury. Because of the amount of pain she had, patient took a Vicodin 5/325 mg at 1030 this morning. She has more of that medicine at home. Patient worked her 6-hour shift today. After her shift she came directly to the emergency department for evaluation. Patient states that she has a history of a hairline fracture in the same foot. It was diagnosed 3 years ago. Patient describes the pain as sharp and achy. Aggravating factors include movement and walking. Method of Injury: unknown Quality: aching, sharpness Severity of Pain-Max: moderate Severity of Pain-Current: moderate Lower Extremities Pain: foot: right, ankle: right Modifying Factors: Improves With: movement Associated Symptoms: other Allergies/Adverse Reactions: ranitidine Allergy (Mild, Verified 10/31/23 20:05) ciprofloxacin [From Cipro] Allergy (Verified 10/31/23 20:05) doxycycline Allergy (Verified 10/31/23 20:05) famotidine [From Pepcid] Allergy (Verified 10/31/23 20:05) omeprazole Allergy (Verified 10/31/23 20:05) azithromycin Adverse Reaction (Intermediate, Verified 10/31/23 20:05) bradycardia and syncope Hx Tetanus, Diphtheria Vaccination/Date Given: Yes Hx Influenza Vaccination/Date Given: No Hx Pneumococcal Vaccination/Date Given: No Travel Risk - International Travel Have you traveled outside of the country in past 3 weeks: No - Coronavirus Screening Are you exhibiting any of the following symptoms?: No Close contact with a COVID-19 positive Pt in past 14-21 Days: No - Vaccine Status Have you recieved a Covid-19 vaccination: No - Review of Systems Constitutional: No Symptoms Eyes: No Symptoms Ears, Nose, & Throat: No Symptoms Respiratory: No Symptoms Cardiac: No Symptoms Abdominal/Gastrointestinal: No Symptoms Genitourinary Symptoms: No Symptoms Musculoskeletal: Other (Pain right foot and ankle. No injury) Skin: No Symptoms Neurological: No Symptoms Psychological: No Symptoms Endocrine: No Symptoms Hematologic/Lymphatic: No Symptoms Immunological/Allergic: No Symptoms All Other Systems: Reviewed and Negative - Past Medical History Pertinent Past Medical History: Yes Neurological History: No Pertinent History ENT History: No Pertinent History Cardiac History: Other Respiratory History: Asthma Endocrine Medical History: No Pertinent History Musculoskeletal History: No Pertinent History GI Medical History: GERD History: Other Psycho-Social History: Depression Female Reproductive Disorders: Other Other Medical History: pt reports hormonal imbalance, states she does not menstruate, has seen a specialist and her hormones are at "menopause level", heart murmur, kidney stones,pcos - Past Surgical History Past Surgical History: Yes Neuro Surgical History: No Pertinent History Cardiac: No Pertinent History Respiratory: No Pertinent History Gastrointestinal: No Pertinent History Genitourinary: No Pertinent History Musculoskeletal: No Pertinent History Female Surgical History: No Pertinent History Other Surgical History: EGG,Colonoscopy, polynoidal cyst removed - Social History Smoking Status: Current every day smoker How long have you smoked: 14 yrs Exposure to second hand smoke: Yes Drug Use: marijuana Patient Lives Alone: No - Nursing Vital Signs Nursing Vital Signs: Initial Vital Signs Temperature 97.4 F 10/31/23 19:52 Pulse Rate 89 10/31/23 19:52 Respiratory Rate 20 10/31/23 19:52 Blood Pressure 157/89 10/31/23 19:52 O2 Sat by Pulse Oximetry 98 10/31/23 19:52 Pain Scale Pain Intensity 7 - Physical Exam General Appearance: no apparent distress, alert, anxiety Eyes, Ears, Nose, Throat Exam: normal ENT inspection, moist mucous membranes Neck Exam: normal inspection, non-tender, supple, full range of motion Cardiovascular/Respiratory Exam: chest non-tender, no respiratory distress Gastrointestinal/Abdominal Exam: non-tender Back Exam: normal inspection, normal range of motion, No CVA tenderness, No vertebral tenderness Hips Exam: bilateral: non-tender, normal inspection, normal range of motion, no evidence of injury Legs Exam: bilateral leg: non-tender, normal inspection, normal range of motion, no evidence of injury Knees Exam: bilateral knee: non-tender, normal inspection, normal range of motion, no evidence of injury Ankle Exam: right ankle: soft tissue tenderness, left ankle: non-tender, bilateral ankle: normal inspection, normal range of motion, no evidence of injury Foot Exam: right foot: soft tissue tenderness, left foot: non-tender, bilateral foot: normal inspection, normal range of motion, no evidence of injury Neuro/Tendon Exam: normal sensation, normal motor functions, normal tendon functions, responds to pain, no evidence tendon injury Mental Status Exam: alert, 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, cooperative Skin Exam: normal color, warm, dry SpO2 Interpretation: normal O2 Delivery: Room Air - Course Nursing assessment & vital signs reviewed: Yes Ordered Tests: Active Orders 24 hr Category Date Time Status ANKLE (3 VIEWS) Stat Exams 10/31/23 20:09 Taken FOOT (MINIMUM 3 VIEWS) Stat Exams 10/31/23 20:08 Taken - Progress Progress: pain not gone completely Progress Note: 10/31/23 20:30 This patient's medical issue is 1 of low complexity. Level complex in the workup performed is based on review of the patient's past medical history, review of the patient's medication list, review the patient's drug allergy list, history present illness and physical findings on examination. The workup in this patient includes x-ray of the right foot and ankle. I interpreted the x-ray of the right foot. X-ray of the right foot shows no acute fracture or dislocation. I interpreted the x-ray of the right ankle as well. X-ray of the right ankle shows no acute fracture or dislocation Counseled pt/family regarding: diagnosis, need for follow-up, rad results Medical Desision Making - Independent Historian Additional History obtained from: Spouse - Diagnostic Testing Diagnostic test were ordered, analyzed, and reviewed by me: Yes Radiological Interpretation: Interpreted by me, Teleradiologist Report - Risk of complications Minimal Risk: Minimal risk of morbidity - Departure Departure Disposition: Home Clinical Impression: Right foot pain, Right ankle pain Condition: Stable Critical Care Time: No Referrals: SOLIS LANGSTON MD [Primary Care Provider] - Follow up/PCP as directed Additional Instructions: Ice pack to right ankle and foot 3 times a day for the next 48 hours. Use your pain medicine that this has been prescribed to you from other source. In addition add ibuprofen 600 mg orally with food 3 times a day for the next 5 days. Elevate your right foot and ankle above the level of your heart when not ambulating. Weightbearing as tolerated. Follow-up with your primary care provider on November 01, 2023 to make arrangements for follow-up appointment for further evaluation management. You may also follow-up in the [facility] orthopedic clinic. It is a walk-in clinic. You do not need to an appointment. It is open Tuesday through Tuesday 8 AM to 10 AM. Forms: Work/School Release Form
[2023-10-31 20:24] VITALS: RESP 20; TEMP 97.4
[2023-10-31 20:55] VITALS: BP 132/103; PULSE 110; O2SAT 97
--- NOTE | 2023-11-01 08:51 | XRAY ---
Indication: Pain following injury. Comparison: None 3 view right ankle demonstrates mild medial soft tissue swelling and tiny heel spurs. No other bony, articular, or soft tissue abnormalities.
--- NOTE | 2023-11-01 08:51 | XRAY ---
Indication: Pain following injury. Comparison: None 3 nonweightbearing views right foot demonstrates tiny posterior/plantar heel spurs. No other bony, articular, or soft tissue abnormalities.
== END 2023-10-31 21:05 | disposition home or self-care (01) ==
LOC: ED 19:40
DX: M25.571 Pain in right ankle and joints of right foot (principal); M79.671 Pain in right foot; Z79.891 Long term (current) use of opiate analgesic; Z28.310 Unvaccinated for COVID-19; Z72.0 Tobacco use
CPT/HCPCS: 73610; 73630; 99282

== ENCOUNTER 2024-03-28 22:09 | Emergency (ER) | payer OTHER ==
[2024-03-28 22:33] VITALS: RESP 18; TEMP 97.7
[2024-03-28 22:36] VITALS: O2SAT 98
[2024-03-28] MEDS ORDERED: TYLENOL 325 MG ONE (22:36)
--- NOTE | 2024-03-28 22:36 | ERPHSYRPT ---
- History of Present Illness Time Seen by Provider: 03/28/24 22:35 Exam Limitations: no limitations Physician History: 28-year-old female presents emergency department for evaluation of pain to her left ankle. Patient states she inverted her left ankle prior to arrival. Pain described as an ache that is localized. No radiation. Pain worse at the anterior lateral aspect of her left ankle. No open or draining lesions. Pain worse with weightbearing and improved with rest. Patient otherwise feels well. She voices no other complaints or concerns at this time. Portions of this note were created with voice recognition technology. There may be grammatical, spelling, punctuation or sound alike errors Method of Injury: twisted Occurred: just prior to arrival Quality: constant Severity of Pain-Max: moderate Severity of Pain-Current: mild Lower Extremities Pain: ankle: left Modifying Factors: Improves With: movement Associated Symptoms: none Allergies/Adverse Reactions: ranitidine Allergy (Mild, Verified 03/28/24 22:23) ciprofloxacin [From Cipro] Allergy (Verified 03/28/24 22:23) doxycycline Allergy (Verified 03/28/24 22:23) famotidine [From Pepcid] Allergy (Verified 03/28/24 22:23) omeprazole Allergy (Verified 03/28/24 22:23) azithromycin Adverse Reaction (Intermediate, Verified 03/28/24 22:23) bradycardia and syncope Home Medications: No Reportable Medications [No Reported Medications] 03/28/24 [History] Hx Tetanus, Diphtheria Vaccination/Date Given: Yes Hx Influenza Vaccination/Date Given: No Hx Pneumococcal Vaccination/Date Given: No - Review of Systems Constitutional: No Symptoms, No Fever, No Chills Eyes: No Symptoms Ears, Nose, & Throat: No Symptoms Respiratory: No Symptoms, No Cough, No Dyspnea Cardiac: No Symptoms, No Chest Pain, No Edema, No Syncope Abdominal/Gastrointestinal: No Symptoms, No Abdominal Pain, No Nausea, No Vomiting, No Diarrhea Genitourinary Symptoms: No Symptoms, No Dysuria Musculoskeletal: No Symptoms, No Back Pain, No Neck Pain Skin: No Symptoms, No Rash Neurological: No Symptoms, No Dizziness, No Focal Weakness, No Sensory Changes Psychological: No Symptoms Endocrine: No Symptoms Hematologic/Lymphatic: No Symptoms Immunological/Allergic: No Symptoms All Other Systems: Reviewed and Negative - Past Medical History Pertinent Past Medical History: Yes Neurological History: No Pertinent History ENT History: No Pertinent History Cardiac History: Other Respiratory History: Asthma Endocrine Medical History: No Pertinent History Musculoskeletal History: No Pertinent History GI Medical History: GERD History: Other Psycho-Social History: Depression Female Reproductive Disorders: Other Other Medical History: pt reports hormonal imbalance, states she does not menstruate, has seen a specialist and her hormones are at "menopause level", heart murmur, kidney stones,pcos - Past Surgical History Past Surgical History: Yes Neuro Surgical History: No Pertinent History Cardiac: No Pertinent History Respiratory: No Pertinent History Gastrointestinal: No Pertinent History Genitourinary: No Pertinent History Musculoskeletal: No Pertinent History Female Surgical History: No Pertinent History Other Surgical History: EGG,Colonoscopy, polynoidal cyst removed - Female History Hx Now: No - Social History Smoking Status: Current every day smoker How long have you smoked: 14 yrs Exposure to second hand smoke: Yes Drug Use: marijuana Patient Lives Alone: No - Nursing Vital Signs Nursing Vital Signs: Initial Vital Signs Temperature 97.7 F 03/28/24 22:25 Pulse Rate 98 H 03/28/24 22:25 Respiratory Rate 18 03/28/24 22:25 Blood Pressure 148/84 03/28/24 22:25 O2 Sat by Pulse Oximetry 99 03/28/24 22:25 Pain Scale Pain Intensity 4 - Physical Exam General Appearance: no apparent distress, alert Neck Exam: normal inspection, full range of motion Cardiovascular/Respiratory Exam: chest non-tender, normal breath sounds, regular rate/rhythm, no respiratory distress Gastrointestinal/Abdominal Exam: non-tender Back Exam: normal inspection, normal range of motion, No vertebral tenderness Hips Exam: bilateral: non-tender, normal inspection, normal range of motion, no evidence of injury Legs Exam: bilateral leg: non-tender, normal inspection, normal range of motion, no evidence of injury Knees Exam: bilateral knee: non-tender, normal inspection, normal range of motion, no evidence of injury Ankle Exam: right ankle: non-tender, normal inspection, normal range of motion, no evidence of injury, left ankle: pain, soft tissue tenderness, swelling (The involved left lower extremities neurovascular tact distally compartments are soft cap refill less than 2 seconds. No open or draining lesions) Foot Exam: bilateral foot: non-tender, normal inspection, normal range of motion, no evidence of injury Neuro/Tendon Exam: normal sensation, normal motor functions Mental Status Exam: alert, 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, cooperative Skin Exam: normal color, warm, dry SpO2 Interpretation: normal SpO2: 98 O2 Delivery: Room Air - Course Nursing assessment & vital signs reviewed: Yes - Radiology Exams Ankle X-ray Interpretation: Teleradiologist Report (No fracture or dislocation) Ordered Tests: Active Orders 24 hr Category Date Time Status ANKLE (3 VIEWS) Stat Exams 03/28/24 22:27 Taken Medication Summary Discontinued Medications Generic Name Dose Route Start Last Admin Trade Name Sapna PRN Reason Stop Dose Admin Acetaminophen 975 mg 03/28/24 22:31 03/28/24 22:37 Acetaminophen 325 Mg Tablet PO 03/28/24 22:32 975 mg STAT ONE Administration Acetaminophen Confirm 03/28/24 22:36 Acetaminophen 325 Mg Tablet Administered 03/28/24 22:37 Dose 975 mg .ROUTE .[facility] [employer] - Progress Progress: improved Progress Note: 28-year-old female presents to our ED with left ankle pain after a inversion ankle injury. Physical exam reveals pain over the ATFL ligament. Overlying soft tissue intact. The involved extremities neurovascular tact distally compartments are soft cap refill less than 2 seconds. Patient requested Tylenol for pain control. X-rays negative for fracture dislocation. There appears to be a ankle sprain. Bilateral axillary crutches provided. Patient given a referral to the orthopedic clinic. She voices no other complaints or concerns at this time. Portions of this note were created with voice recognition technology. There may be grammatical, spelling, punctuation or sound alike errors Complexity problem addressed is moderate acute complicated. No critical care time. Complex of data reviewed and analyzed is moderate. Dr. Robles independently reviewed the x-rays of the involved digit. Formal read pending. Risk of complication and or risk of morbidity/mortality patient management is low. Vital stable. Time spent to discharge patient is approximately 15 minutes. Plan of care established for shared decision making. No social determinants of health present impede follow-up. Portions of this note were created with voice recognition technology. There may be grammatical, spelling, punctuation or sound alike errors 03/28/24 22:52 Counseled pt/family regarding: diagnosis, need for follow-up, rad results - Departure Departure Disposition: Home Clinical Impression: Ankle sprain Condition: Stable Critical Care Time: No Referrals: SOLIS LANGSTON MD [Primary Care Provider] - Follow up/PCP as directed Additional Instructions: Discharge/Care Plan MONTY TOWNSEND was seen on 03/28/24 in the Emergency Room. The patient was counseled regarding Diagnosis,Lab results, Imaging studies, need for follow up and when to return to the Emergency Room. Prescriptions given: Discharge Note I have spoken with the patient and/or caregivers. I have explained the patient's condition, diagnosis and treatment plan based on the information available to me at this time. I have answered the patient's and/or caregiver's questions and addressed any concerns. The patient and/or caregivers have as good understanding of the patient's diagnosis, condition and treatment plan as can be expected at this point. The vital signs have been stable. The patient's condition is stable and appropriate for discharge from the emergency department. The patient will pursue further outpatient evaluation with the primary care physician or other designated or consulting physician as outlined in the discharge instructions. The patient and/or caregivers are agreeable to this plan of care and follow-up instructions have been explained in detail. The patient and/or caregivers have received these instruction. The patient/and or caregivers are aware that any significant change in condition or worsening of symptoms should prompt an immediate return to this or the closest emergency department or call 911. Outpatient Orders: Ortho Referral Time Frame: 1 Day, Facility: [facility]. [facility], Location: [facility]
[2024-03-28] MEDS: TYLENOL 325 MG PO ONE (22:37)
[2024-03-28 22:55] VITALS: BP 130/74; PULSE 90
--- NOTE | 2024-03-29 08:54 | XRAY ---
Indication: Pain following tripping. Comparison: None 3 view left ankle demonstrates mild diffuse soft tissue swelling. No other bony, articular, or soft tissue abnormalities.
== END 2024-03-28 22:59 | disposition home or self-care (01) ==
LOC: ED 22:09
DX: S93.402A Sprain of unspecified ligament of left ankle, initial encounter (principal); X50.0XXA Overexertion from strenuous movement or load, initial encounter; Z72.0 Tobacco use
CPT/HCPCS: 73610; 99282; A9270-GY